=== PATIENT | male | born 1945 | race American Indian/Alaskan Native ===

== ENCOUNTER 2017-02-25 07:41 | Inpatient (IN) | payer MEDICARE ==
[2017-02-23 08:32] VITALS: BMI 21.2
[2017-02-25] MEDS ORDERED: Acetylcysteine 20% Inhal Soln (4ml) INH ONE (07:45)
[2017-02-25] MEDS ORDERED: HEPARIN-NS 5,000 UNITS/500 ML 10,000 UNIT/1,000 ML BAG IV ONE (08:15)
[2017-02-25] MEDS ORDERED: Iodixanol 320 MG/ML 200 ML BOTTLE IV ONE (08:15)
[2017-02-25] MEDS ORDERED: ceFAZolin IV 1 gm in Dextrose 0 GM/0 ML BAG IVPB ONE (08:15)
[2017-02-25] MEDS ORDERED: Sodium Chloride 0.9% 1,000 ML IV ONE (08:19)
[2017-02-25] MEDS ORDERED: Dexmedetomidine Hydrochloride 100 mcg/ml (2ML) ONE (08:38)
[2017-02-25] MEDS ORDERED: Propofol 10 mg/ml 1,000 MG/100 ML VIAL ONE (08:39)
[2017-02-25] MEDS ORDERED: ceFAZolin IV 2 gm in Dextrose 1 GM/50 ML BAG IVPB ONE (08:41)
[2017-02-25] MEDS ORDERED: Midazolam 2 MG/2 ML VIAL ONE (08:47)
[2017-02-25] MEDS ORDERED: Lactated Ringer's 1,000 ML IV ONE ×2 (08:50→10:30)
[2017-02-25] MEDS ORDERED: Sodium Chloride 0.9% 500 ML IV ONE (08:50)
[2017-02-25] MEDS ORDERED: Lidocaine 1% Inj (20ml) ONE (08:51)
[2017-02-25] MEDS ORDERED: HYDROmorphone 0.5 mg/0.5 ml ISec IVP PRN (10:57)
[2017-02-25] MEDS ORDERED: HEPARIN-NS 5,000 UNITS/500 ML 5,000 UNIT/500 ML BAG IV ONE (11:11)
--- NOTE | 2017-02-25 12:03 | PCM.SURG1 ---
Surgeon's Initial Post Op Note - Surgeon's Notes Surgeon: marla/ Barbie Hoffman Director Of Curriculum And Instruction: 0 Type of Anesthesia: IV Sedation Anesthesia Administered By: kerri Pre-Operative Diagnosis: AAA Operative Findings: successful deployment of stent graft. with no evidence of endo leak Post-Operative Diagnosis: same Operation Performed: Percutaneous endovascular repair of AAA. suprarenal 34- 100. main body 28-90. left iliac extension 20-13/80. balloon 9x40 left ext ilac distal to stent. perclose both groins Specimen/Specimens Removed: 0 Estimated Blood Loss: EBL {In ML}: 300 Blood Products Given: N/A Drains Used: No Drains Post-Op Condition: Good Date of Surgery/Procedure: 02/25/17 Time of Surgery/Procedure: 12:03
[2017-02-25] MEDS ORDERED: Acetylcysteine 20% Inhal Soln (4ml) PO SCH ×2 (12:15→14:00)
[2017-02-25 12:47] LABS: HEMATOCRIT 35.1 % (35.0-51.0); MEAN CELL VOLUME 87.8 fL (80.0-94.0); MEAN CORPUSCULAR HEMOGLOBIN 28.5 pg (27.0-31.0); MEAN CORPUSCULAR HGB CONC 32.5 g/dL (33.0-37.0); MEAN PLATELET VOLUME 8.2 fL (7.2-11.7); RED CELL DISTRIBUTION WIDTH 15.4 % (11.5-14.5); WHITE BLOOD COUNT 8.5 K/uL (4.8-10.8)
[2017-02-25 13:06] LABS: POTASSIUM 5.1 mmol/L (3.6-5.2)
[2017-02-25 13:08] LABS: BILIRUBIN,TOTAL 0.3 mg/dL (0.2-1.3)
[2017-02-25 13:09] LABS: ALB/GLOB RATIO 0.9 (1.0-2.1); CALCIUM 7.4 mg/dl (8.6-10.4); TOTAL PROTEIN 5.5 g/dL (6.3-8.3)
[2017-02-25] MEDS ORDERED: ceFAZolin 1 gm FROZEN Premix 1 GM/50 ML ML IVPB SCH (14:00)
--- NOTE | 2017-02-25 16:12 | OP ---
PROCEDURE DATE: 02/25/2017 PREOPERATIVE DIAGNOSIS: Abdominal aortic aneurysm. POSTOPERATIVE DIAGNOSIS: Abdominal aortic aneurysm. PROCEDURE CARRIED OUT: Percutaneous endovascular repair of abdominal aortic aneurysm using AFX2 Endo logix stent graft with 1 proximal extension, 1 left iliac extension and subsequently balloon angiopla sty outside the zone. DESCRIPTION OF PROCEDURE: Initially percutaneous access was obtained via the left groin and 2 Perclo se devices were deployed using micropuncture technique. On the right side, we deployed a 7-Serbian sh eath into the region of the iliac bifurcation. Subsequent to this, the wires were exchanged for a Siobhan nderquist wire into the thoracic aorta and then the main device was deployed over the wire. A snare was used to retract the feeder wire from the left side down into the right side and at this point, we had some technical problems ____ dissection after we had eventually ____ surmounted and the device w as snared, pulled out and the device was deployed onto the aortic bifurcation where both of these wer e released at the appropriate position. After this had all been held into proper position, we then p laced a pigtail catheter up to the region of the aortic bifurcation. I took a set of films to see wh ere the location of the renal arteries were with the proper orientation and then deployed the proxima l piece, which was 34 x 100 piece. The main body had been a 28 x 90 with the limbs of 20 x 30. Afte r they had been deployed appropriately, we then ____ there was a floating flap on the left side at th e region of the stent, so we deployed a longer stent here, an extension measuring 20 x 13 in outward diameters and 88 length. This was deployed appropriately with resolution of this problem ____. Dist al to this, there was a slight area of narrowing and we ballooned this with a 9 mm balloon. In addit ion, inside the stent, there was an area of 6 mm measured, we deployed this with a 9 mm balloon and d ilated it successfully. So at this point, we had deployed the main body, the proximal extension, the left iliac extension and then inside the stent there was some narrowing, we ballooned that with a 9 mm balloon and then just distal to this, we also deployed it. After this had been completed, we chec ked for endoleaks and had final films that were quite satisfactory, both above and below with seals. We then removed the device and deployed the Perclose devices on both sides and terminated the proced ure. Blood loss for the procedure was approximately 300 mL. SURGEON: Dr. Sami Hung. COSURGEON: Interventional radiologist, Dr. Nhan Hoffman. ANESTHESIA: Lydia Coleman CRNA. ESTIMATED BLOOD LOSS: 300 mL. OPERATION CARRIED OUT: Percutaneous endovascular repair of abdominal aortic aneurysm with deployment of an AFX2 endovascular stent graft with main body proximally and an open mesh extension and distall y one extension into the left iliac artery. Sami Hung Jr., MD cc: [id number] TT: 02/25/2017 13:56:51 pepito
[2017-02-25] MEDS: ceFAZolin 1 gm FROZEN Premix 1 GM/50 ML ML IVPB SCH (16:26)
[2017-02-25] MEDS: Dextrose 5%/0.45% NS 1,000 ML IV SCH ×3 (16:27→22:51)
--- NOTE | 2017-02-25 16:50 | RAD ---
PROCEDURE: Intraoperative fluoroscopy HISTORY: AAA COMPARISON: Not available TECHNIQUE: Intraoperative fluoroscopy was provided for aortic stent placement. Total time of fluoroscopy was 2263.4 seconds. FINDINGS: Multiple fluoroscopic spot films are submitted. Films are on file for review. IMPRESSION: Fluoroscopy provided.
[2017-02-25] MEDS: Sodium Chloride 0.9% 1,000 ML IV SCH ×2 (17:16→17:19)
[2017-02-25] MEDS: HYDROmorphone 1 mg/ml ISec IVP PRN (17:50)
[2017-02-26] MEDS: ceFAZolin 1 gm FROZEN Premix 1 GM/50 ML ML IVPB SCH ×2 (01:14→08:42)
[2017-02-26] MEDS: Dextrose 5%/0.45% NS 1,000 ML IV SCH ×2 (01:15→07:31)
[2017-02-26] MEDS: HYDROmorphone 1 mg/ml ISec IVP PRN (01:35)
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
[2017-02-26 06:38] LABS: HEMATOCRIT 33.8 % (35.0-51.0); MEAN CELL VOLUME 87.9 fL (80.0-94.0); MEAN CORPUSCULAR HEMOGLOBIN 28.3 pg (27.0-31.0); MEAN CORPUSCULAR HGB CONC 32.2 g/dL (33.0-37.0); MEAN PLATELET VOLUME 8.8 fL (7.2-11.7); WHITE BLOOD COUNT 13.7 K/uL (4.8-10.8)
[2017-02-26 07:02] LABS: CHLORIDE 109 mmol/L (98-107); POTASSIUM 4.5 mmol/L (3.6-5.2); SODIUM 132 mmol/L (132-148)
[2017-02-26 07:04] LABS: ALKALINE PHOSPHATASE 104 U/L (38-126); AST/SGOT 17 U/L (17-59); BILIRUBIN,TOTAL 0.5 mg/dL (0.2-1.3); BLOOD UREA NITROGEN 21 mg/dL (9-20); CARBON DIOXIDE 18 mmol/L (22-30); GFR AFRICAN-AMERICAN > 60; TOTAL PROTEIN 5.4 g/dL (6.3-8.3)
[2017-02-26 07:05] LABS: ALT/SGPT 17 U/L (21-72); CALCIUM 7.7 mg/dl (8.6-10.4); GLUCOSE,RANDOM 93 mg/dL (75-110); MAGNESIUM 1.8 mg/dL (1.6-2.3); PHOSPHOROUS 3.2 mg/dL (2.5-4.5)
[2017-02-26 07:11] LABS: ALB/GLOB RATIO 0.9 (1.0-2.1)
[2017-02-26] MEDS ORDERED: Magnesium Hydroxide Susp 30 ml UD PO ONE (08:01)
--- NOTE | 2017-02-26 10:42 | CP.PCM.PN ---
<Enoch Leggett - Last Filed: 02/26/17 10:42> Subjective - Date & Time of Evaluation Date of Evaluation: 02/26/17 Time of Evaluation: 10:40 - Subjective Subjective: SURGERY NOTE FOR DR. HUNG 71M seen and examined at bedside. Patient doing well, no complaints. Sitting up eating breakfast. Patient is tolerating diet. Denies pain, right groin site of operation is CDI. Objective - Vital Signs/Intake and Output Vital Signs (last 24 hours): Temp Pulse Resp BP Pulse Ox 97.4 F L 97 H 18 147/95 H 100 02/26/17 08:00 02/26/17 08:00 02/26/17 09:00 02/26/17 10:02 02/26/17 09:00 Intake and Output: 02/26/17 02/26/17 06:59 18:59 Intake Total 2135 600 Output Total 505 180 Balance 1630 420 - Medications Medications: Current Medications Acetylcysteine (Acetylcysteine 20%) 3 ml PO Q12H [facility] Aspirin (Ecotrin) 81 mg PO DAILY [facility] Last Admin: 02/26/17 09:01 Dose: 81 mg Clopidogrel Bisulfate (Plavix) 75 mg PO DAILY [facility] Last Admin: 02/26/17 09:01 Dose: 75 mg Enalapril Maleate (Vasotec) 10 mg PO DAILY [facility] Last Admin: 02/26/17 10:02 Dose: 10 mg Famotidine (Pepcid) 20 mg PO DAILY [facility] Last Admin: 02/26/17 09:01 Dose: 20 mg Finasteride (Proscar) 5 mg PO DAILY [facility] Last Admin: 02/26/17 09:02 Dose: 5 mg Hydromorphone HCl (Dilaudid) 1 mg IVP Q4H PRN PRN Reason: Pain, moderate (4-7) Last Admin: 02/26/17 01:35 Dose: 1 mg Cefazolin Sodium (Ancef) 1 gm in 50 mls @ 100 mls/hr IVPB Q8H [facility] Stop: 02/26/17 17:01 Last Admin: 02/26/17 08:42 Dose: 100 mls/hr Phenytoin Sodium (Dilantin) 100 mg PO TID [facility] Last Admin: 02/26/17 09:01 Dose: 100 mg Pneumococcal Polyvalent Vaccine (Pneumovax 23 Vaccine) 0.5 ml IM .ONCE ONE Stop: 02/28/17 15:58 Rosuvastatin Calcium (Crestor) 10 mg PO HS [facility] - Labs Labs: 02/26/17 06:27 02/26/17 06:27 - Constitutional Appears: Non-toxic, No Acute Distress - Respiratory Exam Respiratory Exam: Clear to Ausculation Bilateral, NORMAL BREATHING PATTERN - Cardiovascular Exam Cardiovascular Exam: REGULAR RHYTHM, +S1, +S2 - GI/Abdominal Exam GI & Abdominal Exam: Soft. absent: Distended, Firm, Guarding, Rigid, Tenderness , Rebound - Extremities Exam Additional comments: right groin CDI - Neurological Exam Neurological Exam: Alert, Awake - Skin Skin Exam: Dry, Intact, Normal Color, Warm Assessment and Plan - Assessment and Plan (Free Text) Assessment: 71m presents s/p EVAR POD1 - continue pain control - Out of bed/ DC vance - abdominal exams, right groin check - ADAT -Further recs discuss with Dr. Abhilash Leggett, PGY1 <Sami Hung Jr. - Last Filed: 02/26/17 14:28> Subjective - Subjective Subjective: dw hct stable bun cr lower legs well perfused dc home fu 1 week Objective - Vital Signs/Intake and Output Vital Signs (last 24 hours): Temp Pulse Resp BP Pulse Ox 98.1 F 118 H 19 139/84 100 02/26/17 12:00 02/26/17 12:30 02/26/17 12:30 02/26/17 12:00 02/26/17 12:30 Intake and Output: 02/26/17 02/26/17 06:59 18:59 Intake Total 2135 1150 Output Total 505 370 Balance 1630 780 - Medications Medications: Current Medications Acetylcysteine (Acetylcysteine 20%) 3 ml PO Q12H [facility] Aspirin (Ecotrin) 81 mg PO DAILY [facility] Last Admin: 02/26/17 09:01 Dose: 81 mg Clopidogrel Bisulfate (Plavix) 75 mg PO DAILY [facility] Last Admin: 02/26/17 09:01 Dose: 75 mg Enalapril Maleate (Vasotec) 10 mg PO DAILY [facility] Last Admin: 02/26/17 10:02 Dose: 10 mg Famotidine (Pepcid) 20 mg PO DAILY [facility] Last Admin: 02/26/17 09:01 Dose: 20 mg Finasteride (Proscar) 5 mg PO DAILY [facility] Last Admin: 02/26/17 09:02 Dose: 5 mg Hydromorphone HCl (Dilaudid) 1 mg IVP Q4H PRN PRN Reason: Pain, moderate (4-7) Last Admin: 02/26/17 01:35 Dose: 1 mg Cefazolin Sodium (Ancef) 1 gm in 50 mls @ 100 mls/hr IVPB Q8H [facility] Stop: 02/26/17 17:01 Last Admin: 02/26/17 08:42 Dose: 100 mls/hr Phenytoin Sodium (Dilantin) 100 mg PO TID [facility] Last Admin: 02/26/17 09:01 Dose: 100 mg Pneumococcal Polyvalent Vaccine (Pneumovax 23 Vaccine) 0.5 ml IM .ONCE ONE Stop: 02/28/17 15:58 Rosuvastatin Calcium (Crestor) 10 mg PO HS [facility] - Labs Labs: 02/26/17 06:27 02/26/17 06:27
[2017-02-26 13:00] VITALS: BP 139/84; PULSE 118; RESP 19
[2017-02-26] MEDS ORDERED: Pneumococcal 23-Valent Vaccine IM ONE (14:52)
[2017-02-26 16:12] VITALS: TEMP 98.4; O2SAT 99
--- NOTE | 2017-02-27 10:36 | CON ---
DATE: 02/26/2017 A 71-year-old male, history of hypertension, seizure, back pain, history of abdominal aneurysm, admit clarisa to the hospital with chief complaint of aneurysm and repair. The patient has a longstanding hist ory of hypertension with seizures ____. The patient is ex-smoker. PHYSICAL EXAMINATION: GENERAL: The patient is awake, alert, oriented. VITAL SIGNS: Temperature 98, pulse 90. HEENT: Within normal limits. NECK: Supple. CHEST: Symmetrical. HEART: Regular. ABDOMEN: Soft. EXTREMITIES: No edema. The patient suffers from abdominal aneurysm, hypertension, seizure, back pain. The patient sill get aneurysm repair, supportive care, ____ blood pressure medication. Arthur Gould MD cc: [id number] TT: 02/26/2017 11:20:11 Confirmation # [id number] Dictation # [id number] tn
[2017-02-28] MEDS ORDERED: Pneumococcal 23-Valent Vaccine IM ONE (15:57)
== END 2017-02-26 16:55 | disposition home or self-care (01) | DRG 269 ==
LOC: C.9S 07:41 → C.9I 12:35
PROVIDERS: ADMIT Surgery Vascular Surgery; ATTEND Surgery Vascular Surgery
PROC: 04V03D6 (ICD-10-PCS; principal; 2017-02-25 09:00)
DX: I71.4 Abdominal aortic aneurysm, without rupture (principal); I10 Essential (primary) hypertension; M54.9 Dorsalgia, unspecified; H53.8 Other visual disturbances; Z87.891 Personal history of nicotine dependence; Z23 Encounter for immunization; Z86.73 Personal history of transient ischemic attack (TIA), and cerebral infarction without residual deficits

== ENCOUNTER 2018-08-04 12:39 | Inpatient (IN) | payer MEDICARE ==
[2018-08-04 12:40] VITALS: BMI 21.2
[2018-08-04 14:01] LABS: BASO # 0.1 K/uL (0.0-0.2); BASO % 1.3 % (0.0-2.0); EOS # 0.2 K/uL (0.0-0.7); EOS % 2.9 % (0.0-4.0); HEMOGLOBIN 12.3 g/dL (12.0-18.0); LYMPH # 1.7 K/uL (1.0-4.3); LYMPH % 21.4 % (20.0-40.0); MEAN CELL VOLUME 85.6 fL (80.0-94.0); MEAN CORPUSCULAR HEMOGLOBIN 27.7 pg (27.0-31.0); MEAN CORPUSCULAR HGB CONC 32.4 g/dL (33.0-37.0); MEAN PLATELET VOLUME 9.1 fL (7.2-11.7); MONO # 0.7 K/uL (0.0-0.8); MONO % 8.3 % (0.0-10.0); NEUT # 5.3 K/uL (1.8-7.0); NEUT % 66.1 % (50.0-75.0); RBC 4.44 Mil/uL (4.40-5.90); RED CELL DISTRIBUTION WIDTH 15.6 % (11.5-14.5); WHITE BLOOD COUNT 8.1 K/uL (4.8-10.8)
--- NOTE | 2018-08-04 14:11 | C.PDOC ---
History Of Present Illness 73 year old male presents to the ED referred by Dr. Prince for renal insufficiency to be admitted under the service of Dr. Sin for dialysis. Reports his renal function has been deteriorating pver the past 2 months. He has mild intermittent pedal edema. Denies any bladder dysfunction, shortness of breath, chest pain, fever, chills, nausea, vomiting, or any other symptoms. Time Seen by Provider: 08/04/18 13:33 Chief Complaint (Nursing): Medical Clearance History Per: Patient History/Exam Limitations: no limitations Onset/Duration Of Symptoms: Days Current Symptoms Are (Timing): Still Present Reports Recently: Treated By A Physician Past Medical History Reviewed: Historical Data, Nursing Documentation, Vital Signs Vital Signs: Last Vital Signs Temp 97.5 F L 08/04/18 12:42 Pulse 90 08/04/18 12:42 Resp 18 08/04/18 12:42 BP 190/104 H 08/04/18 12:42 Pulse Ox 100 08/04/18 12:42 - Medical History PMH: Fractures (BACK RODS AND PINS OVER 30 YRS AGO), HTN, TIA (?? NO RESIDUAL) Surgical History: Endoscopy - [facility] Procedures RESTRICT ABD AORTA, BIFURC, W INTRALUM DEV, PERC (02/25/17) Family History: States: No Known Family Hx - Social History Hx Alcohol Use: Yes (Ex drinker) Hx Substance Use: No - Immunization History Hx Tetanus Toxoid Vaccination: No Hx Influenza Vaccination: Yes (08/02/2018) Hx Pneumococcal Vaccination: No Review Of Systems Except As Marked, All Systems Reviewed And Found Negative. Constitutional: Negative for: Fever, Chills Cardiovascular: Negative for: Chest Pain Respiratory: Negative for: Shortness of Breath Gastrointestinal: Negative for: Nausea, Vomiting Genitourinary: Positive for: Other (renal insufficiency). Negative for: Incontinence Physical Exam - Physical Exam Appears: Non-toxic, No Acute Distress Skin: Warm, Dry, No Rash Head: Normacephalic Eye(s): bilateral: Normal Inspection Nose: Normal Oral Mucosa: Moist Neck: Supple Chest: Symmetrical Respiratory: Rales (basilar), No Rhonchi, No Wheezing Gastrointestinal/Abdominal: Soft, No Tenderness Extremity: Normal ROM, Swelling (b/l feet ) Extremity: Bilateral: Atraumatic, Normal Color And Temperature, Normal ROM Neurological/Psych: Oriented x3, Normal Speech ED Course And Treatment - Laboratory Results Result Diagrams: 08/04/18 13:58 08/04/18 13:58 Lab Interpretation: Abnormal (K+ 5.8, HCO3 16, BUN 50, Cr 3.3) O2 Sat by Pulse Oximetry: 100 (RA) Pulse Ox Interpretation: Normal - Radiology CXR: Viewed By Me, Read By Radiologist CXR Interpretation: Yes: No Acute Disease - Physician Consult Information Time Consulting Physician Contacted: 14:52 Physician Contacted: Arthur Sin Outcome Of Conversation: Patient to be admitted to his service for initiation of remal dialysis. Medical Decision Making Medical Decision Making: Plan - EKG - Bloodwork - CXR - UA Disposition - Disposition Disposition: HOSPITALIZED Disposition Time: 14:53 Condition: STABLE - POA Present On Arrival: None - Clinical Impression Clinical Impression: End stage renal disease, Hyperkalemia - Scribe Statement The provider has reviewed the documentation as recorded by the Scribe Aissatou Lott All medical record entries made by the Scribe were at my direction and personally dictated by me. I have reviewed the chart and agree that the record accurately reflects my personal performance of the history, physical exam, medical decision making, and the department course for this patient. I have also personally directed, reviewed, and agree with the discharge instructions and dis position.
[2018-08-04 14:14] LABS: CALCIUM 8.5 mg/dl (8.6-10.4)
[2018-08-04 14:18] LABS: ALB/GLOB RATIO 1.3 (1.0-2.1); ALBUMIN 4.4 g/dL (3.5-5.0)
[2018-08-04 14:27] LABS: SQUAMOUS EPITHIAL 3 /hpf (0-5); URINE AMORPHOUS SEDIMENT RARE /ul (<OCC); URINE BACTERIA MANY (<OCC); URINE BILIRUBIN NEGATIVE (NEGATIVE); URINE BLOOD 2+ (NEGATIVE); URINE CLARITY Hazy (Clear); URINE COLOR Yellow (YELLOW); URINE GLUCOSE (UA) NORMAL (Normal); URINE LEUKOCYTE ESTERASE 3+ Leu/uL (Negative); URINE PROTEIN 2+ mg/dL (NEGATIVE); URINE UROBILINOGEN NORMAL mg/dL (0.2-1.0)
--- NOTE | 2018-08-04 14:36 | RAD ---
Date of service: 08/04/2018 HISTORY: SOB COMPARISON: No prior. TECHNIQUE: Chest PA and lateral FINDINGS: LUNGS: No active pulmonary disease. PLEURA: No significant pleural effusion identified. No pneumothorax apparent. CARDIOVASCULAR: No aortic atherosclerotic calcification present. Normal cardiac size. No pulmonary vascular congestion. OSSEOUS STRUCTURES: No significant abnormalities. Stable position of Guthrie rods. No evidence of hardware failure. Osseous pleural findings related to multiple old/healed lateral left rib fractures. VISUALIZED UPPER ABDOMEN: Normal. OTHER FINDINGS: None. IMPRESSION: No active disease. No significant interval change compared to the prior examination(s).
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
[2018-08-04 16:49] LABS: PROTHROMBIN TIME 10.7 SECONDS (9.7-12.2)
[2018-08-04 16:50] LABS: HEPATITIS B SURFACE AG Negative (NEGATIVE)
[2018-08-04 16:55] LABS: HEPATITIS B CORE AB NEGATIVE (NEGATIVE)
[2018-08-04 17:07] LABS: HEPATITIS C ANTIBODY NEGATIVE (NEGATIVE)
[2018-08-04] MEDS ORDERED: Sod Polystyrene Sulf 15 gm/60 ml Susp PO ONE (17:21)
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
[2018-08-04] MEDS ORDERED: Sod Polystyrene Sulf 15 gm/60 ml Susp ONE (17:56)
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
[2018-08-05 07:52] LABS: BASO # 0.1 K/uL (0.0-0.2); BASO % 1.3 % (0.0-2.0); EOS # 0.2 K/uL (0.0-0.7); EOS % 3.4 % (0.0-4.0); LYMPH # 1.3 K/uL (1.0-4.3); LYMPH % 20.2 % (20.0-40.0); MEAN CELL VOLUME 85.2 fL (80.0-94.0); MEAN CORPUSCULAR HEMOGLOBIN 27.7 pg (27.0-31.0); MEAN CORPUSCULAR HGB CONC 32.5 g/dL (33.0-37.0); MEAN PLATELET VOLUME 9.2 fL (7.2-11.7); MONO # 0.7 K/uL (0.0-0.8); MONO % 11.3 % (0.0-10.0); NEUT # 4.1 K/uL (1.8-7.0); NEUT % 63.8 % (50.0-75.0); RBC 3.96 Mil/uL (4.40-5.90); RED CELL DISTRIBUTION WIDTH 15.1 % (11.5-14.5); WHITE BLOOD COUNT 6.5 K/uL (4.8-10.8)
[2018-08-05 08:15] LABS: ALB/GLOB RATIO 1.2 (1.0-2.1); ALBUMIN 3.4 g/dL (3.5-5.0); CALCIUM 8.2 mg/dl (8.6-10.4)
[2018-08-05] MEDS ORDERED: Lidocaine Hydrochloride 10 ML INJ ONE (08:57)
[2018-08-05] MEDS ORDERED: HEPARIN-NS 5,000 UNITS/500 ML 5,000 UNIT/500 ML BAG IV ONE (08:57)
--- NOTE | 2018-08-05 09:13 | CP.PCM.PN ---
Subjective - Date & Time of Evaluation Date of Evaluation: 08/05/18 Time of Evaluation: 09:13 - Subjective Subjective: PGY3 Note for Dr. Sin Patient was seen and examined at bedside this AM; denies any acute complaints or overnight events; denies fevers/chills, SIDDIQI, CP, SOB, abdominal pain, n/v/d dysuria/freq/urg or lower extremity pain/swelling. Patient is anxious for his procedure today; explained in detail and answered all questions. Objective - Vital Signs/Intake and Output Vital Signs (last 24 hours): Temp Pulse Resp BP Pulse Ox 97.7 F 74 20 169/92 H 100 08/05/18 08:38 08/05/18 08:38 08/05/18 08:38 08/05/18 08:38 08/05/18 08:38 - Medications Medications: Current Medications Acetaminophen (Tylenol 325mg Tab) 650 mg PO Q6 PRN PRN Reason: Pain, severe (8-10) Last Admin: 08/04/18 17:16 Dose: 650 mg Amlodipine Besylate (Norvasc) 10 mg PO DAILY [facility] Last Admin: 08/05/18 08:25 Dose: 10 mg Calcitriol (Rocaltrol) 0.25 mcg PO DAILY [facility] Clonidine HCl (Catapres) 0.1 mg PO Q12H [facility] Last Admin: 08/05/18 05:28 Dose: 0.1 mg Docusate Sodium (Colace) 100 mg PO BID [facility] Ferrous Sulfate (Feosol) 325 mg PO DAILY [facility] Finasteride (Proscar) 1 mg PO DAILY [facility] Furosemide (Lasix) 80 mg PO DAILY [facility] Pantoprazole Sodium (Protonix Ec Tab) 20 mg PO DAILY [facility] Phenytoin Sodium (Dilantin) 100 mg PO TID [facility] Rosuvastatin Calcium (Crestor) 10 mg PO HS [facility] Last Admin: 08/04/18 21:17 Dose: 10 mg - Labs Labs: 08/05/18 07:42 08/05/18 07:42 PT 10.7 SECONDS (9.7-12.2) 08/04/18 16:34 INR 1.0 08/04/18 16:34 APTT 31 SECONDS (21-34) 08/04/18 16:34 - Constitutional Appears: Well, Non-toxic - Head Exam Head Exam: ATRAUMATIC, NORMAL INSPECTION - Eye Exam Eye Exam: EOMI, Normal appearance, PERRL - ENT Exam ENT Exam: Mucous Membranes Moist - Neck Exam Neck Exam: Full ROM. absent: Lymphadenopathy - Respiratory Exam Respiratory Exam: Clear to Ausculation Bilateral, NORMAL BREATHING PATTERN. absent: Rales, Rhonchi, Wheezes - Cardiovascular Exam Cardiovascular Exam: REGULAR RHYTHM, +S1, +S2 - GI/Abdominal Exam GI & Abdominal Exam: Soft, Normal Bowel Sounds. absent: Tenderness - Extremities Exam Extremities Exam: Full ROM. absent: Calf Tenderness - Back Exam Back Exam: NORMAL INSPECTION. absent: CVA tenderness (L), CVA tenderness (R) - Neurological Exam Neurological Exam: Alert, Awake, Oriented x3 - Skin Skin Exam: Cyanosis, Warm Assessment and Plan - Assessment and Plan (Free Text) Assessment: 73yo AA M admitted for ESRD and need for vascular access and HTN urgency Chronic Kidney Disease - stage 5 - Nephrology Consult: Dr. Prince --> help appreciated -vein mapping 08/05; f/u results - Vascular Surgery: Dr. Hung --> help appreciated -for permacath placement 08/05 - BUN/Cr: 50/3.3 - Chest Xray: No active disease. No significant interval change compared to the prior examination(s). HTN urgency/labile BP - Medications: * Furosemide 80mg daily * Clonidine 0.1mg q12h * amlodipine 10mg daily * losartan 25mg daily Hyperkalemia;resolved - secondary to ESRD - K 5.8 - EKG: NSR; old bundle branch block (per PMD Dr. Sin) - Kayexalte 30gm given once Metabolic Acidosis;resolved - secondary to ESRD - anion gap of 12 History of CAD - Patient had a AAA repair 02/2017 - Outside Sales Account Manager Dr. Walker --> help appreciated - Medications: * ASA 81mg po daily - held 08/04/18 for surgery * Plavix 75mg po daily - held 08/04/18 for surgery * Crestor 10mg po HS History of HLD - Crestor 10mg po HS History of Seizure Disorder - Continue home medication: Phenytoin 100mg po tid History of Chronic Anemia - Continue Ferrous Sulfate 325mg daily - Colace 100mg bid History of GERD - Protonix 20mg daily History of BPH - Continue Finasteride 5mg daily Prophylaxis - VTE prophylaxis - held for surgery - SCDs - Colace 100mg bid Case discussed with Dr. Sin
--- NOTE | 2018-08-05 09:58 | RAD ---
Chest x-ray single frontal view HISTORY: Preoperative evaluation. COMPARISON: X-ray dated 02/23/2017 FINDINGS: Again identified are multiple left-sided rib deformities. Mild venous congestion. Tortuous ectatic aorta. Right paratracheal prominence may represent prominent vasculature. Biapical pleural thickening with upper lobe granulomatous changes. Mild left basilar atelectatic changes. Spinal stabilization rods in place. Degenerative changes in the spine and shoulders. Impression: Again identified are multiple left-sided rib deformities. Mild venous congestion. Tortuous ectatic aorta. Right paratracheal prominence may represent prominent vasculature. Biapical pleural thickening with upper lobe granulomatous changes. Mild left basilar atelectatic changes. Spinal stabilization rods in place. Degenerative changes in the spine and shoulders.
[2018-08-05] MEDS ORDERED: ceFAZolin IV 1 gm in Dextrose 1 GM/50 ML BAG IVPB ONE (10:26)
[2018-08-05] MEDS: Pantoprazole 20 mg EC Tab PO SCH (10:30)
--- NOTE | 2018-08-05 10:56 | CP.PCM.PN ---
Subjective - Date & Time of Evaluation Date of Evaluation: 08/05/18 Time of Evaluation: 10:54 - Subjective Subjective: Feels better today Severe HTN controlled with meds Creat around 4 mg % in office Agreed for dilaysis today Await permcath Objective - Vital Signs/Intake and Output Vital Signs (last 24 hours): Temp Pulse Resp BP Pulse Ox 97.7 F 74 20 124/54 L 100 08/05/18 08:38 08/05/18 08:38 08/05/18 08:38 08/05/18 10:30 08/05/18 08:38 - Medications Medications: Current Medications Acetaminophen (Tylenol 325mg Tab) 650 mg PO Q6 PRN PRN Reason: Pain, severe (8-10) Last Admin: 08/04/18 17:16 Dose: 650 mg Amlodipine Besylate (Norvasc) 10 mg PO DAILY [facility] Last Admin: 08/05/18 10:34 Dose: Not Given Calcitriol (Rocaltrol) 0.25 mcg PO DAILY [facility] Last Admin: 08/05/18 10:30 Dose: 0.25 mcg Clonidine HCl (Catapres) 0.1 mg PO Q12H [facility] Last Admin: 08/05/18 05:28 Dose: 0.1 mg Docusate Sodium (Colace) 100 mg PO BID [facility] Last Admin: 08/05/18 10:30 Dose: 100 mg Ferrous Sulfate (Feosol) 325 mg PO DAILY [facility] Last Admin: 08/05/18 10:30 Dose: 325 mg Finasteride (Proscar) 1 mg PO DAILY [facility] Last Admin: 08/05/18 10:31 Dose: 1 mg Furosemide (Lasix) 80 mg PO DAILY [facility] Last Admin: 08/05/18 10:30 Dose: 80 mg Losartan Potassium (Cozaar) 25 mg PO DAILY [facility] Pantoprazole Sodium (Protonix Ec Tab) 20 mg PO DAILY [facility] Last Admin: 08/05/18 10:30 Dose: 20 mg Phenytoin Sodium (Dilantin) 100 mg PO TID [facility] Last Admin: 08/05/18 10:30 Dose: 100 mg Rosuvastatin Calcium (Crestor) 10 mg PO HS [facility] Last Admin: 08/04/18 21:17 Dose: 10 mg - Labs Labs: 08/05/18 07:42 08/05/18 07:42 PT 10.7 SECONDS (9.7-12.2) 08/04/18 16:34 INR 1.0 08/04/18 16:34 APTT 31 SECONDS (21-34) 08/04/18 16:34 - Constitutional Appears: No Acute Distress, Chronically Ill - Head Exam Head Exam: ATRAUMATIC, NORMAL INSPECTION - Eye Exam Eye Exam: EOMI, Normal appearance - Neck Exam Neck Exam: Normal Inspection. absent: Tenderness - Respiratory Exam Respiratory Exam: Clear to Ausculation Bilateral, NORMAL BREATHING PATTERN - Cardiovascular Exam Cardiovascular Exam: REGULAR RHYTHM, +S1 - GI/Abdominal Exam GI & Abdominal Exam: Soft. absent: Tenderness - Extremities Exam Extremities Exam: Normal Inspection. absent: Tenderness - Neurological Exam Neurological Exam: Awake, CN II-XII Intact - Skin Skin Exam: Dry, Warm Assessment and Plan (1) Hypertensive chronic kidney disease with stage 5 chronic kidney disease or end stage renal disease Status: Acute (2) Metabolic acidosis Status: Acute (3) Chronic anemia Status: Acute (4) End stage renal disease Status: Acute (5) Hyperkalemia Status: Acute - Assessment and Plan (Free Text) Plan: permcath Monitor BP Dialysis later today
[2018-08-05] MEDS ORDERED: Propofol 10 mg/ml Inj (20 ML) ONE (11:21)
[2018-08-05] MEDS ORDERED: Midazolam 2 MG/2 ML VIAL ONE (11:21)
[2018-08-05] MEDS ORDERED: HYDROmorphone 0.5 mg/0.5 ml ISec IVP PRN (12:26)
--- NOTE | 2018-08-05 12:29 | PCM.SURG1 ---
Surgeon's Initial Post Op Note - Surgeon's Notes Surgeon: Dr. Hung Pain Medicine Physician: Dr. Knight Type of Anesthesia: IV Sedation, Local Pre-Operative Diagnosis: Renal failure Operative Findings: Placement confirmed via fluoro Post-Operative Diagnosis: renal failure Operation Performed: Right IJ Permacath Specimen/Specimens Removed: none Estimated Blood Loss: EBL {In ML}: 10 Blood Products Given: N/A Drains Used: No Drains Post-Op Condition: Fair Date of Surgery/Procedure: 08/05/18 Time of Surgery/Procedure: 12:30
--- NOTE | 2018-08-05 12:49 | RAD ---
Date of service: 08/05/2018 PROCEDURE: Intraoperative Fluoroscopy. HISTORY: RENAL FAILURE FINDINGS: Fluoroscopic assistance was provided for right-sided PermCath placement. Please refer to the operative report from ALFREDO Garzon.
--- NOTE | 2018-08-05 13:07 | RAD ---
Chest x-ray single frontal view HISTORY: PermCath placement. Comparison: 08/04/2018 FINDINGS: Right PermCath with tip extending into the right SVC. No evidence of postprocedure pneumothorax. Biapical pleural thickening with upper lobe granulomatous changes. Mild venous congestion. Patchy increased markings in the left midlung zone. Tortuous ectatic aorta. Spinal stabilization rods in place. Mild left basilar atelectasis. Degenerative changes in the shoulders. Deformities of several left lateral ribs. Impression: Right PermCath with tip extending into the right SVC. No evidence of postprocedure pneumothorax.
--- NOTE | 2018-08-05 14:19 | PCM.RRT ---
<Kendall Hernandez - Last Filed: 08/05/18 14:11> [employer] Nurses Assessment - Situation Date: 08/05/18 Time PR[employer] R[employer]ST[employer] was called: 14:05 [employer] Responder Arrival Time:: 14:08 [employer] Location:: Med/Surg Room Number: 553B I.Reason for [employer] - A) Acute Change in Patient: (Select all that apply): Uncontrolled Bleeding, Hemoptysis, Hematemesis, Melena (bleeding from new permacath) - Constitutional Appears: Well, Non-toxic - Head Head Exam: ATRAUMATIC, NORMAL INSPECTION - Eyes Eye Exam: EOMI, Normal appearance. absent: Periorbital tenderness, Scleral icterus - Respiratory Exam Respiratory Exam: NORMAL BREATHING PATTERN - Cardiovascular Exam Cardiovascular Exam: Tachycardia, +S1, +S2 - GI/Abdominal Exam GI & Abdominal Exam: absent: Tenderness - Neurological Exam Neurological Exam: Alert, Awake, CN II-XII Intact, Oriented x3 - Extremities Exam Additional comments: 250cc of jai red blood from newly inserted permacath site. Plan - Assessment of Findings&Treatment Plan BP194/99, HR 92, T97.7, O2 99% Room air Pt is s/p permacath placement surgery this AM Pt is bleeding approx 250cc of jai red blood from permacath site, surgery team present applying direct pressure to site, monitoring for continuous bleeding Pt recieved a 9am heparin bolus Pt is possibly getting dialysis later today, will monitor bleeding. 10min of direct manual pressure appluied for 10min Repeat CBC COAGs ordered Hep C studies ordered Repeat vitals @ 1420 BP 172/91, HR 101, T 97.7 Dr Sin notifyed <Jennifer Ramirez V - Last Filed: 08/09/18 00:02> [employer] Nurses Assessment - Vital Signs Vital Signs: Rapid Response Vital Sign Blood Pressure 194/99 Pulse Rate 92 Respiratory Rate 22 Temperature 97.7 F Oxygen Saturation 99 - Vital Signs at end of [employer] Vital Signs at end of [employer]ST[employer]OUT: Rapid Response End Vital Sign Blood Pressure 172/91 Pulse Rate 101 Respiratory Rate 20 Temperature 97.7 F O2 Sat by Pulse Oximetry 99 Attending/Attestation - Attestation I have personally seen and examined this patient.: Yes I have fully participated in the care of the patient.: Yes I have reviewed all pertinent clinical information, including history, physical exam and plan: Yes Notes (Text): This is late
[2018-08-05 14:49] LABS: BASO # 0.1 K/uL (0.0-0.2); BASO % 1.1 % (0.0-2.0); EOS # 0.2 K/uL (0.0-0.7); EOS % 2.7 % (0.0-4.0); LYMPH # 1.3 K/uL (1.0-4.3); LYMPH % 19.4 % (20.0-40.0); MEAN CELL VOLUME 84.9 fL (80.0-94.0); MEAN CORPUSCULAR HEMOGLOBIN 27.8 pg (27.0-31.0); MEAN CORPUSCULAR HGB CONC 32.7 g/dL (33.0-37.0); MEAN PLATELET VOLUME 8.6 fL (7.2-11.7); MONO # 0.4 K/uL (0.0-0.8); MONO % 5.8 % (0.0-10.0); NEUT # 4.8 K/uL (1.8-7.0); RBC 4.31 Mil/uL (4.40-5.90); RED CELL DISTRIBUTION WIDTH 15.2 % (11.5-14.5); WHITE BLOOD COUNT 6.8 K/uL (4.8-10.8)
[2018-08-05 14:51] LABS: PROTHROMBIN TIME 10.8 SECONDS (9.7-12.2)
[2018-08-05 15:01] LABS: ALB/GLOB RATIO 1.2 (1.0-2.1); ALBUMIN 3.7 g/dL (3.5-5.0); CALCIUM 8.4 mg/dl (8.6-10.4)
[2018-08-05] MEDS: Oxycodone/Acetaminophen 5/325 mg Tab PO PRN ×2 (16:10→21:05)
--- NOTE | 2018-08-05 18:56 | OP ---
PROCEDURE DATE: 08/05/2018 PREOPERATIVE DIAGNOSIS: Renal failure. POSTOPERATIVE DIAGNOSIS: Renal failure. PROCEDURE: Placement of right jugular Perma-Cath with C-arm fluoroscopy, ultrasound guided puncture, and micropuncture technique. SURGEON: Sami Hung Jr., MD. DATA PROCESSING EQUIPMENT REPAIRER: Latisha Knight DO. ANESTHESIA ADMINISTERED BY: Mr. Valera. INDICATIONS: The patient is an elderly man with previous history of abdominal aortic aneurysm, presents with renal failure, requiring dialysis, elevated potassium. OPERATIVE FINDINGS: Catheter was inserted uneventfully via the jugular vein. DESCRIPTION OF PROCEDURE: The patient was given local anesthesia using ultrasound guidance and micropuncture technique. The right jugular vein was cannulated. Under fluoroscopic control, the catheter was positioned in appropriate location. It was flushed with heparinized saline with good return. The catheter was then secured to the skin with sutures. The Biopatch applied and a dressing applied. Blood loss during the procedure was 10 mL. Operation carried out was placement of Perma-Cath right jugular vein with C-arm fluoroscopy, ultrasound guided puncture and micropuncture technique. Ultrasound images of neck showed that the vein in its greatest diameter is approximately 14 mm in diameter with no intraluminal thrombosis. Sami Hung Jr., MD
[2018-08-06 06:37] LABS: BASO # 0.1 K/uL (0.0-0.2); BASO % 0.7 % (0.0-2.0); EOS # 0.4 K/uL (0.0-0.7); EOS % 4.5 % (0.0-4.0); HEMOGLOBIN 11.1 g/dL (12.0-18.0); LYMPH # 1.4 K/uL (1.0-4.3); LYMPH % 17.1 % (20.0-40.0); MEAN CELL VOLUME 83.7 fL (80.0-94.0); MEAN CORPUSCULAR HEMOGLOBIN 27.7 pg (27.0-31.0); MEAN CORPUSCULAR HGB CONC 33.1 g/dL (33.0-37.0); MEAN PLATELET VOLUME 9.3 fL (7.2-11.7); MONO # 0.8 K/uL (0.0-0.8); MONO % 9.7 % (0.0-10.0); NEUT # 5.7 K/uL (1.8-7.0); NRBC % 0.1 % (0.0-2.0); RBC 4.02 Mil/uL (4.40-5.90); RED CELL DISTRIBUTION WIDTH 15.1 % (11.5-14.5); WHITE BLOOD COUNT 8.4 K/uL (4.8-10.8)
[2018-08-06 07:48] LABS: ALB/GLOB RATIO 1.1 (1.0-2.1); ALBUMIN 3.3 g/dL (3.5-5.0); CALCIUM 8.1 mg/dl (8.6-10.4)
[2018-08-06] MEDS: Pantoprazole 20 mg EC Tab PO SCH (11:13)
--- NOTE | 2018-08-06 12:45 | VASCLAB ---
Date of service: 08/05/2018 PROCEDURE: Upper Extremity Venous Mapping HISTORY: ESRD, vein mapping, pre-op av fistula. PRIORS: None. TECHNIQUE: Bilateral upper extremity, internal jugular, subclavian, axillary, brachial, ulnar, radial, basilic and upper cephalic veins were evaluated. Flow was assessed with color Doppler, compressibility, assessment of phasic flow and augmentation response. Report prepared by DON Ceron FINDINGS: RIGHT: 1. Internal Jugular Vein: Compressibility - Fully compressible: Thrombus - None : Flow - Phasic 2. Subclavian Vein:Compressibility - Fully compressible: Thrombus - None : Flow - Phasic 3. Axillary Vein: Compressibility - Fully compressible: Thrombus - None 4. Brachial Vein: Compressibility - Fully compressible: Thrombus - None 5. Ulnar Vein:Compressibility - Fully compressible: Thrombus - None 6. Radial Vein:Compressibility - Fully compressible: Thrombus - None 7. Cephalic Vein: 8. Basilic Vein: LEFT: 1. Internal Jugular Vein: Compressibility - Fully compressible: Thrombus - None : Flow - Phasic 2. Subclavian Vein:Compressibility - Fully compressible: Thrombus - None : Flow - Phasic 3. Axillary Vein: Compressibility - Fully compressible: Thrombus - None 4. Brachial Vein: Compressibility - Fully compressible: Thrombus - None 5. Ulnar Vein:Compressibility - Fully compressible: Thrombus - None 6. Radial Vein:Compressibility - Fully compressible: Thrombus - None 7. Cephalic Vein: 8. Basilic Vein: OTHER FINDINGS: No evidence of venous thrombosis in bilateral upper extremities. IMPRESSION: Bilateral basilic and cephalic veins were not visualized.
--- NOTE | 2018-08-06 13:08 | CP.PCM.PN ---
Subjective - Date & Time of Evaluation Date of Evaluation: 08/06/18 Time of Evaluation: 13:07 - Subjective Subjective: PGY3 Note for Dr. Sin This patient was seen and examined at bedside this AM; he denies any complaints; denies pain at the site of permacath placement states it is just sore; denies foster, cp, sob, abdominal pain, n/v/d, dysuria/freq/urg or lower extremity pain/swelling. Objective - Vital Signs/Intake and Output Vital Signs (last 24 hours): Temp Pulse Resp BP Pulse Ox 97.3 F L 88 20 143/65 100 08/06/18 08:00 08/06/18 08:00 08/06/18 08:00 08/06/18 11:05 08/06/18 08:00 - Medications Medications: Current Medications Acetaminophen (Tylenol 325mg Tab) 650 mg PO Q6 PRN PRN Reason: Pain, severe (8-10) Last Admin: 08/04/18 17:16 Dose: 650 mg Amlodipine Besylate (Norvasc) 10 mg PO DAILY [facility] Last Admin: 08/06/18 11:06 Dose: 10 mg Calcitriol (Rocaltrol) 0.25 mcg PO DAILY [facility] Last Admin: 08/06/18 11:13 Dose: 0.25 mcg Clonidine HCl (Catapres) 0.1 mg PO Q12H [facility] Last Admin: 08/06/18 06:20 Dose: 0.1 mg Docusate Sodium (Colace) 100 mg PO BID [facility] Last Admin: 08/06/18 11:05 Dose: 100 mg Ferrous Sulfate (Feosol) 325 mg PO DAILY [facility] Last Admin: 08/06/18 11:05 Dose: 325 mg Finasteride (Proscar) 1 mg PO DAILY [facility] Last Admin: 08/06/18 11:04 Dose: 1 mg Furosemide (Lasix) 80 mg PO DAILY [facility] Last Admin: 08/06/18 11:05 Dose: 80 mg Losartan Potassium (Cozaar) 25 mg PO DAILY [facility] Last Admin: 08/06/18 11:12 Dose: 25 mg Oxycodone/Acetaminophen (Percocet 5/325 Mg Tab) 1 tab PO Q4H PRN PRN Reason: Pain, moderate (4-7) Stop: 08/08/18 12:26 Last Admin: 08/05/18 21:05 Dose: 1 tab Pantoprazole Sodium (Protonix Ec Tab) 20 mg PO DAILY [facility] Last Admin: 08/06/18 11:13 Dose: 20 mg Phenytoin Sodium (Dilantin) 100 mg PO TID [facility] Last Admin: 08/06/18 11:12 Dose: 100 mg Rosuvastatin Calcium (Crestor) 10 mg PO HS [facility] Last Admin: 08/05/18 21:04 Dose: 10 mg - Labs Labs: 08/06/18 06:30 08/06/18 06:30 PT 10.8 SECONDS (9.7-12.2) 08/05/18 14:36 INR 1.0 08/05/18 14:36 APTT 34 SECONDS (21-34) 08/05/18 14:36 - Constitutional Appears: Well, Non-toxic - Head Exam Head Exam: ATRAUMATIC, NORMAL INSPECTION - Eye Exam Eye Exam: EOMI, Normal appearance, PERRL Pupil Exam: PERRL - ENT Exam ENT Exam: Mucous Membranes Moist Additional comments: permacath clean dry and intact in plcae with no bleeding - Neck Exam Neck Exam: Full ROM - Respiratory Exam Respiratory Exam: Clear to Ausculation Bilateral, NORMAL BREATHING PATTERN. absent: Rales, Rhonchi, Wheezes - Cardiovascular Exam Cardiovascular Exam: REGULAR RHYTHM, +S1, +S2 - GI/Abdominal Exam GI & Abdominal Exam: Soft, Normal Bowel Sounds - Extremities Exam Extremities Exam: Full ROM. absent: Calf Tenderness - Back Exam Back Exam: NORMAL INSPECTION. absent: CVA tenderness (L), CVA tenderness (R), paraspinal tenderness - Neurological Exam Neurological Exam: Alert, Awake, Oriented x3 - Skin Skin Exam: Warm Assessment and Plan - Assessment and Plan (Free Text) Assessment: 73yo AA M admitted for ESRD and need for vascular access and HTN urgency Chronic Kidney Disease - stage 5 - Nephrology Consult: Dr. Prince --> help appreciated -vein mapping 08/05; f/u results -c/w dialysis as per nephrology - Vascular Surgery: Dr. Hung --> help appreciated -for permacath placement 08/05; placed successfully -plan for AVF creation as well on this admission - BUN/Cr: 50/3.3 - Chest Xray: No active disease. No significant interval change compared to the prior examination(s). HTN urgency/labile BP - Medications: * Furosemide 80mg daily * Clonidine 0.1mg q12h * amlodipine 10mg daily * losartan 25mg daily Hyperkalemia;resolved - secondary to ESRD - K 5.8 - EKG: NSR; old bundle branch block (per PMD Dr. Sin) - Kayexalte 30gm given once Metabolic Acidosis;resolved - secondary to ESRD - anion gap of 12 History of CAD - Patient had a AAA repair 02/2017 - Meal Cooker Dr. Walker --> help appreciated - Medications: * ASA 81mg po daily - held 08/04/18 for surgery * Plavix 75mg po daily - held 08/04/18 for surgery * Crestor 10mg po HS History of HLD - Crestor 10mg po HS History of Seizure Disorder - Continue home medication: Phenytoin 100mg po tid History of Chronic Anemia - Continue Ferrous Sulfate 325mg daily - Colace 100mg bid History of GERD - Protonix 20mg daily History of BPH - Continue Finasteride 5mg daily Prophylaxis - VTE prophylaxis - held for surgery - SCDs - Colace 100mg bid Case discussed with Dr. Sin
--- NOTE | 2018-08-06 14:46 | CP.PCM.PN ---
Subjective - Date & Time of Evaluation Date of Evaluation: 08/06/18 Time of Evaluation: 14:43 - Subjective Subjective: stable dialysis 08/05 BP better controlled Metabolic acidosis, hyperkalemia resolved Permcath worked well Feels better; not dyspneic, eating well Objective - Vital Signs/Intake and Output Vital Signs (last 24 hours): Temp Pulse Resp BP Pulse Ox 97.3 F L 110 H 20 143/65 100 08/06/18 08:00 08/06/18 08:30 08/06/18 08:00 08/06/18 11:05 08/06/18 08:00 - Medications Medications: Current Medications Acetaminophen (Tylenol 325mg Tab) 650 mg PO Q6 PRN PRN Reason: Pain, severe (8-10) Last Admin: 08/04/18 17:16 Dose: 650 mg Amlodipine Besylate (Norvasc) 10 mg PO DAILY [facility] Last Admin: 08/06/18 11:06 Dose: 10 mg Calcitriol (Rocaltrol) 0.25 mcg PO DAILY [facility] Last Admin: 08/06/18 11:13 Dose: 0.25 mcg Clonidine HCl (Catapres) 0.1 mg PO Q12H [facility] Last Admin: 08/06/18 06:20 Dose: 0.1 mg Docusate Sodium (Colace) 100 mg PO BID [facility] Last Admin: 08/06/18 11:05 Dose: 100 mg Ferrous Sulfate (Feosol) 325 mg PO DAILY [facility] Last Admin: 08/06/18 11:05 Dose: 325 mg Finasteride (Proscar) 1 mg PO DAILY [facility] Last Admin: 08/06/18 11:04 Dose: 1 mg Furosemide (Lasix) 80 mg PO DAILY [facility] Last Admin: 08/06/18 11:05 Dose: 80 mg Losartan Potassium (Cozaar) 25 mg PO DAILY [facility] Last Admin: 08/06/18 11:12 Dose: 25 mg Oxycodone/Acetaminophen (Percocet 5/325 Mg Tab) 1 tab PO Q4H PRN PRN Reason: Pain, moderate (4-7) Stop: 08/08/18 12:26 Last Admin: 08/05/18 21:05 Dose: 1 tab Pantoprazole Sodium (Protonix Ec Tab) 20 mg PO DAILY [facility] Last Admin: 08/06/18 11:13 Dose: 20 mg Phenytoin Sodium (Dilantin) 100 mg PO TID [facility] Last Admin: 08/06/18 11:12 Dose: 100 mg Rosuvastatin Calcium (Crestor) 10 mg PO HS [facility] Last Admin: 08/05/18 21:04 Dose: 10 mg - Labs Labs: 08/06/18 06:30 08/06/18 06:30 PT 10.8 SECONDS (9.7-12.2) 08/05/18 14:36 INR 1.0 08/05/18 14:36 APTT 34 SECONDS (21-34) 08/05/18 14:36 - Constitutional Appears: No Acute Distress, Chronically Ill - Head Exam Head Exam: ATRAUMATIC, NORMAL INSPECTION - Eye Exam Eye Exam: EOMI, Normal appearance - Neck Exam Neck Exam: Normal Inspection. absent: Tenderness - Respiratory Exam Respiratory Exam: Clear to Ausculation Bilateral, NORMAL BREATHING PATTERN - Cardiovascular Exam Cardiovascular Exam: REGULAR RHYTHM, +S1 - GI/Abdominal Exam GI & Abdominal Exam: Soft. absent: Tenderness - Extremities Exam Extremities Exam: Normal Inspection. absent: Tenderness - Neurological Exam Neurological Exam: Awake, CN II-XII Intact - Skin Skin Exam: Dry, Warm Assessment and Plan (1) Hypertensive chronic kidney disease with stage 5 chronic kidney disease or end stage renal disease Status: Acute (2) Metabolic acidosis Status: Acute (3) Chronic anemia Status: Acute (4) End stage renal disease Status: Acute (5) Hyperkalemia Status: Acute - Assessment and Plan (Free Text) Plan: Same meds Dialysis TTS Will need AV access Will need outpt HD placement
--- NOTE | 2018-08-06 17:12 | CP.PCM.PN ---
Subjective - Date & Time of Evaluation Date of Evaluation: 08/06/18 Time of Evaluation: 07:00 - Subjective Subjective: VASCULAR SURGERY PROGRESS NOTE FOR DR. MANZO Patient seen and examined at bedside. He had dialysis yesterday via the Permacath. Yesterday post op there was some bleeding from Permacath site. Pressure dressing was applied. There was no more bleeding after that. Objective - Vital Signs/Intake and Output Vital Signs (last 24 hours): Temp Pulse Resp BP Pulse Ox 98.0 F 110 H 20 143/90 99 08/06/18 15:25 08/06/18 16:00 08/06/18 15:25 08/06/18 15:25 08/06/18 15:25 - Medications Medications: Current Medications Acetaminophen (Tylenol 325mg Tab) 650 mg PO Q6 PRN PRN Reason: Pain, severe (8-10) Last Admin: 08/04/18 17:16 Dose: 650 mg Amlodipine Besylate (Norvasc) 10 mg PO DAILY [facility] Last Admin: 08/06/18 11:06 Dose: 10 mg Calcitriol (Rocaltrol) 0.25 mcg PO DAILY [facility] Last Admin: 08/06/18 11:13 Dose: 0.25 mcg Clonidine HCl (Catapres) 0.1 mg PO Q12H [facility] Last Admin: 08/06/18 06:20 Dose: 0.1 mg Docusate Sodium (Colace) 100 mg PO BID [facility] Last Admin: 08/06/18 11:05 Dose: 100 mg Ferrous Sulfate (Feosol) 325 mg PO DAILY [facility] Last Admin: 08/06/18 11:05 Dose: 325 mg Finasteride (Proscar) 1 mg PO DAILY [facility] Last Admin: 08/06/18 11:04 Dose: 1 mg Furosemide (Lasix) 80 mg PO DAILY [facility] Last Admin: 08/06/18 11:05 Dose: 80 mg Losartan Potassium (Cozaar) 25 mg PO DAILY [facility] Last Admin: 08/06/18 11:12 Dose: 25 mg Oxycodone/Acetaminophen (Percocet 5/325 Mg Tab) 1 tab PO Q4H PRN PRN Reason: Pain, moderate (4-7) Stop: 08/08/18 12:26 Last Admin: 08/05/18 21:05 Dose: 1 tab Pantoprazole Sodium (Protonix Ec Tab) 20 mg PO DAILY [facility] Last Admin: 08/06/18 11:13 Dose: 20 mg Phenytoin Sodium (Dilantin) 100 mg PO TID [facility] Last Admin: 08/06/18 16:12 Dose: Not Given Rosuvastatin Calcium (Crestor) 10 mg PO HS [facility] Last Admin: 08/05/18 21:04 Dose: 10 mg - Labs Labs: 08/06/18 06:30 08/06/18 06:30 PT 10.8 SECONDS (9.7-12.2) 08/05/18 14:36 INR 1.0 08/05/18 14:36 APTT 34 SECONDS (21-34) 08/05/18 14:36 - Constitutional Appears: Non-toxic, No Acute Distress - Neck Exam Additional comments: Neck pressure dressing removed Right IJ Permacath in place, dressing clean/dry/intact - Respiratory Exam Respiratory Exam: NORMAL BREATHING PATTERN. absent: Respiratory Distress - Cardiovascular Exam Cardiovascular Exam: +S1, +S2 Assessment and Plan - Assessment and Plan (Free Text) Assessment: 73yo M with ESRD s/p Right IJ Permacath POD#1 - FU vein mapping - Plan for OR Thursday for AV Fistula - Discussed plan with Dr. Abhilash Knight PGY-4
--- NOTE | 2018-08-06 17:58 | CARD ---
APPROVED REPORT Date of service: 08/04/2018 EKG Measurement Heart [id number] <Conclusion> Normal sinus rhythm Left axis deviation Right bundle branch block Abnormal ECG
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
--- NOTE | 2018-08-07 06:43 | CP.PCM.PN ---
Subjective - Date & Time of Evaluation Date of Evaluation: 08/07/18 Time of Evaluation: 06:40 - Subjective Subjective: Vascular Surgery: Dr. Hung Pt seen and examined. No acute overnight events. Pt states he feels better this AM and the pain over his permacath site is much improved. He denies other complaints at this time. Denies nausea/vomiting, fevers/chills. Objective - Vital Signs/Intake and Output Vital Signs (last 24 hours): Temp Pulse Resp BP Pulse Ox 98.3 F 97 H 20 139/79 100 08/06/18 23:41 08/06/18 23:41 08/06/18 23:41 08/06/18 23:41 08/06/18 23:41 Intake and Output: 08/06/18 08/07/18 18:59 06:59 Intake Total 500 Output Total 0 Balance 500 - Medications Medications: Current Medications Acetaminophen (Tylenol 325mg Tab) 650 mg PO Q6 PRN PRN Reason: Pain, severe (8-10) Last Admin: 08/06/18 20:05 Dose: 650 mg Amlodipine Besylate (Norvasc) 10 mg PO DAILY [facility] Last Admin: 08/06/18 11:06 Dose: 10 mg Calcitriol (Rocaltrol) 0.25 mcg PO DAILY [facility] Last Admin: 08/06/18 11:13 Dose: 0.25 mcg Clonidine HCl (Catapres) 0.1 mg PO Q12H [facility] Last Admin: 08/07/18 05:18 Dose: 0.1 mg Docusate Sodium (Colace) 100 mg PO BID [facility] Last Admin: 08/06/18 17:14 Dose: 100 mg Ferrous Sulfate (Feosol) 325 mg PO DAILY [facility] Last Admin: 08/06/18 11:05 Dose: 325 mg Finasteride (Proscar) 1 mg PO DAILY [facility] Last Admin: 08/06/18 11:04 Dose: 1 mg Furosemide (Lasix) 80 mg PO DAILY [facility] Last Admin: 08/06/18 11:05 Dose: 80 mg Losartan Potassium (Cozaar) 25 mg PO DAILY [facility] Last Admin: 08/06/18 11:12 Dose: 25 mg Oxycodone/Acetaminophen (Percocet 5/325 Mg Tab) 1 tab PO Q4H PRN PRN Reason: Pain, moderate (4-7) Stop: 08/08/18 12:26 Last Admin: 08/05/18 21:05 Dose: 1 tab Pantoprazole Sodium (Protonix Ec Tab) 20 mg PO DAILY [facility] Last Admin: 08/06/18 11:13 Dose: 20 mg Phenytoin Sodium (Dilantin) 100 mg PO TID [facility] Last Admin: 08/06/18 17:14 Dose: 100 mg Rosuvastatin Calcium (Crestor) 10 mg PO HS [facility] Last Admin: 08/06/18 21:30 Dose: 10 mg - Labs Labs: 08/06/18 06:30 08/06/18 06:30 PT 10.8 SECONDS (9.7-12.2) 08/05/18 14:36 INR 1.0 08/05/18 14:36 APTT 34 SECONDS (21-34) 08/05/18 14:36 - Constitutional Appears: Well, No Acute Distress - Head Exam Head Exam: ATRAUMATIC, NORMOCEPHALIC - Eye Exam Eye Exam: Normal appearance - ENT Exam ENT Exam: Mucous Membranes Moist - Respiratory Exam Respiratory Exam: NORMAL BREATHING PATTERN - Cardiovascular Exam Cardiovascular Exam: Tachycardia - GI/Abdominal Exam GI & Abdominal Exam: Soft - Extremities Exam Extremities Exam: absent: Tenderness - Neurological Exam Neurological Exam: Alert, Awake, Oriented x3 - Skin Skin Exam: Dry, Warm Assessment and Plan - Assessment and Plan (Free Text) Assessment: 73M with ESRD on HD Plan: - plan for AVF on Thursday - medically optimize for OR - keep NPO past midnight thursday - d/w Dr. Abhilash Yip
[2018-08-07 08:02] LABS: BASO # 0.1 K/uL (0.0-0.2); BASO % 0.8 % (0.0-2.0); EOS # 0.4 K/uL (0.0-0.7); EOS % 5.4 % (0.0-4.0); HEMOGLOBIN 10.7 g/dL (12.0-18.0); LYMPH # 1.8 K/uL (1.0-4.3); LYMPH % 23.1 % (20.0-40.0); MEAN CELL VOLUME 85.3 fL (80.0-94.0); MEAN CORPUSCULAR HGB CONC 32.8 g/dL (33.0-37.0); MEAN PLATELET VOLUME 9.6 fL (7.2-11.7); MONO # 0.9 K/uL (0.0-0.8); NEUT # 4.6 K/uL (1.8-7.0); NEUT % 58.7 % (50.0-75.0); RBC 3.84 Mil/uL (4.40-5.90); RED CELL DISTRIBUTION WIDTH 15.3 % (11.5-14.5); WHITE BLOOD COUNT 7.8 K/uL (4.8-10.8)
[2018-08-07 08:15] LABS: ALB/GLOB RATIO 1.1 (1.0-2.1); CALCIUM 7.9 mg/dl (8.6-10.4)
[2018-08-07] MEDS: Pantoprazole 20 mg EC Tab PO SCH (09:34)
--- NOTE | 2018-08-07 09:43 | CP.PCM.PN ---
Subjective - Date & Time of Evaluation Date of Evaluation: 08/07/18 Time of Evaluation: 09:40 - Subjective Subjective: comfortable in bed bp better afebrile comfortable in chair states ate breakfast pain over rt iliac crest intermittent over last several days.no leg radiation ROS no chills fever no sob no chest pain no abd pain n/v/d no dysuria see above Objective - Vital Signs/Intake and Output Vital Signs (last 24 hours): Temp Pulse Resp BP Pulse Ox 98.8 F 84 20 164/90 H 100 08/07/18 07:49 08/07/18 07:58 08/07/18 07:49 08/07/18 07:49 08/07/18 07:49 Intake and Output: 08/07/18 08/07/18 06:59 18:59 Intake Total 500 Output Total 0 Balance 500 - Medications Medications: Current Medications Acetaminophen (Tylenol 325mg Tab) 650 mg PO Q6 PRN PRN Reason: Pain, severe (8-10) Last Admin: 08/06/18 20:05 Dose: 650 mg Amlodipine Besylate (Norvasc) 10 mg PO DAILY [facility] Last Admin: 08/06/18 11:06 Dose: 10 mg Calcitriol (Rocaltrol) 0.25 mcg PO DAILY [facility] Last Admin: 08/06/18 11:13 Dose: 0.25 mcg Clonidine HCl (Catapres) 0.1 mg PO Q12H [facility] Last Admin: 08/07/18 05:18 Dose: 0.1 mg Docusate Sodium (Colace) 100 mg PO BID [facility] Last Admin: 08/07/18 09:34 Dose: 100 mg Ferrous Sulfate (Feosol) 325 mg PO DAILY [facility] Last Admin: 08/07/18 09:34 Dose: 325 mg Finasteride (Proscar) 1 mg PO DAILY [facility] Last Admin: 08/06/18 11:04 Dose: 1 mg Furosemide (Lasix) 80 mg PO DAILY [facility] Last Admin: 08/06/18 11:05 Dose: 80 mg Losartan Potassium (Cozaar) 25 mg PO DAILY [facility] Last Admin: 08/06/18 11:12 Dose: 25 mg Oxycodone/Acetaminophen (Percocet 5/325 Mg Tab) 1 tab PO Q4H PRN PRN Reason: Pain, moderate (4-7) Stop: 12/02/18 12:26 Last Admin: 08/05/18 21:05 Dose: 1 tab Pantoprazole Sodium (Protonix Ec Tab) 20 mg PO DAILY [facility] Last Admin: 08/07/18 09:34 Dose: 20 mg Phenytoin Sodium (Dilantin) 100 mg PO TID [facility] Last Admin: 08/07/18 09:34 Dose: 100 mg Rosuvastatin Calcium (Crestor) 10 mg PO HS [facility] Last Admin: 08/06/18 21:30 Dose: 10 mg - Labs Labs: 08/07/18 07:41 08/07/18 07:41 PT 10.8 SECONDS (9.7-12.2) 08/05/18 14:36 INR 1.0 08/05/18 14:36 APTT 34 SECONDS (21-34) 08/05/18 14:36 - Constitutional Appears: Well, No Acute Distress, Chronically Ill - Head Exam Head Exam: NORMOCEPHALIC - ENT Exam ENT Exam: Mucous Membranes Moist - Respiratory Exam Respiratory Exam: Clear to Ausculation Bilateral, NORMAL BREATHING PATTERN - Cardiovascular Exam Cardiovascular Exam: REGULAR RHYTHM. absent: JVD - GI/Abdominal Exam GI & Abdominal Exam: Soft. absent: Distended, Tenderness - Extremities Exam Extremities Exam: absent: Calf Tenderness - Back Exam Back Exam: absent: CVA tenderness (L), CVA tenderness (R) Additional comments: no ls spine tenderness tender over muscles rt iliac crest - Psychiatric Exam Psychiatric exam: Flat Affect - Skin Skin Exam: Dry Assessment and Plan (1) End stage renal disease Status: Acute (2) Hyperkalemia Status: Acute (3) Hypertensive chronic kidney disease with stage 5 chronic kidney disease or end stage renal disease Status: Acute (4) PAD (peripheral artery disease) Status: Acute - Assessment and Plan (Free Text) Plan: dialysis today obseve re back pain access surgery next week await outpatient dialysis placement
--- NOTE | 2018-08-08 08:39 | CP.PCM.PN ---
Subjective - Date & Time of Evaluation Date of Evaluation: 08/08/18 Time of Evaluation: 07:40 - Subjective Subjective: Vascular Surgery Pt seen and examined. No acute overnight events. Feels good today, ready for his surgery tomorrow. Answered his questions about surgery. Denies nausea/vomiting, fevers/chills. Objective - Vital Signs/Intake and Output Vital Signs (last 24 hours): Temp Pulse Resp BP Pulse Ox 98.1 F 18 L 20 131/77 100 08/08/18 07:19 08/08/18 07:19 08/08/18 07:19 08/08/18 07:19 08/08/18 07:19 Intake and Output: 08/08/18 08/08/18 06:59 18:59 Intake Total 490 Output Total 800 Balance -310 - Medications Medications: Current Medications Acetaminophen (Tylenol 325mg Tab) 650 mg PO Q6 PRN PRN Reason: Pain, severe (8-10) Last Admin: 08/08/18 05:34 Dose: 650 mg Amlodipine Besylate (Norvasc) 10 mg PO DAILY [facility] Last Admin: 08/07/18 13:48 Dose: 10 mg Calcitriol (Rocaltrol) 0.25 mcg PO DAILY [facility] Last Admin: 08/07/18 10:13 Dose: Not Given Clonidine HCl (Catapres) 0.1 mg PO Q12H [facility] Last Admin: 08/08/18 05:31 Dose: 0.1 mg Docusate Sodium (Colace) 100 mg PO BID [facility] Last Admin: 08/07/18 17:41 Dose: 100 mg Ferrous Sulfate (Feosol) 325 mg PO DAILY [facility] Last Admin: 08/07/18 09:34 Dose: 325 mg Finasteride (Proscar) 1 mg PO DAILY [facility] Last Admin: 08/07/18 10:13 Dose: Not Given Furosemide (Lasix) 80 mg PO DAILY [facility] Last Admin: 08/07/18 10:13 Dose: Not Given Cefepime HCl 0.5 gm/ Dextrose 50 mls @ 100 mls/hr IVPB Q24H [facility]; Protocol Last Admin: 08/07/18 17:41 Dose: 100 mls/hr Losartan Potassium (Cozaar) 25 mg PO DAILY [facility] Last Admin: 08/07/18 10:13 Dose: Not Given Oxycodone/Acetaminophen (Percocet 5/325 Mg Tab) 1 tab PO Q4H PRN PRN Reason: Pain, moderate (4-7) Stop: 08/08/18 12:26 Last Admin: 08/05/18 21:05 Dose: 1 tab Pantoprazole Sodium (Protonix Ec Tab) 20 mg PO DAILY [facility] Last Admin: 08/07/18 09:34 Dose: 20 mg Phenytoin Sodium (Dilantin) 100 mg PO TID [facility] Last Admin: 08/07/18 17:41 Dose: 100 mg Rosuvastatin Calcium (Crestor) 10 mg PO HS [facility] Last Admin: 08/07/18 21:13 Dose: 10 mg - Labs Labs: 08/07/18 07:41 08/07/18 07:41 PT 10.8 SECONDS (9.7-12.2) 08/05/18 14:36 INR 1.0 08/05/18 14:36 APTT 34 SECONDS (21-34) 08/05/18 14:36 - Constitutional Appears: Non-toxic, No Acute Distress - Head Exam Head Exam: ATRAUMATIC, NORMOCEPHALIC - Eye Exam Eye Exam: EOMI. absent: Scleral icterus - Respiratory Exam Respiratory Exam: NORMAL BREATHING PATTERN. absent: Respiratory Distress - Cardiovascular Exam Additional comments: permacath in place and functioning - GI/Abdominal Exam GI & Abdominal Exam: Soft. absent: Distended, Firm, Guarding, Rigid, Tenderness - Neurological Exam Neurological Exam: Alert, Awake, Oriented x3 - Skin Skin Exam: Dry, Warm Assessment and Plan - Assessment and Plan (Free Text) Assessment: 73M with ESRD on HD Plan: - plan for AVF on Thursday - medically optimize for OR - keep NPO past midnight thursday D/W Dr. Abhilash Renteria PGY4
[2018-08-08] MEDS: Pantoprazole 20 mg EC Tab PO SCH (09:51)
[2018-08-08 14:09] LABS: BASO # 0.1 K/uL (0.0-0.2); BASO % 1.2 % (0.0-2.0); EOS # 0.5 K/uL (0.0-0.7); EOS % 6.3 % (0.0-4.0); LYMPH # 1.7 K/uL (1.0-4.3); LYMPH % 20.6 % (20.0-40.0); MEAN CELL VOLUME 84.8 fL (80.0-94.0); MEAN CORPUSCULAR HEMOGLOBIN 27.8 pg (27.0-31.0); MEAN CORPUSCULAR HGB CONC 32.8 g/dL (33.0-37.0); MONO % 12.2 % (0.0-10.0); NEUT # 5.1 K/uL (1.8-7.0); NEUT % 59.7 % (50.0-75.0); RBC 3.96 Mil/uL (4.40-5.90); RED CELL DISTRIBUTION WIDTH 15.2 % (11.5-14.5); WHITE BLOOD COUNT 8.5 K/uL (4.8-10.8)
[2018-08-08 14:34] LABS: ALB/GLOB RATIO 1.2 (1.0-2.1); ALBUMIN 3.4 g/dL (3.5-5.0); CALCIUM 8.1 mg/dl (8.6-10.4)
[2018-08-09] MEDS ORDERED: HEPARIN-NS 5,000 UNITS/500 ML 5,000 UNIT/500 ML BAG IV ONE (09:04)
[2018-08-09] MEDS ORDERED: Propofol 10 mg/ml Inj (20 ML) ONE (10:13)
[2018-08-09] MEDS ORDERED: Esmolol 100 mg/10ml Inj IV ONE (12:20)
[2018-08-09] MEDS ORDERED: HYDROmorphone 0.5 mg/0.5 ml ISec IVP PRN (12:25)
--- NOTE | 2018-08-09 12:31 | PCM.SURG1 ---
Surgeon's Initial Post Op Note - Surgeon's Notes Surgeon: Dr. Hung Cashier Clerk: PGY2 Type of Anesthesia: General LMA Pre-Operative Diagnosis: End Stage Renal Disease Operative Findings: Small veins pre-op. Found basilic vein with US while pt under anesthesia with bifurcation. Used basilic vein and brachial artery for cimeno fistula. Dopplerable radial and ulnar arteries post anastamosis. for details see op note. Post-Operative Diagnosis: End stage renal disease Operation Performed: Left Upper extremity AV Fistula w/ [place] veins Specimen/Specimens Removed: none Estimated Blood Loss: EBL {In ML}: 20 Drains Used: No Drains Date of Surgery/Procedure: 08/09/18 Time of Surgery/Procedure: 12:32
[2018-08-09] MEDS ORDERED: HYDROmorphone 0.5 mg/0.5 ml ISec ONE (12:34)
--- NOTE | 2018-08-09 12:35 | CP.PCM.PN ---
Subjective - Date & Time of Evaluation Date of Evaluation: 08/09/18 Time of Evaluation: 12:33 - Subjective Subjective: stable dialysis 08/07- UF 1000ml HTN still elevated For AV access surgery now Feels better overall Objective - Vital Signs/Intake and Output Vital Signs (last 24 hours): Temp Pulse Resp BP Pulse Ox 98 F 73 20 169/80 H 99 08/09/18 08:00 08/09/18 08:15 08/09/18 08:00 08/09/18 08:00 08/09/18 08:00 Intake and Output: 08/09/18 08/09/18 06:59 18:59 Intake Total 150 Balance 150 - Medications Medications: Current Medications Acetaminophen (Tylenol 325mg Tab) 650 mg PO Q6 PRN PRN Reason: Pain, severe (8-10) Last Admin: 08/08/18 15:37 Dose: 650 mg Amlodipine Besylate (Norvasc) 10 mg PO DAILY [facility] Last Admin: 08/08/18 09:51 Dose: 10 mg Calcitriol (Rocaltrol) 0.25 mcg PO DAILY [facility] Last Admin: 08/08/18 09:51 Dose: 0.25 mcg Clonidine HCl (Catapres) 0.1 mg PO Q12H [facility] Last Admin: 08/09/18 07:33 Dose: 0.1 mg Docusate Sodium (Colace) 100 mg PO BID [facility] Last Admin: 08/09/18 09:47 Dose: Not Given Ferrous Sulfate (Feosol) 325 mg PO DAILY [facility] Last Admin: 08/08/18 09:51 Dose: 325 mg Finasteride (Proscar) 5 mg PO DAILY [facility] Last Admin: 08/08/18 11:34 Dose: 5 mg Furosemide (Lasix) 80 mg PO DAILY [facility] Last Admin: 08/08/18 09:51 Dose: 80 mg Hydromorphone HCl (Dilaudid) 0.5 mg IVP Q15M PRN PRN Reason: Pain, severe (8-10) Cefepime HCl 0.5 gm/ Dextrose 50 mls @ 100 mls/hr IVPB Q24H [facility]; Protocol Last Admin: 08/08/18 17:25 Dose: 100 mls/hr Losartan Potassium (Cozaar) 25 mg PO DAILY [facility] Last Admin: 08/08/18 09:51 Dose: 25 mg Ondansetron HCl (Zofran Inj) 4 mg IVP ONCE PRN PRN Reason: Nausea/Vomiting Stop: 08/09/18 14:26 Pantoprazole Sodium (Protonix Ec Tab) 20 mg PO DAILY [facility] Last Admin: 08/08/18 09:51 Dose: 20 mg Phenytoin Sodium (Dilantin) 100 mg PO TID [facility] Last Admin: 08/09/18 09:48 Dose: Not Given Rosuvastatin Calcium (Crestor) 10 mg PO HS [facility] Last Admin: 08/08/18 21:28 Dose: 10 mg - Labs Labs: 08/08/18 13:59 08/08/18 13:59 PT 10.8 SECONDS (9.7-12.2) 08/05/18 14:36 INR 1.0 08/05/18 14:36 APTT 34 SECONDS (21-34) 08/05/18 14:36 - Constitutional Appears: No Acute Distress, Chronically Ill - Head Exam Head Exam: ATRAUMATIC, NORMAL INSPECTION - Eye Exam Eye Exam: EOMI, Normal appearance - Neck Exam Neck Exam: Normal Inspection. absent: Tenderness - Respiratory Exam Respiratory Exam: Clear to Ausculation Bilateral, NORMAL BREATHING PATTERN - Cardiovascular Exam Cardiovascular Exam: REGULAR RHYTHM, +S1 - GI/Abdominal Exam GI & Abdominal Exam: Soft. absent: Tenderness - Extremities Exam Extremities Exam: Normal Inspection. absent: Tenderness - Neurological Exam Neurological Exam: Awake, CN II-XII Intact - Skin Skin Exam: Dry, Warm Assessment and Plan (1) Hypertensive chronic kidney disease with stage 5 chronic kidney disease or end stage renal disease Status: Acute (2) Metabolic acidosis Status: Acute (3) Chronic anemia Status: Acute (4) End stage renal disease Status: Acute (5) Hyperkalemia Status: Acute - Assessment and Plan (Free Text) Plan: Dialysis TTS Adjust BP meds AV F palcement Needs outpt HD placement
--- NOTE | 2018-08-09 13:22 | HP ---
HISTORY OF PRESENT ILLNESS: The patient is a 73-year-old man with weakness, tiredness, who complains of having hypertension, renal insufficiency, admitted to the hospital complaining of weakness, fatigue, tiredness. The patient has renal insufficiency. The patient has seen a signaling design engineer, who advised dialysis. PHYSICAL EXAMINATION: GENERAL: The patient is awake, alert, and oriented. VITAL SIGNS: Temperature 98, pulse 90. HEENT: Within normal limits. NECK: Supple. CHEST: Symmetrical. HEART: Regular. ABDOMEN: Soft. EXTREMITIES: No edema. ASSESSMENT AND PLAN: Renal failure, needs supportive care. Arthur Sin MD
--- NOTE | 2018-08-09 13:27 | CP.PCM.PN ---
Subjective - Date & Time of Evaluation Date of Evaluation: 08/09/18 Time of Evaluation: 07:35 - Subjective Subjective: Resident Progress Note for Dr. Sin Patient was seen and examined at bedside. No acute evernts reported overnight. He denies having any pain. Patient is aware of NPO status for AVF procedure later today. Patient denies fever, chills, chest pain, shortness of breath, nausea, vomiting, or diarrhea. Objective - Vital Signs/Intake and Output Vital Signs (last 24 hours): Temp Pulse Resp BP Pulse Ox 98 F 95 H 14 138/77 100 08/09/18 12:23 08/09/18 13:00 08/09/18 13:00 08/09/18 13:00 08/09/18 13:00 Intake and Output: 08/09/18 08/09/18 06:59 18:59 Intake Total 150 Balance 150 - Medications Medications: Current Medications Acetaminophen (Tylenol 325mg Tab) 650 mg PO Q6 PRN PRN Reason: Pain, severe (8-10) Last Admin: 08/08/18 15:37 Dose: 650 mg Amlodipine Besylate (Norvasc) 10 mg PO DAILY [facility] Last Admin: 08/08/18 09:51 Dose: 10 mg Calcitriol (Rocaltrol) 0.25 mcg PO DAILY [facility] Last Admin: 08/08/18 09:51 Dose: 0.25 mcg Clonidine HCl (Catapres) 0.1 mg PO Q12H [facility] Last Admin: 08/09/18 07:33 Dose: 0.1 mg Docusate Sodium (Colace) 100 mg PO BID [facility] Last Admin: 08/09/18 09:47 Dose: Not Given Ferrous Sulfate (Feosol) 325 mg PO DAILY [facility] Last Admin: 08/08/18 09:51 Dose: 325 mg Finasteride (Proscar) 5 mg PO DAILY [facility] Last Admin: 08/08/18 11:34 Dose: 5 mg Furosemide (Lasix) 80 mg PO DAILY [facility] Last Admin: 08/08/18 09:51 Dose: 80 mg Heparin Sodium (Porcine) (Heparin) 5,000 units SC Q8 [facility] Hydromorphone HCl (Dilaudid) 0.5 mg IVP Q15M PRN PRN Reason: Pain, severe (8-10) Last Admin: 12/03/18 12:34 Dose: 0.5 mg Cefepime HCl 0.5 gm/ Dextrose 50 mls @ 100 mls/hr IVPB Q24H [facility]; Protocol Last Admin: 08/08/18 17:25 Dose: 100 mls/hr Losartan Potassium (Cozaar) 100 mg PO DAILY [facility] Ondansetron HCl (Zofran Inj) 4 mg IVP ONCE PRN PRN Reason: Nausea/Vomiting Stop: 08/09/18 14:26 Pantoprazole Sodium (Protonix Ec Tab) 20 mg PO DAILY [facility] Last Admin: 08/08/18 09:51 Dose: 20 mg Phenytoin Sodium (Dilantin) 100 mg PO TID [facility] Last Admin: 08/09/18 09:48 Dose: Not Given Rosuvastatin Calcium (Crestor) 10 mg PO HS [facility] Last Admin: 08/08/18 21:28 Dose: 10 mg - Labs Labs: 08/08/18 13:59 08/08/18 13:59 PT 10.8 SECONDS (9.7-12.2) 08/05/18 14:36 INR 1.0 08/05/18 14:36 APTT 34 SECONDS (21-34) 08/05/18 14:36 - Additional Findings Additional findings: - Constitutional Appears: Well, Non-toxic - Head Exam Head Exam: ATRAUMATIC, NORMAL INSPECTION - Eye Exam Eye Exam: EOMI, Normal appearance, PERRL Pupil Exam: PERRL - ENT Exam ENT Exam: Mucous Membranes Moist Additional comments: permacath clean dry and intact in place with no bleeding - Neck Exam Neck Exam: Full ROM - Respiratory Exam Respiratory Exam: Clear to Ausculation Bilateral, NORMAL BREATHING PATTERN. absent: Rales, Rhonchi, Wheezes - Cardiovascular Exam Cardiovascular Exam: REGULAR RHYTHM, +S1, +S2 - GI/Abdominal Exam GI & Abdominal Exam: Soft, Normal Bowel Sounds - Extremities Exam Extremities Exam: Full ROM. absent: Calf Tenderness - Back Exam Back Exam: NORMAL INSPECTION. absent: CVA tenderness (L), CVA tenderness (R), paraspinal tenderness - Neurological Exam Neurological Exam: Alert, Awake, Oriented x3 - Skin Skin Exam: Warm Assessment and Plan - Assessment and Plan (Free Text) Assessment: Chronic Kidney Disease - stage 5 - Nephrology Consult: Dr. Prince -vein mapping 08/05; f/u results -c/w dialysis as per nephrology - Vascular Surgery: Dr. Hung -for permacath placement 08/05; placed successfully -AVF creation procedure today - BUN/Cr: 42/3.1 today - Chest Xray: No active disease. No significant interval change compared to the prior examination(s). UTI - Urine culture shows positive Klebsiella Pneumoniae - Cefepime 500mg Q24hr - Afebrile, no leukocytosis HTN urgency/labile BP - Medications: * Furosemide 80mg daily * Clonidine 0.1mg q12h * amlodipine 10mg daily * losartan 25mg daily Hyperkalemia;resolved - secondary to ESRD - K 4.7 today - EKG: NSR; old bundle branch block (per PMD Dr. 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 Walker --> help appreciated - Medications: * ASA 81mg po daily - held for surgery * Plavix 75mg po daily - held for surgery * Crestor 10mg po HS History of HLD - Crestor 10mg po HS History of Seizure Disorder - Continue home medication: Phenytoin 100mg po tid History of Chronic Anemia - Continue Ferrous Sulfate 325mg daily - Colace 100mg bid History of GERD - Protonix 20mg daily History of BPH - Continue Finasteride 5mg daily Prophylaxis - VTE prophylaxis - held for surgery - SCDs - Colace 100mg bid Case discussed with attending Dr. Sin
[2018-08-09] MEDS: Pantoprazole 20 mg EC Tab PO SCH (13:47)
[2018-08-09 14:22] LABS: BASO # 0.1 K/uL (0.0-0.2); BASO % 0.9 % (0.0-2.0); EOS # 0.4 K/uL (0.0-0.7); EOS % 5.2 % (0.0-4.0); HEMOGLOBIN 10.3 g/dL (12.0-18.0); LYMPH # 1.7 K/uL (1.0-4.3); LYMPH % 21.9 % (20.0-40.0); MEAN CELL VOLUME 85.3 fL (80.0-94.0); MEAN CORPUSCULAR HEMOGLOBIN 26.7 pg (27.0-31.0); MEAN CORPUSCULAR HGB CONC 31.4 g/dL (33.0-37.0); MEAN PLATELET VOLUME 9.1 fL (7.2-11.7); MONO # 0.9 K/uL (0.0-0.8); NEUT # 4.7 K/uL (1.8-7.0); RBC 3.84 Mil/uL (4.40-5.90); WHITE BLOOD COUNT 7.9 K/uL (4.8-10.8)
[2018-08-09 17:27] VITALS: RESP 20
--- NOTE | 2018-08-09 22:41 | OP ---
PROCEDURE DATE: 08/09/2018 PREOPERATIVE DIAGNOSIS: Renal failure. POSTOPERATIVE DIAGNOSIS: Renal failure. PROCEDURE CARRIED OUT: Brachiobasilic fistula, left elbow. SURGEON: Sami Hung Jr., MD [facility] ATTENDANT: Brenton Long DO ANESTHESIOLOGIST: Dr. Stack. INDICATIONS: The patient is an elderly man with renal insufficiency, presently dialyzed through a catheter placed last week. OPERATIVE FINDINGS: Preoperative vein mapping did not reveal any adequate veins in the arms to be used for dialysis. However, our immediate preoperative vein mapping, which was carried out in the operating room, showed that there was a fairly good basilic vein. After vasodilatation with general anesthesia, this became even more noticeable. A fistula was created using loupe magnification and heparin anticoagulation between the brachial artery and the basilic vein at the elbow. At the end of the procedure, there were good Doppler signals in the hand, but these were somewhat diminished to begin with, but they were still about the same. There was excellent flow through the fistula. DESCRIPTION OF PROCEDURE: The patient was given general anesthesia and intravenous antibiotics. Venodyne boots were applied. Ultrasound was used to localize the veins and arteries. An end-to-side fistula was then created using loupe magnification and heparin anticoagulation. After this had been carried out, we then checked again the flow of the hand, which was adequate. We closed the wound with Monocryl and nylon sutures on the skin. Blood loss for the procedure was less than 20 mL. Operation carried out was brachiobasilic fistula, left elbow. It is anticipated that this will require mobilization in the future. Sami Hung Jr., MD cc: Dr. Sin
--- NOTE | 2018-08-10 07:36 | CP.PCM.PN ---
Subjective - Date & Time of Evaluation Date of Evaluation: 08/10/18 Time of Evaluation: 08:00 - Subjective Subjective: Medicine Progress Note for Dr. Sin: Patient was seen and examined at bedside in the AM. Patient states he is feeling well. Patient denies chest pain, shortness of breath, headache, dizziness, lightheadedness, nausea, vomiting, diarrhea, constipation, dysuria, fever or chills. Objective - Vital Signs/Intake and Output Vital Signs (last 24 hours): Temp Pulse Resp BP Pulse Ox 97.6 F 74 20 127/71 100 08/09/18 23:15 08/10/18 00:42 08/09/18 23:15 08/09/18 23:15 08/09/18 23:15 Intake and Output: 08/10/18 08/10/18 06:59 18:59 Intake Total 550 Balance 550 - Medications Medications: Current Medications Acetaminophen (Tylenol 325mg Tab) 650 mg PO Q6 PRN PRN Reason: Pain, severe (8-10) Last Admin: 08/09/18 21:43 Dose: 650 mg Amlodipine Besylate (Norvasc) 10 mg PO DAILY [facility] Last Admin: 08/09/18 13:51 Dose: 10 mg Calcitriol (Rocaltrol) 0.25 mcg PO DAILY [facility] Last Admin: 08/09/18 13:50 Dose: 0.25 mcg Clonidine HCl (Catapres) 0.1 mg PO Q12H [facility] Last Admin: 08/10/18 07:30 Dose: 0.1 mg Docusate Sodium (Colace) 100 mg PO BID [facility] Last Admin: 08/09/18 17:49 Dose: 100 mg Ferrous Sulfate (Feosol) 325 mg PO DAILY [facility] Last Admin: 08/09/18 13:50 Dose: 325 mg Finasteride (Proscar) 5 mg PO DAILY [facility] Last Admin: 08/09/18 13:52 Dose: 5 mg Furosemide (Lasix) 80 mg PO DAILY [facility] Last Admin: 08/09/18 13:48 Dose: 80 mg Heparin Sodium (Porcine) (Heparin) 5,000 units SC Q8 [facility] Hydromorphone HCl (Dilaudid) 0.5 mg IVP Q15M PRN PRN Reason: Pain, severe (8-10) Last Admin: 08/09/18 12:34 Dose: 0.5 mg Cefepime HCl 0.5 gm/ Dextrose 50 mls @ 100 mls/hr IVPB Q24H [facility]; Protocol Last Admin: 08/09/18 17:49 Dose: 100 mls/hr Losartan Potassium (Cozaar) 100 mg PO DAILY [facility] Pantoprazole Sodium (Protonix Ec Tab) 20 mg PO DAILY [facility] Last Admin: 08/09/18 13:47 Dose: 20 mg Phenytoin Sodium (Dilantin) 100 mg PO TID [facility] Last Admin: 08/09/18 17:49 Dose: 100 mg Rosuvastatin Calcium (Crestor) 10 mg PO HS [facility] Last Admin: 08/09/18 21:43 Dose: 10 mg - Labs Labs: 08/09/18 14:12 08/09/18 14:12 PT 10.8 SECONDS (9.7-12.2) 08/05/18 14:36 INR 1.0 08/05/18 14:36 APTT 34 SECONDS (21-34) 08/05/18 14:36 - Constitutional Appears: No Acute Distress - Head Exam Head Exam: ATRAUMATIC, NORMAL INSPECTION - Eye Exam Eye Exam: EOMI, Normal appearance - ENT Exam ENT Exam: Mucous Membranes Moist - Respiratory Exam Respiratory Exam: Clear to Ausculation Bilateral, NORMAL BREATHING PATTERN - Cardiovascular Exam Cardiovascular Exam: REGULAR RHYTHM, +S1, +S2 Additional comments: permacath - GI/Abdominal Exam GI & Abdominal Exam: Soft, Normal Bowel Sounds. absent: Tenderness - Extremities Exam Extremities Exam: Normal Inspection Additional comments: AV fistula left arm - site clean dressing, dry and intact. Good palpable thrill - Neurological Exam Neurological Exam: Alert, Awake, Oriented x3 - Psychiatric Exam Psychiatric exam: Normal Affect - Skin Skin Exam: Normal Color Assessment and Plan - Assessment and Plan (Free Text) Assessment: Chronic Kidney Disease - stage 5 - Nephrology Consult: Dr. Prince -vein mapping 08/05; f/u results -c/w dialysis as per nephrology - Vascular Surgery: Dr. Hung - permacath placement 08/05; placed successfully - s/p AVF left arm 08/09/18 - BUN/Cr: 42/3.1 today - Chest Xray: No active disease. No significant interval change compared to the prior examination(s). UTI - Urine culture shows positive Klebsiella Pneumoniae - Cefepime 500mg Q24hr - completed course - Afebrile, no leukocytosis HTN urgency/labile BP - Medications: * Furosemide 80mg daily * Clonidine 0.1mg q12h * amlodipine 10mg daily * losartan 25mg daily Hyperkalemia;resolved - secondary to ESRD - K 4.7 today - EKG: NSR; old bundle branch block (per PMD Dr. Sin) - Kayexalte 30gm given once Metabolic Acidosis;resolved - secondary to ESRD - anion gap of 12 History of CAD - Patient had a AAA repair 02/2017 - [employer] Dr. Walker --> help appreciated - Medications: * ASA 81mg po daily - held for surgery * Plavix 75mg po daily - held for surgery * Crestor 10mg po HS History of HLD - Crestor 10mg po HS History of Seizure Disorder - Continue home medication: Phenytoin 100mg po tid History of Chronic Anemia - Continue Ferrous Sulfate 325mg daily - Colace 100mg bid History of GERD - Protonix 20mg daily History of BPH - Continue Finasteride 5mg daily Prophylaxis - VTE prophylaxis - held for surgery - SCDs - Colace 100mg bid Disposition: Patient discharged to dialysis center 08/10/18. Follow up with Dr. Hung in clinic in 1 week upon discharge. Continue to use permacath for HD until AVF matures. Case discussed with Dr. Merrick Robles PGY-2
--- NOTE | 2018-08-10 08:29 | CP.PCM.PN ---
Subjective - Date & Time of Evaluation Date of Evaluation: 08/10/18 Time of Evaluation: 06:25 - Subjective Subjective: Surgery Progress note. Dr. Hung Pt seen and examined at bedside. No acute events overnight. No fevers or chills. Pain well controlled. Good thrill palpable. Objective - Vital Signs/Intake and Output Vital Signs (last 24 hours): Temp Pulse Resp BP Pulse Ox 97.4 F L 87 20 152/89 H 100 08/10/18 07:10 08/10/18 07:53 08/10/18 07:10 08/10/18 07:10 08/10/18 07:10 Intake and Output: 08/10/18 08/10/18 06:59 18:59 Intake Total 550 200 Output Total 700 Balance 550 -500 - Medications Medications: Current Medications Acetaminophen (Tylenol 325mg Tab) 650 mg PO Q6 PRN PRN Reason: Pain, severe (8-10) Last Admin: 08/09/18 21:43 Dose: 650 mg Amlodipine Besylate (Norvasc) 10 mg PO DAILY [facility] Last Admin: 08/09/18 13:51 Dose: 10 mg Calcitriol (Rocaltrol) 0.25 mcg PO DAILY [facility] Last Admin: 08/09/18 13:50 Dose: 0.25 mcg Clonidine HCl (Catapres) 0.1 mg PO Q12H [facility] Last Admin: 08/10/18 07:30 Dose: 0.1 mg Docusate Sodium (Colace) 100 mg PO BID [facility] Last Admin: 08/09/18 17:49 Dose: 100 mg Ferrous Sulfate (Feosol) 325 mg PO DAILY [facility] Last Admin: 08/09/18 13:50 Dose: 325 mg Finasteride (Proscar) 5 mg PO DAILY [facility] Last Admin: 08/09/18 13:52 Dose: 5 mg Furosemide (Lasix) 80 mg PO DAILY [facility] Last Admin: 08/09/18 13:48 Dose: 80 mg Heparin Sodium (Porcine) (Heparin) 5,000 units SC Q8 [facility] Hydromorphone HCl (Dilaudid) 0.5 mg IVP Q15M PRN PRN Reason: Pain, severe (8-10) Last Admin: 08/09/18 12:34 Dose: 0.5 mg Cefepime HCl 0.5 gm/ Dextrose 50 mls @ 100 mls/hr IVPB Q24H [facility]; Protocol Last Admin: 08/09/18 17:49 Dose: 100 mls/hr Losartan Potassium (Cozaar) 100 mg PO DAILY [facility] Pantoprazole Sodium (Protonix Ec Tab) 20 mg PO DAILY [facility] Last Admin: 08/09/18 13:47 Dose: 20 mg Phenytoin Sodium (Dilantin) 100 mg PO TID [facility] Last Admin: 08/09/18 17:49 Dose: 100 mg Rosuvastatin Calcium (Crestor) 10 mg PO HS [facility] Last Admin: 08/09/18 21:43 Dose: 10 mg - Labs Labs: 08/09/18 14:12 08/09/18 14:12 PT 10.8 SECONDS (9.7-12.2) 08/05/18 14:36 INR 1.0 08/05/18 14:36 APTT 34 SECONDS (21-34) 08/05/18 14:36 - Constitutional Appears: Well, Non-toxic, No Acute Distress - Head Exam Head Exam: ATRAUMATIC, NORMAL INSPECTION, NORMOCEPHALIC - Eye Exam Eye Exam: EOMI, Normal appearance - ENT Exam ENT Exam: Mucous Membranes Moist - Respiratory Exam Respiratory Exam: NORMAL BREATHING PATTERN. absent: Accessory Muscle Use, Respiratory Distress - Cardiovascular Exam Cardiovascular Exam: absent: JVD - GI/Abdominal Exam GI & Abdominal Exam: Soft. absent: Distended, Firm, Guarding, Rigid, Tenderness, Rebound - Extremities Exam Extremities Exam: Normal Inspection Additional comments: Left AVF site clean dressing, dry and intact. Good palpable thrill - Neurological Exam Neurological Exam: Alert, Awake, Oriented x3 - Psychiatric Exam Psychiatric exam: Normal Affect, Normal Mood - Skin Skin Exam: Dry, Intact, Normal Color, Warm Assessment and Plan - Assessment and Plan (Free Text) Assessment: 73yo M with ESRD on HD. S/p Left brachiobasilic AVF POD 1 Plan: - Follow up with Dr. Hung in clinic in 1 week upon discharge - Use permacath for HD until AVF matures - No further surgical intervention warranted at this time Further Recs as per Dr. Abhilash Mckeon PGY2 Surgery
[2018-08-10] MEDS: Pantoprazole 20 mg EC Tab PO SCH (09:48)
--- NOTE | 2018-08-10 12:23 | CP.PCM.PN ---
Subjective - Date & Time of Evaluation Date of Evaluation: 08/10/18 Time of Evaluation: 12:22 - Subjective Subjective: s/p lt mitch seen in HD denies any pain n/v/d/sob/dizziness/cough/cp/rash/headache Objective - Vital Signs/Intake and Output Vital Signs (last 24 hours): Temp Pulse Resp BP Pulse Ox 97.4 F L 87 20 152/89 H 100 08/10/18 07:10 08/10/18 07:53 08/10/18 07:10 08/10/18 09:48 08/10/18 07:10 Intake and Output: 08/10/18 08/10/18 06:59 18:59 Intake Total 550 200 Output Total 700 Balance 550 -500 - Medications Medications: Current Medications Acetaminophen (Tylenol 325mg Tab) 650 mg PO Q6 PRN PRN Reason: Pain, severe (8-10) Last Admin: 08/09/18 21:43 Dose: 650 mg Amlodipine Besylate (Norvasc) 10 mg PO DAILY [facility] Last Admin: 08/10/18 10:49 Dose: Not Given Calcitriol (Rocaltrol) 0.25 mcg PO DAILY [facility] Last Admin: 08/10/18 09:48 Dose: 0.25 mcg Clonidine HCl (Catapres) 0.1 mg PO Q12H [facility] Last Admin: 08/10/18 07:30 Dose: 0.1 mg Docusate Sodium (Colace) 100 mg PO BID [facility] Last Admin: 08/10/18 09:48 Dose: 100 mg Ferrous Sulfate (Feosol) 325 mg PO DAILY [facility] Last Admin: 08/10/18 09:48 Dose: 325 mg Finasteride (Proscar) 5 mg PO DAILY [facility] Last Admin: 08/10/18 10:29 Dose: Not Given Furosemide (Lasix) 80 mg PO DAILY [facility] Last Admin: 08/10/18 09:48 Dose: 80 mg Heparin Sodium (Porcine) (Heparin) 5,000 units SC Q8 [facility] Last Admin: 08/10/18 09:49 Dose: 5,000 units Hydromorphone HCl (Dilaudid) 0.5 mg IVP Q15M PRN PRN Reason: Pain, severe (8-10) Last Admin: 08/09/18 12:34 Dose: 0.5 mg Cefepime HCl 0.5 gm/ Dextrose 50 mls @ 100 mls/hr IVPB Q24H [facility]; Protocol Last Admin: 08/09/18 17:49 Dose: 100 mls/hr Losartan Potassium (Cozaar) 100 mg PO DAILY [facility] Last Admin: 08/10/18 10:49 Dose: Not Given Pantoprazole Sodium (Protonix Ec Tab) 20 mg PO DAILY [facility] Last Admin: 08/10/18 09:48 Dose: 20 mg Phenytoin Sodium (Dilantin) 100 mg PO TID [facility] Last Admin: 08/10/18 09:48 Dose: 100 mg Rosuvastatin Calcium (Crestor) 10 mg PO HS [facility] Last Admin: 08/09/18 21:43 Dose: 10 mg - Labs Labs: 08/09/18 14:12 08/09/18 14:12 PT 10.8 SECONDS (9.7-12.2) 08/05/18 14:36 INR 1.0 08/05/18 14:36 APTT 34 SECONDS (21-34) 08/05/18 14:36 - Constitutional Appears: Non-toxic, No Acute Distress - Head Exam Head Exam: NORMAL INSPECTION, NORMOCEPHALIC - Eye Exam Eye Exam: Normal appearance, PERRL - ENT Exam ENT Exam: Mucous Membranes Moist, Normal Exam - Neck Exam Neck Exam: Full ROM, Normal Inspection - Respiratory Exam Respiratory Exam: Clear to Ausculation Bilateral, NORMAL BREATHING PATTERN - Cardiovascular Exam Cardiovascular Exam: REGULAR RHYTHM, RRR - GI/Abdominal Exam GI & Abdominal Exam: Distended, Soft - Extremities Exam Extremities Exam: Full ROM, Normal Inspection - Neurological Exam Neurological Exam: Alert, Awake, Oriented x3 - Psychiatric Exam Psychiatric exam: Normal Affect, Normal Mood - Skin Skin Exam: Intact, Warm Assessment and Plan (1) End stage renal disease Status: Acute (2) Hyperkalemia Status: Acute (3) PAD (peripheral artery disease) Status: Acute - Assessment and Plan (Free Text) Assessment: maintain hd outpt placement hgb stable
[2018-08-10 15:17] VITALS: TEMP 98.1
[2018-08-10 15:18] LABS: BASO # 0.1 K/uL (0.0-0.2); EOS # 0.3 K/uL (0.0-0.7); EOS % 4.7 % (0.0-4.0); HEMOGLOBIN 10.1 g/dL (12.0-18.0); LYMPH # 1.2 K/uL (1.0-4.3); LYMPH % 16.4 % (20.0-40.0); MEAN CELL VOLUME 84.6 fL (80.0-94.0); MEAN CORPUSCULAR HEMOGLOBIN 27.1 pg (27.0-31.0); MEAN CORPUSCULAR HGB CONC 32.1 g/dL (33.0-37.0); MEAN PLATELET VOLUME 9.2 fL (7.2-11.7); MONO # 0.8 K/uL (0.0-0.8); MONO % 11.6 % (0.0-10.0); NEUT # 4.8 K/uL (1.8-7.0); NEUT % 66.3 % (50.0-75.0); RBC 3.73 Mil/uL (4.40-5.90); RED CELL DISTRIBUTION WIDTH 14.7 % (11.5-14.5); WHITE BLOOD COUNT 7.2 K/uL (4.8-10.8)
[2018-08-10 15:54] LABS: ALB/GLOB RATIO 1.1 (1.0-2.1); ALBUMIN 3.1 g/dL (3.5-5.0); CALCIUM 7.9 mg/dl (8.6-10.4)
[2018-08-10 17:13] VITALS: O2SAT 97
[2018-08-10 17:39] VITALS: BP 154/83; PULSE 93
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
== END 2018-08-10 19:11 | disposition home or self-care (01) | DRG 628 ==
LOC: C.ER 12:39 → C.9E 14:48 → C.5S 23:08
PROVIDERS: ADMIT Internal Medicine Pulmonary Disease; ATTEND Internal Medicine Pulmonary Disease
PROC: 02HV33Z Insertion of Infusion Device into Superior Vena Cava, Percutaneous Approach (ICD-10-PCS; 2018-08-05)
PROC: 5A1D70Z Performance of Urinary Filtration, Intermittent, Less than 6 Hours Per Day (ICD-10-PCS; 2018-08-05)
PROC: 03180ZD Bypass Left Brachial Artery to Upper Arm Vein, Open Approach (ICD-10-PCS; principal; 2018-08-09 11:45)
DX: E87.5 Hyperkalemia (principal); N18.6 End stage renal disease; I12.0 Hypertensive chronic kidney disease with stage 5 chronic kidney disease or end stage renal disease; N39.0 Urinary tract infection, site not specified; E87.2 Acidosis; I16.0 Hypertensive urgency; I25.10 Atherosclerotic heart disease of native coronary artery without angina pectoris; D64.9 Anemia, unspecified; E78.5 Hyperlipidemia, unspecified; G40.909 Epilepsy, unspecified, not intractable, without status epilepticus; Z86.73 Personal history of transient ischemic attack (TIA), and cerebral infarction without residual deficits; N40.0 Benign prostatic hyperplasia without lower urinary tract symptoms; Z99.2 Dependence on renal dialysis; F17.210 Nicotine dependence, cigarettes, uncomplicated; K21.9 Gastro-esophageal reflux disease without esophagitis

== ENCOUNTER 2018-08-23 10:51 | Inpatient (IN) | payer MEDICARE ==
[2018-08-23 10:51] VITALS: BMI 21.2
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
--- NOTE | 2018-08-23 11:45 | RAD ---
Date of service: 08/23/2018 PROCEDURE: CHEST RADIOGRAPH, 1 VIEW HISTORY: SOB COMPARISON: 08/05/2018 FINDINGS: LUNGS: Clear. PLEURA: No pneumothorax or pleural fluid seen. CARDIOVASCULAR: Right tunneled central venous dialysis catheter. Normal. OSSEOUS STRUCTURES: No acute fracture. Spinal fixation rods are again evident. VISUALIZED UPPER ABDOMEN: Normal. OTHER FINDINGS: None. IMPRESSION: No active disease.
[2018-08-23 12:18] LABS: BASO # 0.1 K/uL (0.0-0.2); EOS # 0.4 K/uL (0.0-0.7); EOS % 5.2 % (0.0-4.0); HEMOGLOBIN 11.2 g/dL (12.0-18.0); LYMPH # 1.5 K/uL (1.0-4.3); MEAN CELL VOLUME 86.1 fL (80.0-94.0); MEAN CORPUSCULAR HEMOGLOBIN 28.1 pg (27.0-31.0); MEAN CORPUSCULAR HGB CONC 32.6 g/dL (33.0-37.0); MEAN PLATELET VOLUME 8.6 fL (7.2-11.7); MONO # 0.7 K/uL (0.0-0.8); MONO % 9.3 % (0.0-10.0); NEUT # 4.8 K/uL (1.8-7.0); NEUT % 64.5 % (50.0-75.0); RBC 3.98 Mil/uL (4.40-5.90); RED CELL DISTRIBUTION WIDTH 15.3 % (11.5-14.5); WHITE BLOOD COUNT 7.5 K/uL (4.8-10.8)
[2018-08-23 12:35] LABS: CALCIUM 8.6 mg/dl (8.6-10.4)
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
[2018-08-23] MEDS: Cefepime IV 1 gm in Dextrose 1 GM/50 ML BAG IVPB SCH (14:25)
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
[2018-08-24] MEDS: Cefepime IV 1 gm in Dextrose 1 GM/50 ML BAG IVPB SCH ×2 (01:15→14:15)
[2018-08-24 06:57] LABS: BASO # 0.1 K/uL (0.0-0.2); BASO % 0.8 % (0.0-2.0); EOS # 0.5 K/uL (0.0-0.7); EOS % 7.7 % (0.0-4.0); HEMOGLOBIN 10.8 g/dL (12.0-18.0); LYMPH % 15.4 % (20.0-40.0); MEAN CELL VOLUME 86.5 fL (80.0-94.0); MEAN CORPUSCULAR HEMOGLOBIN 27.7 pg (27.0-31.0); MEAN PLATELET VOLUME 8.7 fL (7.2-11.7); MONO # 0.7 K/uL (0.0-0.8); MONO % 10.3 % (0.0-10.0); NEUT # 4.3 K/uL (1.8-7.0); NEUT % 65.8 % (50.0-75.0); RBC 3.89 Mil/uL (4.40-5.90); RED CELL DISTRIBUTION WIDTH 15.5 % (11.5-14.5); WHITE BLOOD COUNT 6.6 K/uL (4.8-10.8)
[2018-08-24 07:05] LABS: PROTHROMBIN TIME 11.3 SECONDS (9.7-12.2)
[2018-08-24 07:27] LABS: ALBUMIN 3.5 g/dL (3.5-5.0); CALCIUM 8.3 mg/dl (8.6-10.4)
[2018-08-24] MEDS ORDERED: Home Med 1 UNIT (Simvastatin [Simvastatin] 1 TAB) PO SCH (10:00)
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
--- NOTE | 2018-08-24 10:44 | CP.PCM.PN ---
Subjective - Date & Time of Evaluation Date of Evaluation: 08/24/18 Time of Evaluation: 10:43 - Subjective Subjective: seen and examined no fevers wound cx neg athater site looks clean Objective - Vital Signs/Intake and Output Vital Signs (last 24 hours): Temp Pulse Resp BP Pulse Ox 97.5 F L 81 16 133/70 98 08/24/18 09:55 08/24/18 10:25 08/24/18 10:25 08/24/18 10:25 08/24/18 09:55 Intake and Output: 08/24/18 08/24/18 06:59 18:59 Intake Total 170 Balance 170 - Medications Medications: Current Medications Amlodipine Besylate (Norvasc) 10 mg PO DAILY [facility] Calcitriol (Rocaltrol) 0.25 mcg PO DAILY [facility] Clonidine HCl (Catapres) 0.1 mg PO Q12H [facility] Last Admin: 08/24/18 01:13 Dose: 0.1 mg Ferrous Sulfate (Feosol) 325 mg PO DAILY [facility] Finasteride (Proscar) 5 mg PO DAILY [facility] Furosemide (Lasix) 80 mg PO DAILY [facility] Cefepime HCl (Maxipime Iv 1 Gm Premix) 1 gm in 50 mls @ 100 mls/hr IVPB Q12H [facility]; Protocol Last Admin: 08/24/18 01:15 Dose: 100 mls/hr Vancomycin HCl 1 gm/ Sodium (Chloride) 250 mls @ 166.7 mls/hr IVPB Q24H [facility]; Protocol Last Admin: 08/23/18 14:53 Dose: 166.7 mls/hr Losartan Potassium (Cozaar) 25 mg PO DAILY [facility] Pantoprazole Sodium (Protonix Ec Tab) 40 mg PO DAILY [facility] Phenytoin Sodium (Dilantin) 100 mg PO TID [facility] Last Admin: 08/23/18 17:23 Dose: 100 mg Rosuvastatin Calcium (Crestor) 10 mg PO HS [facility] Last Admin: 08/23/18 21:28 Dose: 10 mg - Labs Labs: 08/24/18 06:43 08/24/18 06:43 PT 11.3 SECONDS (9.7-12.2) 08/24/18 06:43 INR 1.0 08/24/18 06:43 APTT 26 SECONDS (21-34) 08/24/18 06:43 - Constitutional Appears: Non-toxic, No Acute Distress - Head Exam Head Exam: NORMAL INSPECTION, NORMOCEPHALIC - Eye Exam Eye Exam: Normal appearance, PERRL - ENT Exam ENT Exam: Mucous Membranes Moist, Normal Exam - Neck Exam Neck Exam: Full ROM, Normal Inspection - Respiratory Exam Respiratory Exam: Clear to Ausculation Bilateral, NORMAL BREATHING PATTERN - Cardiovascular Exam Cardiovascular Exam: REGULAR RHYTHM, RRR (rt chest permcath, clean dressing) - GI/Abdominal Exam GI & Abdominal Exam: Distended, Soft, Normal Bowel Sounds - Extremities Exam Extremities Exam: Full ROM, Normal Inspection - Neurological Exam Neurological Exam: Alert, Awake, Oriented x3 - Psychiatric Exam Psychiatric exam: Normal Affect, Normal Mood - Skin Skin Exam: Dry, Intact Assessment and Plan (1) End stage renal disease Status: Acute (2) Local infection due to Port-A-Cath Status: Acute (3) Chronic anemia Status: Acute (4) Hypertensive chronic kidney disease with stage 5 chronic kidney disease or end stage renal disease Status: Acute - Assessment and Plan (Free Text) Assessment: maintain hd tts antibiotics ID eval. follow up blood cultures
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
[2018-08-24 14:12] VITALS: RESP 20
[2018-08-24] MEDS: Pantoprazole 40 mg EC Tab PO SCH (14:15)
--- NOTE | 2018-08-24 20:10 | CARD ---
APPROVED REPORT Date of service: 08/23/2018 EKG Measurement Heart [id number] <Conclusion> Normal sinus rhythm Right bundle branch block Abnormal ECG
[2018-08-25] MEDS: Cefepime IV 1 gm in Dextrose 1 GM/50 ML BAG IVPB SCH ×2 (01:39→13:44)
--- NOTE | 2018-08-25 07:10 | HP ---
HISTORY OF PRESENT ILLNESS: This is a 73-year-old male admitted to the hospital with chief complaint of weakness, fatigue, tiredness, and infected port. The patient is to start dialysis and has a port inserted. PHYSICAL EXAMINATION: GENERAL: The patient is awake, alert, oriented. VITAL SIGNS: Temperature 98, pulse 92. HEENT: Within normal limits. NECK: Supple. CHEST: Symmetrical. HEART: Regular. ABDOMEN: Soft. EXTREMITIES: No edema. IMPRESSION: Patient suffers from dialysis catheter. ____ antibiotics, surgical consult. Arthur Sin MD
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
[2018-08-25] MEDS: Pantoprazole 40 mg EC Tab PO SCH (09:53)
--- NOTE | 2018-08-25 13:49 | CP.PCM.PN ---
Subjective - Date & Time of Evaluation Date of Evaluation: 08/25/18 Time of Evaluation: 13:47 - Subjective Subjective: no distress cx negative still with some numbness over left forearm no chest pain no sob no palpitations no fever no chills no diarrhea no nausea decreased urine production no rash no arthralgias Objective - Vital Signs/Intake and Output Vital Signs (last 24 hours): Temp Pulse Resp BP Pulse Ox 97.8 F 74 20 113/62 99 08/25/18 08:17 08/25/18 08:17 08/25/18 08:17 08/25/18 09:52 08/25/18 08:17 Intake and Output: 08/25/18 08/25/18 06:59 18:59 Intake Total 170 Balance 170 - Medications Medications: Current Medications Amlodipine Besylate (Norvasc) 10 mg PO DAILY [facility] Last Admin: 08/25/18 09:53 Dose: 10 mg Calcitriol (Rocaltrol) 0.25 mcg PO DAILY [facility] Last Admin: 08/25/18 09:53 Dose: 0.25 mcg Clonidine HCl (Catapres) 0.1 mg PO Q12H [facility] Last Admin: 08/25/18 01:39 Dose: 0.1 mg Ferrous Sulfate (Feosol) 325 mg PO DAILY [facility] Last Admin: 08/25/18 09:53 Dose: 325 mg Finasteride (Proscar) 5 mg PO DAILY [facility] Last Admin: 08/25/18 09:54 Dose: 5 mg Furosemide (Lasix) 80 mg PO DAILY [facility] Last Admin: 08/25/18 09:52 Dose: 80 mg Cefepime HCl (Maxipime Iv 1 Gm Premix) 1 gm in 50 mls @ 100 mls/hr IVPB Q12H [facility]; Protocol Last Admin: 08/25/18 13:44 Dose: Not Given Vancomycin HCl 1 gm/ Sodium (Chloride) 250 mls @ 166.7 mls/hr IVPB Q24H [facility]; Protocol Last Admin: 08/24/18 15:06 Dose: 166.7 mls/hr Losartan Potassium (Cozaar) 25 mg PO DAILY [facility] Last Admin: 08/25/18 09:53 Dose: 25 mg Pantoprazole Sodium (Protonix Ec Tab) 40 mg PO DAILY [facility] Last Admin: 08/25/18 09:53 Dose: 40 mg Phenytoin Sodium (Dilantin) 100 mg PO TID [facility] Last Admin: 08/25/18 09:53 Dose: 100 mg Rosuvastatin Calcium (Crestor) 10 mg PO HS [facility] Last Admin: 08/24/18 22:21 Dose: 10 mg - Labs Labs: 08/24/18 06:43 08/24/18 06:43 PT 11.3 SECONDS (9.7-12.2) 08/24/18 06:43 INR 1.0 08/24/18 06:43 APTT 26 SECONDS (21-34) 08/24/18 06:43 - Constitutional Appears: Non-toxic, Chronically Ill - Head Exam Head Exam: ATRAUMATIC, NORMAL INSPECTION - Eye Exam Eye Exam: EOMI, Normal appearance - ENT Exam ENT Exam: Mucous Membranes Moist - Neck Exam Neck Exam: Full ROM. absent: Lymphadenopathy Additional comments: dialysis exit site c/d/i - Respiratory Exam Respiratory Exam: NORMAL BREATHING PATTERN - Cardiovascular Exam Cardiovascular Exam: REGULAR RHYTHM - GI/Abdominal Exam GI & Abdominal Exam: Soft. absent: Tenderness - Extremities Exam Extremities Exam: absent: Pedal Edema Assessment and Plan - Assessment and Plan (Free Text) Plan: maint HD stable from Renal for discharge
[2018-08-25 15:33] VITALS: BP 101/63; PULSE 85; TEMP 98; O2SAT 97
--- NOTE | 2018-08-25 18:27 | CP.PCM.PN ---
Subjective - Date & Time of Evaluation Date of Evaluation: 08/25/18 Time of Evaluation: 07:00 - Subjective Subjective: catheter site ok iv rx in progress cultures neg thus far cont rx as out pt Objective - Vital Signs/Intake and Output Vital Signs (last 24 hours): Temp Pulse Resp BP Pulse Ox 98.0 F 85 20 101/63 97 08/25/18 15:00 08/25/18 15:00 08/25/18 15:00 08/25/18 15:00 08/25/18 15:00 Intake and Output: 08/25/18 08/25/18 06:59 18:59 Intake Total 170 400 Balance 170 400 - Medications Medications: Current Medications Amlodipine Besylate (Norvasc) 10 mg PO DAILY [facility] Last Admin: 08/25/18 09:53 Dose: 10 mg Calcitriol (Rocaltrol) 0.25 mcg PO DAILY [facility] Last Admin: 08/25/18 09:53 Dose: 0.25 mcg Clonidine HCl (Catapres) 0.1 mg PO Q12H [facility] Last Admin: 08/25/18 14:14 Dose: 0.1 mg Ferrous Sulfate (Feosol) 325 mg PO DAILY [facility] Last Admin: 08/25/18 09:53 Dose: 325 mg Finasteride (Proscar) 5 mg PO DAILY [facility] Last Admin: 08/25/18 09:54 Dose: 5 mg Furosemide (Lasix) 80 mg PO DAILY [facility] Last Admin: 08/25/18 09:52 Dose: 80 mg Cefepime HCl (Maxipime Iv 1 Gm Premix) 1 gm in 50 mls @ 100 mls/hr IVPB Q12H [facility]; Protocol Last Admin: 08/25/18 13:44 Dose: Not Given Vancomycin HCl 1 gm/ Sodium (Chloride) 250 mls @ 166.7 mls/hr IVPB Q24H [facility]; Protocol Last Admin: 08/25/18 14:09 Dose: Not Given Losartan Potassium (Cozaar) 25 mg PO DAILY [facility] Last Admin: 08/25/18 09:53 Dose: 25 mg Pantoprazole Sodium (Protonix Ec Tab) 40 mg PO DAILY [facility] Last Admin: 08/25/18 09:53 Dose: 40 mg Phenytoin Sodium (Dilantin) 100 mg PO TID [facility] Last Admin: 08/25/18 18:23 Dose: 100 mg Rosuvastatin Calcium (Crestor) 10 mg PO HS [facility] Last Admin: 08/24/18 22:21 Dose: 10 mg - Labs Labs: 08/24/18 06:43 08/24/18 06:43 PT 11.3 SECONDS (9.7-12.2) 08/24/18 06:43 INR 1.0 08/24/18 06:43 APTT 26 SECONDS (21-34) 08/24/18 06:43 - Constitutional Appears: Non-toxic, Chronically Ill - Head Exam Head Exam: NORMOCEPHALIC - Eye Exam Eye Exam: absent: Scleral icterus - ENT Exam ENT Exam: Mucous Membranes Dry - Neck Exam Neck Exam: absent: Lymphadenopathy - Respiratory Exam Respiratory Exam: Decreased Breath Sounds - Cardiovascular Exam Cardiovascular Exam: REGULAR RHYTHM - GI/Abdominal Exam GI & Abdominal Exam: Distended, Soft - Rectal Exam Rectal Exam: Deferred - Exam Exam: NORMAL INSPECTION - Extremities Exam Extremities Exam: absent: Pedal Edema - Back Exam Back Exam: absent: CVA tenderness (L), CVA tenderness (R) - Neurological Exam Neurological Exam: Alert, Awake, CN II-XII Intact Assessment and Plan (1) End stage renal disease Status: Acute (2) Local infection due to Port-A-Cath Status: Acute - Assessment and Plan (Free Text) Assessment: cont rx as out pt cultures neg thus far
== END 2018-08-25 22:37 | disposition home or self-care (01) | DRG 314 ==
LOC: C.ER 10:51 → C.9E 11:25 → C.5S 11:50
PROVIDERS: ADMIT Internal Medicine Pulmonary Disease; ATTEND Internal Medicine Pulmonary Disease
PROC: 5A1D70Z Performance of Urinary Filtration, Intermittent, Less than 6 Hours Per Day (ICD-10-PCS; principal; 2018-08-24)
DX: T80.212A Local infection due to central venous catheter, initial encounter (principal); N18.6 End stage renal disease; I12.0 Hypertensive chronic kidney disease with stage 5 chronic kidney disease or end stage renal disease; I25.10 Atherosclerotic heart disease of native coronary artery without angina pectoris; K21.9 Gastro-esophageal reflux disease without esophagitis; D64.9 Anemia, unspecified; G40.909 Epilepsy, unspecified, not intractable, without status epilepticus; N40.0 Benign prostatic hyperplasia without lower urinary tract symptoms; E78.5 Hyperlipidemia, unspecified; H54.7 Unspecified visual loss; Y84.8 Other medical procedures as the cause of abnormal reaction of the patient, or of later complication, without mention of misadventure at the time of the procedure; Z86.73 Personal history of transient ischemic attack (TIA), and cerebral infarction without residual deficits; Z99.2 Dependence on renal dialysis; Z87.891 Personal history of nicotine dependence; Z79.899 Other long term (current) drug therapy; Z86.79 Personal history of other diseases of the circulatory system; Z80.42 Family history of malignant neoplasm of prostate; Z83.3 Family history of diabetes mellitus

== ENCOUNTER 2018-09-30 20:24 | Inpatient (IN) | payer MEDICARE, MEDICAID ==
--- NOTE | 2018-09-30 20:29 | C.PDOC ---
Time Seen by Provider: 09/30/18 20:29 Chief Complaint (Nursing): Weakness/Neurological Deficit Past Medical History - Medical History PMH: Anemia, Fractures (BACK RODS AND PINS OVER 30 YRS AGO), HTN, Seizures, TIA Surgical History: Endoscopy - [facility] Procedures (08/23/18) BYPASS LEFT BRACHIAL ARTERY TO UPPER ARM VEIN, OPEN APPROACH (08/04/18) INSERTION OF INFUSION DEV INTO SUP VENA CAVA, PERC APPROACH (08/04/18) RESTRICT ABD AORTA, BIFURC, W INTRALUM DEV, PERC (02/25/17) - Social History Hx Alcohol Use: Yes (BEFORE) Hx Substance Use: No - Immunization History Hx Tetanus Toxoid Vaccination: No Hx Influenza Vaccination: Yes (08/02/2018) Hx Pneumococcal Vaccination: No Disposition Counseled Patient/Family Regarding: Studies Performed, Diagnosis - Disposition Disposition Time: 20:29
[2018-09-30] MEDS: Sodium Chloride 0.9% 1,000 ML IV SCH (20:43)
--- NOTE | 2018-09-30 20:44 | C.PDOC ---
History Of Present Illness Patient goes to dialysis on Tuesdays, and Saturdays, and was brought in today after his dialysis appointment due to complaints of "not feeling well." Patient reports fever, elevated heart rate and diffuse bodyaches. He also reports diaphoresis. Otherwise, patient denies any chest pain, shortness of breath, vomiting, abdominal pain. No additional complaints. Time Seen by Provider: 09/30/18 20:29 Chief Complaint (Nursing): Weakness/Neurological Deficit History Per: Patient History/Exam Limitations: no limitations Current Symptoms Are (Timing): Still Present Severity: Severe Pain Scale Rating Of: 6 Reports Recently: Seen In ED, Treated By A Physician, Hospitalized Recent travel outside of the [place]: No Additional History Per: Patient, Family Past Medical History Reviewed: Historical Data, Nursing Documentation, Vital Signs Vital Signs: Last Vital Signs Temp 102.4 F H 09/30/18 20:27 Pulse 134 H 09/30/18 20:38 Resp 22 09/30/18 20:38 BP 84/51 L 09/30/18 20:40 Pulse Ox 96 09/30/18 20:38 - Medical History PMH: Anemia, Fractures (BACK RODS AND PINS OVER 30 YRS AGO), HTN, Seizures, TIA Surgical History: Endoscopy - [facility] Procedures (08/23/18) BYPASS LEFT BRACHIAL ARTERY TO UPPER ARM VEIN, OPEN APPROACH (08/04/18) INSERTION OF INFUSION DEV INTO SUP VENA CAVA, PERC APPROACH (08/04/18) RESTRICT ABD AORTA, BIFURC, W INTRALUM DEV, PERC (02/25/17) Family History: States: No Known Family Hx - Social History Hx Alcohol Use: Yes (BEFORE) Hx Substance Use: No - Immunization History Hx Tetanus Toxoid Vaccination: No Hx Influenza Vaccination: Yes (08/02/2018) Hx Pneumococcal Vaccination: No Review Of Systems Constitutional: Positive for: Fever, Other (diffuse bodyaches). Negative for: Chills Cardiovascular: Positive for: Other (elevated heart rate). Negative for: Chest Pain Respiratory: Negative for: Shortness of Breath Gastrointestinal: Negative for: Vomiting, Abdominal Pain Neurological: Negative for: Weakness, Numbness Physical Exam - Physical Exam Appears: Non-toxic Skin: Warm, Dry Head: Atraumatic Eye(s): bilateral: Normal Inspection, PERRL, EOMI Oral Mucosa: Moist Neck: Normal ROM, Supple Chest: Symmetrical, Other (right chest wall with dialysis port) Cardiovascular: Rhythm Regular, Other (tachycardic) Respiratory: No Rales, Rhonchi (scattered), No Wheezing Gastrointestinal/Abdominal: Bowel Sounds (good bowel sounds), Soft, No Tenderness Back: Paraspinal Tenderness (diffuse tenderness) Extremity: No Tenderness, No Pedal Edema, No Deformity, No Swelling, Other (left arm with dialysis graft; stitches in place; good thrill and bruit) Extremity: Bilateral: Atraumatic, Normal Color And Temperature, Normal ROM Pulses: Left Dorsalis Pedis: Normal, Right Dorsalis Pedis: Normal Neurological/Psych: Oriented x3 Gait: Unable To Assess ED Course And Treatment - Laboratory Results Result Diagrams: 09/30/18 20:51 09/30/18 20:51 ECG: Interpreted By Me, Viewed By Me ECG Rhythm: Sinus Tachycardia (135), R BBB O2 Sat by Pulse Oximetry: 96 Pulse Ox Interpretation: Normal - Radiology CXR: Interpreted by Me, Viewed By Me CXR Interpretation: Yes: Infiltrates (rll), Other (hd catheter r chest, not much changed from 08/23/18). No: Fracture, Cardiomegaly Progress Note: Labs, UA and CXR ordered. full 30cc/kg not given due to his renal status(esrd on hd). 9:[address] cornell,icu, will come and see the pt. 10:07 PM -as per dr cornell, pt can go to telemetry Critical Care Time - Critical Care Note Total Time (in mins): 30 Documented critical care: time excludes all time spent performing seperately billable procedures. Disposition Discussed With : Arthur Sin Comment: accepted the pt on his service and took over the care at 10:13 PM Doctor Will See Patient In The: Hospital Counseled Patient/Family Regarding: Studies Performed, Diagnosis - Disposition Disposition: HOSPITALIZED Disposition Time: 20:44 Condition: GUARDED Forms: [facility] (Maltese) - POA Present On Arrival: None - Clinical Impression Clinical Impression: Sepsis, ESRD (end stage renal disease) on dialysis - Scribe Statement The provider has reviewed the documentation as recorded by the Yoko Gutierrez Provider Attestation: All medical record entries made by the Yoko were at my direction and personally dictated by me. I have reviewed the chart and agree that the record accurately reflects my personal performance of the history, physical exam, me dical decision making, and the department course for this patient. I have also personally directed, reviewed, and agree with the discharge instructions and disposition. Decision To Admit - Pt Status Changed To: Hospital Disposition Of: Inpatient - Admit Certification Admit to Inpatient:: After my assessment, the patient will require hospitalization for at least two midnights. This is because of the severity of symptoms shown, intensity of services needed, and/or the medical risk in this patient being treated as an outpatient. - InPatient: Physician Admission Certification: I certify that this patient requires 2 or more midnights of care for the following reason:: After my assessment, the patient will require hospitalization for at least two midnights. This is because of the severity of symptoms shown, intensity of services needed, and/or the medical risk in this patient being treated as an outpatient. - . Bed Request Type: Telemetry Admitting Physician: Arthur Sin Patient Diagnosis: Sepsis, ESRD (end stage renal disease) on dialysis
[2018-09-30] MEDS ORDERED: Sodium Chloride 0.9% 1,000 ML IV ONE (20:46)
[2018-09-30 20:50] LABS: VENOUS BLOOD GAS BASE EXCESS 2.4 mmol/L (0.0-2.0); VENOUS BLOOD GAS PCO2 38 mmHg (40-60); VENOUS BLOOD GAS PO2 27 mm/Hg (30-55); VENOUS BLOOD PH 7.45 (7.32-7.43)
[2018-09-30 20:54] LABS: BASO # 0.1 K/uL (0.0-0.2); BASO % 0.3 % (0.0-2.0); HEMOGLOBIN 11.5 g/dL (12.0-18.0); LYMPH # 1.1 K/uL (1.0-4.3); LYMPH % 4.8 % (20.0-40.0); MEAN CORPUSCULAR HEMOGLOBIN 27.4 pg (27.0-31.0); MEAN CORPUSCULAR HGB CONC 32.5 g/dL (33.0-37.0); MEAN PLATELET VOLUME 8.7 fL (7.2-11.7); MONO # 1.3 K/uL (0.0-0.8); MONO % 5.5 % (0.0-10.0); NEUT # 20.4 K/uL (1.8-7.0); NEUT % 89.4 % (50.0-75.0); NRBC % 0.2 % (0.0-2.0); RBC 4.21 Mil/uL (4.40-5.90)
[2018-09-30] MEDS ORDERED: Vancomycin 1 GM 1 GM/250 ML BAG IVPB STA (20:54)
[2018-09-30] MEDS ORDERED: Piperacillin/Tazobact 3.375 gm 100 ML IVPB STA (20:54)
[2018-09-30 20:57] LABS: MEAN CELL VOLUME 84.2 fL (80.0-94.0); PLATELET COUNT 210 K/uL (130-400); WHITE BLOOD COUNT 22.8 K/uL (4.8-10.8)
[2018-09-30] MEDS ORDERED: Piperacillin/Tazobact 3.375 gm 100 ML IVPB ONE (21:02)
[2018-09-30] MEDS ORDERED: Vancomycin 1 GM 1 GM/250 ML BAG IVPB ONE (21:02)
[2018-09-30 21:08] LABS: INR 1.4; PROTHROMBIN TIME 15.2 SECONDS (9.7-12.2)
[2018-09-30 21:11] LABS: ALB/GLOB RATIO 1.1 (1.0-2.1); ALBUMIN 3.8 g/dL (3.5-5.0); ALT/SGPT < 6 U/L (21-72); AST/SGOT 31 U/L (17-59); BLOOD UREA NITROGEN 36 mg/dL (9-20); CALCIUM 8.1 mg/dl (8.6-10.4); GFR NON-AFRICAN AMERICAN 11
[2018-09-30 21:23] LABS: ANISOCYTOSIS SLIGHT; BANDS 5 % (0-2); HYPOCHROMIC SLIGHT; LYMPHOCYTE 2 % (20-40); MONOCYTE 3 % (0-10); NEUTROPHIL 90 % (50-75); PLATELET ESTIMATE NORMAL (NORMAL); TOTAL CELLS COUNTED 100
[2018-09-30 21:24] LABS: POLYCHROMIC SLIGHT
[2018-09-30 21:27] LABS: TARGET CELLS SLIGHT
[2018-09-30] MEDS ORDERED: AMIKACIN SULFATE IVPB ONE (21:42)
[2018-09-30] MEDS ORDERED: DEXTROSE 5% IVPB ONE (21:42)
[2018-09-30] MEDS ORDERED: WATER IVPB ONE (21:42)
[2018-09-30] MEDS: Piperacill/Tazo 2.25gm in Dex 2.25 GM/50 ML BAG IVPB SCH (21:46)
[2018-09-30] MEDS: Albumin Human 25% (12.5 gm/50 ml) IV SCH ×2 (22:00→22:44)
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
[2018-09-30] MEDS ORDERED: Albumin Human 25% (12.5 gm/50 ml) IV ONE (23:06)
[2018-10-01 00:45] LABS: VENOUS BLOOD GAS BASE EXCESS -4.6 mmol/L (0.0-2.0); VENOUS BLOOD GAS PCO2 46 mmHg (40-60); VENOUS BLOOD GAS PO2 22 mm/Hg (30-55); VENOUS BLOOD PH 7.29 (7.32-7.43)
--- NOTE | 2018-10-01 00:56 | PCM.SEPTIC ---
Sepsis Progress Note - Reassessment Type Date of Evaluation: 10/01/18 Time of Evaluation: 00:55 Reassessment Type: Non-invasive reassessment - Non Invasive Reassessment Were the most recent vital sign reviewed: Yes Vital Sign (Latest): Temp Pulse Resp BP Pulse Ox 98.2 F 112 H 20 137/79 97 10/01/18 00:38 10/01/18 00:38 10/01/18 00:38 10/01/18 00:38 10/01/18 00:38 Cardiovascular: Yes: Regular Rate, Rhythm, Tachycardia Respiratory: Yes: Normal Breath Sounds. No: Accessory Muscle Use, Crackles, Rales, Rhonchi, Respiratory Distress Capillary Refill: Normal (Less than 2 sec) Pulses: Normal Radial, Normal Dorsalis Pedis, Normal Posterior Tibialis Skin: Normal Color - Invasive Reassessment (complete 2 of 4) Was a Central Venous Pressure Measurement obtained within 6 Hours after the presentation of septic shock: No Was a central venous oxygen measurement obtained within 6 hours after the presentation of septic shock: No
[2018-10-01 02:23] LABS: URINE BACTERIA MOD (<OCC); URINE BILIRUBIN NEGATIVE (NEGATIVE); URINE BLOOD 2+ (NEGATIVE); URINE CLARITY Turbid (Clear); URINE COLOR Amber (YELLOW); URINE GLUCOSE (UA) NORMAL (Normal); URINE LEUKOCYTE ESTERASE 3+ Leu/uL (Negative); URINE PROTEIN 3+ mg/dL (NEGATIVE); URINE UROBILINOGEN NORMAL mg/dL (0.2-1.0); WBC CLUMPS MANY /hpf
[2018-10-01] MEDS: Piperacill/Tazo 2.25gm in Dex 2.25 GM/50 ML BAG IVPB SCH ×3 (05:05→21:01)
[2018-10-01] MEDS: Sodium Chloride 0.9% 1,000 ML IV SCH ×2 (07:06→13:23)
--- NOTE | 2018-10-01 09:05 | RAD ---
HISTORY: Sepsis Patient COMPARISON: Chest x-ray performed 08/23/18 TECHNIQUE: Chest, one view. FINDINGS: Examination limited by habitus, hypoinflation, and patient obliquity. External wires and leads obscure evaluation of the underlying parenchyma. Right IJ approach dialysis catheter with tips at the SVC/cavoatrial junction. LUNGS: Minimal bibasilar and lingular atelectasis. No focal consolidation. Please note that chest x-ray has limited sensitivity for the detection of pulmonary masses. PLEURA: No significant pleural effusion identified. No definite pneumothorax . CARDIOVASCULAR: Cardiomegaly. Ectatic aorta. Atherosclerotic calcifications. OSSEOUS STRUCTURES: Spinal fixation rods. VISUALIZED UPPER ABDOMEN: Unremarkable. OTHER FINDINGS: None. IMPRESSION: Limited study. Right IJ approach dialysis catheter with tips at the SVC/cavoatrial junction. Cardiomegaly. Ectatic aorta. Atherosclerotic calcifications. Minimal bibasilar and lingular atelectasis.
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
[2018-10-01] MEDS ORDERED: Atropine-Diphenoxylate 0.025-2.5 mg Tab PO PRN (09:26)
[2018-10-01 11:09] LABS: BASO # 0.1 K/uL (0.0-0.2); BASO % 0.3 % (0.0-2.0); EOS # 0.2 K/uL (0.0-0.7); EOS % 0.7 % (0.0-4.0); HEMOGLOBIN 10.7 g/dL (12.0-18.0); LYMPH # 1.5 K/uL (1.0-4.3); LYMPH % 6.3 % (20.0-40.0); MEAN CELL VOLUME 85.5 fL (80.0-94.0); MEAN CORPUSCULAR HEMOGLOBIN 27.6 pg (27.0-31.0); MEAN CORPUSCULAR HGB CONC 32.3 g/dL (33.0-37.0); MEAN PLATELET VOLUME 8.9 fL (7.2-11.7); MONO # 0.9 K/uL (0.0-0.8); MONO % 3.6 % (0.0-10.0); NEUT # 20.9 K/uL (1.8-7.0); NEUT % 89.1 % (50.0-75.0); PLATELET COUNT 162 K/uL (130-400); RBC 3.87 Mil/uL (4.40-5.90); RED CELL DISTRIBUTION WIDTH 16.2 % (11.5-14.5); WHITE BLOOD COUNT 23.4 K/uL (4.8-10.8)
[2018-10-01 11:35] LABS: ALB/GLOB RATIO 1.3 (1.0-2.1); ALBUMIN 3.9 g/dL (3.5-5.0); CALCIUM 7.6 mg/dl (8.6-10.4)
[2018-10-01 11:52] LABS: ANISOCYTOSIS SLIGHT; BANDS 3 % (0-2); LYMPHOCYTE 6 % (20-40); MONOCYTE 3 % (0-10); NEUTROPHIL 88 % (50-75); PLATELET ESTIMATE NORMAL (NORMAL); TOTAL CELLS COUNTED 100
[2018-10-01 11:53] LABS: HYPOCHROMIC SLIGHT; LARGE PLATELETS PRESENT; POIKILOCYTOSIS SLIGHT; TARGET CELLS SLIGHT
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
[2018-10-01] MEDS: Metoprolol 1 mg/ml Inj IVP ONE ×2 (15:55→15:56)
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
[2018-10-02] MEDS: Piperacill/Tazo 2.25gm in Dex 2.25 GM/50 ML BAG IVPB SCH ×3 (06:14→20:46)
[2018-10-02 08:37] LABS: BASO # 0.1 K/uL (0.0-0.2); BASO % 0.3 % (0.0-2.0); EOS % 0.3 % (0.0-4.0); HEMOGLOBIN 9.1 g/dL (12.0-18.0); LYMPH # 1.6 K/uL (1.0-4.3); LYMPH % 10.1 % (20.0-40.0); MEAN CELL VOLUME 83.8 fL (80.0-94.0); MEAN CORPUSCULAR HEMOGLOBIN 27.5 pg (27.0-31.0); MEAN CORPUSCULAR HGB CONC 32.8 g/dL (33.0-37.0); MEAN PLATELET VOLUME 9.5 fL (7.2-11.7); MONO # 1.2 K/uL (0.0-0.8); MONO % 7.6 % (0.0-10.0); NEUT # 13.3 K/uL (1.8-7.0); NEUT % 81.7 % (50.0-75.0); NRBC % 0.2 % (0.0-2.0); RBC 3.32 Mil/uL (4.40-5.90); WHITE BLOOD COUNT 16.3 K/uL (4.8-10.8)
[2018-10-02 09:10] LABS: ALB/GLOB RATIO 1.1 (1.0-2.1); ALBUMIN 3.1 g/dL (3.5-5.0); CALCIUM 7.6 mg/dl (8.6-10.4)
[2018-10-02] MEDS: Enoxaparin 30 mg Syringe SC SCH (09:27)
[2018-10-02] MEDS: Sodium Chloride 0.9% 1,000 ML IV SCH (09:29)
--- NOTE | 2018-10-02 09:31 | CP.PCM.PN ---
Subjective - Date & Time of Evaluation Date of Evaluation: 10/02/18 Time of Evaluation: 09:30 - Subjective Subjective: permcath removed on IV ABs for line sepsis appetite poor- maybe improving clonidine restarted- BP stable afebrile now for dialysis today Objective - Vital Signs/Intake and Output Vital Signs (last 24 hours): Temp Pulse Resp BP Pulse Ox 98.9 F 100 H 20 129/73 96 10/02/18 07:00 10/02/18 09:26 10/02/18 07:00 10/02/18 09:26 10/02/18 07:00 Intake and Output: 10/02/18 10/02/18 06:59 18:59 Intake Total 320 Output Total 0 Balance 320 - Medications Medications: Current Medications Acetaminophen (Tylenol 325mg Tab) 975 mg PO ONCE PRN PRN Reason: Fever >100.4 F Aspirin (Ecotrin) 81 mg PO DAILY [facility] Last Admin: 10/02/18 09:27 Dose: 81 mg Calcitriol (Rocaltrol) 0.25 mcg PO DAILY [facility] Last Admin: 10/02/18 09:27 Dose: 0.25 mcg Clonidine HCl (Catapres) 0.1 mg PO Q12H [facility] Last Admin: 10/02/18 09:27 Dose: 0.1 mg Clopidogrel Bisulfate (Plavix) 75 mg PO DAILY [facility] Last Admin: 10/02/18 09:27 Dose: 75 mg Diphenoxylate HCl/Atropine (Lomotil 0.025-2.5 Mg Tablet) 1 tab PO DAILY PRN PRN Reason: Diarrhea Enoxaparin Sodium (Lovenox) 30 mg SC DAILY [facility] Last Admin: 10/02/18 09:27 Dose: 30 mg Famotidine (Pepcid) 20 mg PO BID [facility] Last Admin: 10/02/18 09:27 Dose: 20 mg Ferrous Sulfate (Feosol) 325 mg PO DAILY [facility] Last Admin: 10/02/18 09:27 Dose: 325 mg Finasteride (Proscar) 5 mg PO DAILY [facility] Last Admin: 10/02/18 09:27 Dose: 5 mg Piperacillin Sod/Tazobactam Sod (Zosyn 2.25 Gm Iv Premix) 2.25 gm in 50 mls @ 100 mls/hr IVPB Q8H [facility]; Protocol Last Admin: 10/02/18 06:14 Dose: 100 mls/hr Sodium Chloride (Sodium Chloride 0.9%) 1,000 mls @ 50 mls/hr IV .Q20H [facility] Last Admin: 10/02/18 09:29 Dose: Not Given Phenytoin Sodium (Dilantin) 100 mg PO TID [facility] Last Admin: 10/02/18 09:27 Dose: 100 mg Rosuvastatin Calcium (Crestor) 10 mg PO HS [facility] Last Admin: 10/01/18 21:01 Dose: 10 mg - Labs Labs: 10/02/18 08:31 10/02/18 08:31 PT 15.2 SECONDS (9.7-12.2) H 09/30/18 20:51 INR 1.4 09/30/18 20:51 APTT 39 SECONDS (21-34) H 09/30/18 20:51 - Constitutional Appears: No Acute Distress, Cachectic, Chronically Ill - Head Exam Head Exam: ATRAUMATIC, NORMAL INSPECTION - Eye Exam Eye Exam: EOMI, Normal appearance - Neck Exam Neck Exam: Normal Inspection. absent: Tenderness - Respiratory Exam Respiratory Exam: Clear to Ausculation Bilateral, NORMAL BREATHING PATTERN - Cardiovascular Exam Cardiovascular Exam: REGULAR RHYTHM, +S1 - GI/Abdominal Exam GI & Abdominal Exam: Soft. absent: Tenderness - Extremities Exam Extremities Exam: Normal Inspection. absent: Tenderness - Neurological Exam Neurological Exam: Awake, CN II-XII Intact - Skin Skin Exam: Dry, Warm Assessment and Plan (1) Line sepsis Status: Acute (2) PAD (peripheral artery disease) Status: Acute (3) Bacteremia Status: Acute (4) Hypertensive chronic kidney disease with stage 5 chronic kidney disease or end stage renal disease Status: Acute (5) ESRD (end stage renal disease) on dialysis Status: Acute - Assessment and Plan (Free Text) Plan: IV ABs dialysis this AM attempt use AV fistula
--- NOTE | 2018-10-02 11:10 | CP.PCM.PCO ---
Assessment & Plan - Assessment and Plan (Free Text) Assessment: 73M with unmatured AVF and No permacath access for HD at this time due to removal for infection Plan: Plan to place temporary HD access tomorrow in groin. D/W Dr. Abhilash Perdomo PGY4
[2018-10-03] MEDS: Sodium Chloride 0.9% 1,000 ML IV SCH (04:56)
[2018-10-03] MEDS: Piperacill/Tazo 2.25gm in Dex 2.25 GM/50 ML BAG IVPB SCH (04:56)
[2018-10-03] MEDS: Enoxaparin 30 mg Syringe SC SCH (09:18)
[2018-10-03 12:29] LABS: CALCIUM 7.5 mg/dl (8.6-10.4)
[2018-10-03 12:39] LABS: HEMOGLOBIN 9.1 g/dL (12.0-18.0); MEAN CELL VOLUME 83.6 fL (80.0-94.0); MEAN CORPUSCULAR HEMOGLOBIN 27.1 pg (27.0-31.0); MEAN CORPUSCULAR HGB CONC 32.4 g/dL (33.0-37.0); MEAN PLATELET VOLUME 10.7 fL (7.2-11.7); RBC 3.37 Mil/uL (4.40-5.90); RED CELL DISTRIBUTION WIDTH 16.4 % (11.5-14.5); WHITE BLOOD COUNT 13.2 K/uL (4.8-10.8)
[2018-10-03] MEDS ORDERED: Meropenem 500 MG in Sodium Chloride 0.9% 100 ML IVPB SCH (13:00)
[2018-10-03 13:03] LABS: LYMPH # 1.7 K/uL (1.0-4.3); MONO # 0.5 K/uL (0.0-0.8)
[2018-10-03] MEDS: Meropenem 500 MG in Sodium Chloride 0.9% 100 ML IVPB SCH (13:40)
--- NOTE | 2018-10-03 16:12 | CP.PCM.PN ---
Subjective - Date & Time of Evaluation Date of Evaluation: 10/03/18 Time of Evaluation: 08:00 - Subjective Subjective: Surgery: Dr. Hung Pt seen and examined. No acute overnight events. States he feels ok and denies complaints at this time. Denies fevers/chills. Objective - Vital Signs/Intake and Output Vital Signs (last 24 hours): Temp Pulse Resp BP Pulse Ox 98.3 F 89 18 122/69 97 10/03/18 07:00 10/03/18 12:02 10/03/18 07:00 10/03/18 09:17 10/03/18 07:00 Intake and Output: 10/03/18 10/03/18 06:59 18:59 Intake Total 650 Output Total 3 Balance 647 - Medications Medications: Current Medications Acetaminophen (Tylenol 325mg Tab) 975 mg PO ONCE PRN PRN Reason: Fever >100.4 F Aspirin (Ecotrin) 81 mg PO DAILY [facility] Last Admin: 10/03/18 09:19 Dose: 81 mg Calcitriol (Rocaltrol) 0.25 mcg PO DAILY [facility] Last Admin: 10/03/18 09:19 Dose: 0.25 mcg Clonidine HCl (Catapres) 0.1 mg PO Q12H [facility] Last Admin: 10/03/18 09:18 Dose: 0.1 mg Clopidogrel Bisulfate (Plavix) 75 mg PO DAILY [facility] Last Admin: 10/03/18 09:18 Dose: 75 mg Diphenoxylate HCl/Atropine (Lomotil 0.025-2.5 Mg Tablet) 1 tab PO DAILY PRN PRN Reason: Diarrhea Enoxaparin Sodium (Lovenox) 30 mg SC DAILY [facility] Last Admin: 10/03/18 09:18 Dose: 30 mg Famotidine (Pepcid) 20 mg PO BID [facility] Last Admin: 10/03/18 09:18 Dose: 20 mg Ferrous Sulfate (Feosol) 325 mg PO DAILY [facility] Last Admin: 10/03/18 09:18 Dose: 325 mg Finasteride (Proscar) 5 mg PO DAILY [facility] Last Admin: 10/03/18 09:19 Dose: 5 mg Heparin Sodium (Porcine) (Heparin Lock Flush) 500 units IVF ONCE ONE Stop: 10/03/18 16:07 Heparin Sodium (Porcine) (Heparin Lock Flush) 500 units IVF ONCE ONE Stop: 10/03/18 16:09 Sodium Chloride (Sodium Chloride 0.9%) 1,000 mls @ 50 mls/hr IV .Q20H [facility] Last Admin: 10/03/18 04:56 Dose: 50 mls/hr Meropenem 500 mg/ Sodium (Chloride) 100 mls @ 100 mls/hr IVPB Q12H [facility]; Protocol Stop: 10/10/18 13:16 Last Admin: 10/03/18 13:40 Dose: 100 mls/hr Phenytoin Sodium (Dilantin) 100 mg PO TID [facility] Last Admin: 10/03/18 13:39 Dose: 100 mg Rosuvastatin Calcium (Crestor) 10 mg PO HS [facility] Last Admin: 10/02/18 21:00 Dose: 10 mg - Labs Labs: 10/03/18 11:52 10/03/18 11:52 PT 15.2 SECONDS (9.7-12.2) H 09/30/18 20:51 INR 1.4 09/30/18 20:51 APTT 39 SECONDS (21-34) H 09/30/18 20:51 - Constitutional Appears: Well, No Acute Distress - Head Exam Head Exam: ATRAUMATIC, NORMOCEPHALIC - Eye Exam Eye Exam: Normal appearance - ENT Exam ENT Exam: Mucous Membranes Moist - Respiratory Exam Respiratory Exam: NORMAL BREATHING PATTERN - Cardiovascular Exam Cardiovascular Exam: RRR - GI/Abdominal Exam GI & Abdominal Exam: Soft. absent: Tenderness - Neurological Exam Neurological Exam: Alert, Awake - Skin Skin Exam: Dry, Warm Assessment and Plan - Assessment and Plan (Free Text) Assessment: 73M with ESRD Plan: - bedside femoral shiley placed; ok to use for HD - will need superficialization of AVF once infection resolved - cont ABX per ID recs - d/w Dr. Abhilash Yip Procedures Attestation:: I certify that I have explained the specified Operation(s) or Procedure(s), risks, benefits and reasonable alternatives to the Patient and/or other person responsible. The opportunity was given to ask questions and all questions answered - Central Line Placement Right Femoral Hemodialysis Access Aseptic technique was employed throughout the procedure: Hand Hygiene done prior to procedure, Full sterile barriers (mask, hair cover, sterile gown, sterile gloves), Chloraprep Antiseptic: 2 minute prep for Femoral CVP Time Out Performed: Yes Pt. Placed on Pulse Ox Monitor: No Central Line Prep: Chlorhexidine-Alcohol Combination Local Anesthesia Used: Lidocaine 1% Amount of Anesthesia Used (mls): 3 Ultrasound Used for Placement: Yes Central Line Lumen Inserted: double Central Line Length: 16 cm Post Procedure: Sutured in Place, Good Blood Return, All Ports Aspirated, Flushed, Capped, Sterile Dressing Applied Secured by: Suture Post procedure dressing: Chlorhexidine disc (Biopatch) Post Procedure X-Ray: No Patient Tolerated Procedure: Well, No Complications
--- NOTE | 2018-10-03 17:06 | CP.PCM.PN ---
Subjective - Date & Time of Evaluation Date of Evaluation: 10/03/18 Time of Evaluation: 07:00 - Subjective Subjective: permcath removed on IV ABs for line sepsis Blood growing ESBL Klebs on Merrem Objective - Vital Signs/Intake and Output Vital Signs (last 24 hours): Temp Pulse Resp BP Pulse Ox 99.5 F 95 H 18 124/67 97 10/03/18 15:00 10/03/18 15:00 10/03/18 15:00 10/03/18 15:00 10/03/18 15:00 Intake and Output: 10/03/18 10/03/18 06:59 18:59 Intake Total 650 Output Total 3 Balance 647 - Medications Medications: Current Medications Acetaminophen (Tylenol 325mg Tab) 975 mg PO ONCE PRN PRN Reason: Fever >100.4 F Aspirin (Ecotrin) 81 mg PO DAILY [facility] Last Admin: 10/03/18 09:19 Dose: 81 mg Calcitriol (Rocaltrol) 0.25 mcg PO DAILY [facility] Last Admin: 10/03/18 09:19 Dose: 0.25 mcg Clonidine HCl (Catapres) 0.1 mg PO Q12H [facility] Last Admin: 10/03/18 09:18 Dose: 0.1 mg Clopidogrel Bisulfate (Plavix) 75 mg PO DAILY [facility] Last Admin: 10/03/18 09:18 Dose: 75 mg Diphenoxylate HCl/Atropine (Lomotil 0.025-2.5 Mg Tablet) 1 tab PO DAILY PRN PRN Reason: Diarrhea Enoxaparin Sodium (Lovenox) 30 mg SC DAILY [facility] Last Admin: 10/03/18 09:18 Dose: 30 mg Famotidine (Pepcid) 20 mg PO BID [facility] Last Admin: 10/03/18 09:18 Dose: 20 mg Ferrous Sulfate (Feosol) 325 mg PO DAILY [facility] Last Admin: 10/03/18 09:18 Dose: 325 mg Finasteride (Proscar) 5 mg PO DAILY [facility] Last Admin: 10/03/18 09:19 Dose: 5 mg Sodium Chloride (Sodium Chloride 0.9%) 1,000 mls @ 50 mls/hr IV .Q20H [facility] Last Admin: 10/03/18 04:56 Dose: 50 mls/hr Meropenem 500 mg/ Sodium (Chloride) 100 mls @ 100 mls/hr IVPB Q12H [facility]; Protocol Stop: 10/10/18 13:16 Last Admin: 10/03/18 13:40 Dose: 100 mls/hr Phenytoin Sodium (Dilantin) 100 mg PO TID [facility] Last Admin: 10/03/18 13:39 Dose: 100 mg Rosuvastatin Calcium (Crestor) 10 mg PO HS [facility] Last Admin: 10/02/18 21:00 Dose: 10 mg - Labs Labs: 10/03/18 11:52 10/03/18 11:52 PT 15.2 SECONDS (9.7-12.2) H 09/30/18 20:51 INR 1.4 09/30/18 20:51 APTT 39 SECONDS (21-34) H 09/30/18 20:51 - Constitutional Appears: Well - Head Exam Head Exam: ATRAUMATIC, NORMAL INSPECTION, NORMOCEPHALIC - Eye Exam Eye Exam: EOMI, Normal appearance, PERRL Pupil Exam: NORMAL ACCOMODATION, PERRL - ENT Exam ENT Exam: Mucous Membranes Moist, Normal Exam - Neck Exam Neck Exam: Full ROM, Normal Inspection. absent: Lymphadenopathy - Respiratory Exam Respiratory Exam: Clear to Ausculation Bilateral, NORMAL BREATHING PATTERN - Cardiovascular Exam Cardiovascular Exam: REGULAR RHYTHM, +S1, +S2. absent: Murmur - GI/Abdominal Exam GI & Abdominal Exam: Soft, Normal Bowel Sounds. absent: Tenderness - Rectal Exam Rectal Exam: NORMAL INSPECTION - Extremities Exam Extremities Exam: Full ROM, Normal Capillary Refill, Normal Inspection. absent: Joint Swelling, Pedal Edema - Back Exam Back Exam: NORMAL INSPECTION - Neurological Exam Neurological Exam: Alert, Awake, CN II-XII Intact, Normal Gait, Oriented x3 - Psychiatric Exam Psychiatric exam: Normal Affect, Normal Mood - Skin Skin Exam: Dry, Intact, Normal Color, Warm Assessment and Plan (1) Bacteremia Status: Acute (2) ESRD (end stage renal disease) on dialysis Status: Acute (3) Hypertensive chronic kidney disease with stage 5 chronic kidney disease or end stage renal disease Status: Acute (4) Line sepsis Status: Acute (5) PAD (peripheral artery disease) Status: Acute (6) Sepsis Status: Acute (7) Chronic anemia Status: Acute (8) End stage renal disease Status: Acute (9) Local infection due to Port-A-Cath Status: Acute (10) UTI (urinary tract infection) Status: Acute (11) Fever Status: Acute - Assessment and Plan (Free Text) Assessment: cont iv rc for min 14 days follow up cultures
[2018-10-04] MEDS: Meropenem 500 MG in Sodium Chloride 0.9% 100 ML IVPB SCH ×2 (01:02→14:41)
[2018-10-04] MEDS: Sodium Chloride 0.9% 1,000 ML IV SCH (04:03)
[2018-10-04 07:28] LABS: WHITE BLOOD COUNT 13.2 K/uL (4.8-10.8)
[2018-10-04 07:38] LABS: HEMOGLOBIN 9.5 g/dL (12.0-18.0); MEAN CELL VOLUME 83.5 fL (80.0-94.0); MEAN CORPUSCULAR HGB CONC 32.3 g/dL (33.0-37.0); MEAN PLATELET VOLUME 10.8 fL (7.2-11.7); RBC 3.52 Mil/uL (4.40-5.90); RED CELL DISTRIBUTION WIDTH 16.4 % (11.5-14.5)
[2018-10-04 08:07] LABS: ALB/GLOB RATIO 1.1 (1.0-2.1); CALCIUM 7.7 mg/dl (8.6-10.4)
[2018-10-04] MEDS: Enoxaparin 30 mg Syringe SC SCH (09:13)
[2018-10-04 09:40] LABS: EOS # 0.3 K/uL (0.0-0.7); LYMPH # 1.7 K/uL (1.0-4.3); MONO # 1.2 K/uL (0.0-0.8)
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
--- NOTE | 2018-10-04 11:45 | CP.PCM.PN ---
Subjective - Date & Time of Evaluation Date of Evaluation: 10/04/18 Time of Evaluation: 11:42 - Subjective Subjective: Seen at dialysis left AV F too deep - will need to be revised repeat cultures neg; on IV ABs for line sepsis Stable dialysis now- UF 1000ml; using fem cath Objective - Vital Signs/Intake and Output Vital Signs (last 24 hours): Temp Pulse Resp BP Pulse Ox 97.9 F 89 20 143/77 98 10/04/18 08:00 10/04/18 08:00 10/04/18 08:00 10/04/18 08:00 10/04/18 08:00 Intake and Output: 10/04/18 10/04/18 06:59 18:59 Intake Total 400 Balance 400 - Medications Medications: Current Medications Acetaminophen (Tylenol 325mg Tab) 975 mg PO ONCE PRN PRN Reason: Fever >100.4 F Last Admin: 10/03/18 17:17 Dose: 975 mg Aspirin (Ecotrin) 81 mg PO DAILY [facility] Last Admin: 10/04/18 10:13 Dose: 81 mg Calcitriol (Rocaltrol) 0.25 mcg PO DAILY [facility] Last Admin: 10/04/18 10:13 Dose: 0.25 mcg Clonidine HCl (Catapres) 0.1 mg PO Q12H [facility] Last Admin: 10/03/18 21:08 Dose: 0.1 mg Clopidogrel Bisulfate (Plavix) 75 mg PO DAILY [facility] Last Admin: 10/04/18 10:13 Dose: 75 mg Diphenoxylate HCl/Atropine (Lomotil 0.025-2.5 Mg Tablet) 1 tab PO DAILY PRN PRN Reason: Diarrhea Enoxaparin Sodium (Lovenox) 30 mg SC DAILY [facility] Last Admin: 10/03/18 09:18 Dose: 30 mg Famotidine (Pepcid) 20 mg PO BID [facility] Last Admin: 10/04/18 10:13 Dose: 20 mg Ferrous Sulfate (Feosol) 325 mg PO DAILY [facility] Last Admin: 10/04/18 10:13 Dose: 325 mg Finasteride (Proscar) 5 mg PO DAILY [facility] Last Admin: 10/04/18 10:13 Dose: 5 mg Sodium Chloride (Sodium Chloride 0.9%) 1,000 mls @ 50 mls/hr IV .Q20H [facility] Last Admin: 10/04/18 04:03 Dose: 50 mls/hr Meropenem 500 mg/ Sodium (Chloride) 100 mls @ 100 mls/hr IVPB Q12H [facility]; Protocol Stop: 10/10/18 13:16 Last Admin: 10/04/18 01:02 Dose: 100 mls/hr Phenytoin Sodium (Dilantin) 100 mg PO TID [facility] Last Admin: 10/04/18 10:13 Dose: 100 mg Rosuvastatin Calcium (Crestor) 10 mg PO HS [facility] Last Admin: 10/03/18 21:08 Dose: 10 mg - Labs Labs: 10/04/18 07:12 10/04/18 07:12 PT 15.2 SECONDS (9.7-12.2) H 09/30/18 20:51 INR 1.4 09/30/18 20:51 APTT 39 SECONDS (21-34) H 09/30/18 20:51 - Constitutional Appears: Cachectic, Chronically Ill - Head Exam Head Exam: ATRAUMATIC, NORMAL INSPECTION - Eye Exam Eye Exam: EOMI, Normal appearance - Neck Exam Neck Exam: Normal Inspection. absent: Tenderness - Respiratory Exam Respiratory Exam: Clear to Ausculation Bilateral, NORMAL BREATHING PATTERN - Cardiovascular Exam Cardiovascular Exam: REGULAR RHYTHM, +S1 - GI/Abdominal Exam GI & Abdominal Exam: Soft. absent: Tenderness - Extremities Exam Extremities Exam: Normal Inspection. absent: Tenderness - Neurological Exam Neurological Exam: Awake, CN II-XII Intact - Skin Skin Exam: Dry, Warm Assessment and Plan (1) Line sepsis Status: Acute (2) PAD (peripheral artery disease) Status: Acute (3) Bacteremia Status: Acute (4) Hypertensive chronic kidney disease with stage 5 chronic kidney disease or end stage renal disease Status: Acute (5) ESRD (end stage renal disease) on dialysis Status: Acute - Assessment and Plan (Free Text) Plan: Dialysis now IV ABs for line bacteremia Eventual revision AV fistula when bacteremia treated
[2018-10-05] MEDS: Meropenem 500 MG in Sodium Chloride 0.9% 100 ML IVPB SCH ×2 (00:48→17:27)
[2018-10-05 07:24] LABS: HEMOGLOBIN 9.2 g/dL (12.0-18.0)
[2018-10-05 07:36] LABS: MEAN CELL VOLUME 82.3 fL (80.0-94.0); MEAN CORPUSCULAR HEMOGLOBIN 27.3 pg (27.0-31.0); MEAN CORPUSCULAR HGB CONC 33.1 g/dL (33.0-37.0); MEAN PLATELET VOLUME 9.8 fL (7.2-11.7); RBC 3.38 Mil/uL (4.40-5.90); WHITE BLOOD COUNT 13.5 K/uL (4.8-10.8)
[2018-10-05 07:47] LABS: ALBUMIN 2.8 g/dL (3.5-5.0); CALCIUM 7.7 mg/dl (8.6-10.4)
--- NOTE | 2018-10-05 08:21 | CP.PCM.PN ---
Subjective - Date & Time of Evaluation Date of Evaluation: 10/05/18 Time of Evaluation: 08:20 - Subjective Subjective: urine and blood culture klebsiells will place /revise access when ok Objective - Vital Signs/Intake and Output Vital Signs (last 24 hours): Temp Pulse Resp BP Pulse Ox 98 F 97 H 20 147/71 95 10/04/18 23:10 10/04/18 23:10 10/04/18 23:10 10/04/18 23:10 10/04/18 23:10 Intake and Output: 10/05/18 10/05/18 06:59 18:59 Intake Total 200 Output Total 0 Balance 200 - Medications Medications: Current Medications Acetaminophen (Tylenol 325mg Tab) 975 mg PO ONCE PRN PRN Reason: Fever >100.4 F Last Admin: 10/03/18 17:17 Dose: 975 mg Aspirin (Ecotrin) 81 mg PO DAILY [facility] Last Admin: 10/04/18 10:13 Dose: 81 mg Calcitriol (Rocaltrol) 0.25 mcg PO DAILY [facility] Last Admin: 10/04/18 10:13 Dose: 0.25 mcg Clonidine HCl (Catapres) 0.1 mg PO Q12H [facility] Last Admin: 10/04/18 22:46 Dose: 0.1 mg Clopidogrel Bisulfate (Plavix) 75 mg PO DAILY [facility] Last Admin: 10/04/18 10:13 Dose: 75 mg Diphenoxylate HCl/Atropine (Lomotil 0.025-2.5 Mg Tablet) 1 tab PO DAILY PRN PRN Reason: Diarrhea Epoetin Kyler (Procrit) 10,000 unit IV TTS [facility] Famotidine (Pepcid) 20 mg PO DAILY [facility] Ferrous Sulfate (Feosol) 325 mg PO DAILY [facility] Last Admin: 10/04/18 10:13 Dose: 325 mg Finasteride (Proscar) 5 mg PO DAILY [facility] Last Admin: 10/04/18 10:13 Dose: 5 mg Heparin Sodium (Porcine) (Heparin) 5,000 units SC Q8 [facility] Last Admin: 10/05/18 05:39 Dose: 5,000 units Meropenem 500 mg/ Sodium (Chloride) 100 mls @ 100 mls/hr IVPB Q12H [facility]; Protocol Stop: 10/10/18 13:16 Last Admin: 10/05/18 00:48 Dose: 100 mls/hr Phenytoin Sodium (Dilantin) 100 mg PO TID [facility] Last Admin: 10/04/18 18:15 Dose: 100 mg Rosuvastatin Calcium (Crestor) 10 mg PO HS [facility] Last Admin: 10/04/18 22:46 Dose: 10 mg - Labs Labs: 10/05/18 07:14 10/05/18 07:14 PT 15.2 SECONDS (9.7-12.2) H 09/30/18 20:51 INR 1.4 09/30/18 20:51 APTT 39 SECONDS (21-34) H 09/30/18 20:51
[2018-10-05 09:19] LABS: EOS # 0.1 K/uL (0.0-0.7); LYMPH # 1.5 K/uL (1.0-4.3); MONO # 1.4 K/uL (0.0-0.8)
[2018-10-05] MEDS ORDERED: EPOETIN ALFA 10,000 UNIT/ML ML IV SCH (10:00)
--- NOTE | 2018-10-05 14:55 | CP.PCM.PN ---
Subjective - Date & Time of Evaluation Date of Evaluation: 10/05/18 Time of Evaluation: 08:30 - Subjective Subjective: Medicine progress note ( Dr. Sin's service) Patient was seen and examined at bedside while eating breakfast. Patient states that he is feeling well and has no complaints. Objective - Vital Signs/Intake and Output Vital Signs (last 24 hours): Temp Pulse Resp BP Pulse Ox 98 F 86 16 128/82 98 10/05/18 13:25 10/05/18 13:25 10/05/18 13:25 10/05/18 14:20 10/05/18 08:00 Intake and Output: 10/05/18 10/05/18 06:59 18:59 Intake Total 200 Output Total 0 Balance 200 - Medications Medications: Current Medications Acetaminophen (Tylenol 325mg Tab) 975 mg PO ONCE PRN PRN Reason: Fever >100.4 F Last Admin: 10/03/18 17:17 Dose: 975 mg Aspirin (Ecotrin) 81 mg PO DAILY [facility] Last Admin: 10/05/18 10:10 Dose: 81 mg Calcitriol (Rocaltrol) 0.25 mcg PO DAILY [facility] Last Admin: 10/05/18 10:11 Dose: 0.25 mcg Clonidine HCl (Catapres) 0.1 mg PO Q12H [facility] Last Admin: 10/05/18 10:10 Dose: 0.1 mg Clopidogrel Bisulfate (Plavix) 75 mg PO DAILY [facility] Last Admin: 10/05/18 10:10 Dose: 75 mg Diphenoxylate HCl/Atropine (Lomotil 0.025-2.5 Mg Tablet) 1 tab PO DAILY PRN PRN Reason: Diarrhea Epoetin Kyler (Procrit) 10,000 unit IV TTS [facility] Famotidine (Pepcid) 20 mg PO DAILY [facility] Last Admin: 10/05/18 10:10 Dose: 20 mg Ferrous Sulfate (Feosol) 325 mg PO DAILY [facility] Last Admin: 10/05/18 10:10 Dose: 325 mg Finasteride (Proscar) 5 mg PO DAILY [facility] Last Admin: 10/05/18 10:10 Dose: 5 mg Heparin Sodium (Porcine) (Heparin) 5,000 units SC Q8 [facility] Last Admin: 10/05/18 14:05 Dose: Not Given Meropenem 500 mg/ Sodium (Chloride) 100 mls @ 100 mls/hr IVPB Q12H [facility]; Protocol Stop: 10/10/18 13:16 Last Admin: 10/05/18 00:48 Dose: 100 mls/hr Phenytoin Sodium (Dilantin) 100 mg PO TID [facility] Last Admin: 10/05/18 14:05 Dose: Not Given Rosuvastatin Calcium (Crestor) 10 mg PO HS [facility] Last Admin: 10/04/18 22:46 Dose: 10 mg - Labs Labs: 10/05/18 07:14 10/05/18 07:14 PT 15.2 SECONDS (9.7-12.2) H 09/30/18 20:51 INR 1.4 09/30/18 20:51 APTT 39 SECONDS (21-34) H 09/30/18 20:51 - Constitutional Appears: No Acute Distress - Head Exam Head Exam: ATRAUMATIC - Eye Exam Eye Exam: EOMI - ENT Exam ENT Exam: Mucous Membranes Moist - Respiratory Exam Respiratory Exam: Clear to Ausculation Bilateral, NORMAL BREATHING PATTERN. absent: Prolonged Expiratory Phase, Rhonchi, Wheezes, Respiratory Distress - GI/Abdominal Exam GI & Abdominal Exam: Soft, Normal Bowel Sounds. absent: Guarding, Rigid, T enderness - Exam Additional comments: right femoral Shiley in place - Extremities Exam Extremities Exam: Normal Inspection. absent: Calf Tenderness, Pedal Edema Additional comments: Left arm AV fistula - Neurological Exam Neurological Exam: Alert, Awake, Oriented x3 - Psychiatric Exam Psychiatric exam: Normal Affect - Skin Skin Exam: Normal Color Assessment and Plan (1) Sepsis Assessment & Plan: - SIRS (fever, leukocytosis, tachypnea, tachyardia), likely secondary to infected permacath - ID consulted, Dr. Nieves * Patient needs to complete two weeks of IV antibiotics - Vascular Surgery consulted, Dr. Hung - permacath placed 08/05/18, AVF left arm 08/09/18 - Suspected fat necrosis in previous admission - will need superficialization of AVF once infection resolved - Blood culture (09/30/18) - ESLB + Klebsiella - repeat blood culture (10/03/18) - negative at 24 hours - - Urine culture (10/01/18) - ESLB + Klebsiella - CXR shows cardiomegaly, ectatic aorta, atherosclerotic calcifications - Negative flu a/b -Meropenem 500mg IVPB q12h (started on 10/03/18) Status: Acute (2) ESRD (end stage renal disease) on dialysis Assessment & Plan: Nephrology Consult: Dr. Prince - patient scheduled to receive dialysis today - Vascular Surgery: Dr. Hung - Shilely cath placed in right groin on 10/03/18 - will need superficialization of AVF once infection resolved Calcitrol 0.25mcg PO daily Status: Acute (3) Hypertension Assessment & Plan: - Furosemide 80mg daily (hold due to hypotension) - Clonidine 0.1mg q12h - Amlodipine 10mg daily (hold due to hypotension) - Losartan 100mg daily (hold due to hypotension) Status: Acute (4) History of coronary artery disease Assessment & Plan: - Patient had a AAA repair 02/2017 - ASA 81mg po daily - Plavix 75mg po daily - Crestor 10mg po HS Status: Acute (5) Hyperlipidemia Assessment & Plan: - Crestor 10mg po HS Status: Acute (6) History of seizure disorder Assessment & Plan: - Phenytoin 100mg po TID Status: Acute (7) History of anemia of chronic disease Assessment & Plan: - Ferrous Sulfate 325mg daily - EPO 10,000 IV TTS Status: Acute (8) History of gastroesophageal reflux (GERD) Assessment & Plan: - Pepcid 20mg BID Status: Acute (9) History of BPH Assessment & Plan: - Continue Finasteride 5mg daily Status: Acute (10) Prophylactic measure Assessment & Plan: DVT: Heparin 5,000u SC q8h and SCDs GI: Pepcid 20mg PO daily Disposition: As per ID, patient will need IV meropenem for 2 weeks in total, which can be done in a [facility]. Patient may not be able to receive a PICC line as per nephro. Will follow up with SW regarding [facility]A placement. All plans and management discussed with Dr. Sin Status: Acute
[2018-10-05] MEDS: Epoetin Alfa 10,000 unit/ml Dialysis IV SCH (15:42)
--- NOTE | 2018-10-05 16:44 | CP.PCM.PN ---
Subjective - Date & Time of Evaluation Date of Evaluation: 10/05/18 Time of Evaluation: 16:42 - Subjective Subjective: seen and examined denies any complaints. no n/v/d/f/c/sob/cp femoral hd cath Objective - Vital Signs/Intake and Output Vital Signs (last 24 hours): Temp Pulse Resp BP Pulse Ox 97.3 F L 94 H 16 158/78 H 98 10/05/18 16:05 10/05/18 16:05 10/05/18 16:05 10/05/18 16:05 10/05/18 16:05 Intake and Output: 10/05/18 10/05/18 06:59 18:59 Intake Total 200 Output Total 0 Balance 200 - Medications Medications: Current Medications Acetaminophen (Tylenol 325mg Tab) 975 mg PO ONCE PRN PRN Reason: Fever >100.4 F Last Admin: 10/03/18 17:17 Dose: 975 mg Aspirin (Ecotrin) 81 mg PO DAILY [facility] Last Admin: 10/05/18 10:10 Dose: 81 mg Calcitriol (Rocaltrol) 0.25 mcg PO DAILY [facility] Last Admin: 10/05/18 10:11 Dose: 0.25 mcg Clonidine HCl (Catapres) 0.1 mg PO Q12H [facility] Last Admin: 10/05/18 10:10 Dose: 0.1 mg Clopidogrel Bisulfate (Plavix) 75 mg PO DAILY [facility] Last Admin: 10/05/18 10:10 Dose: 75 mg Diphenoxylate HCl/Atropine (Lomotil 0.025-2.5 Mg Tablet) 1 tab PO DAILY PRN PRN Reason: Diarrhea Epoetin Kyler (Procrit) 10,000 unit IV TTS [facility] Last Admin: 10/05/18 15:42 Dose: 10,000 unit Famotidine (Pepcid) 20 mg PO DAILY [facility] Last Admin: 10/05/18 10:10 Dose: 20 mg Ferrous Sulfate (Feosol) 325 mg PO DAILY [facility] Last Admin: 10/05/18 10:10 Dose: 325 mg Finasteride (Proscar) 5 mg PO DAILY [facility] Last Admin: 10/05/18 10:10 Dose: 5 mg Heparin Sodium (Porcine) (Heparin) 5,000 units SC Q8 [facility] Last Admin: 10/05/18 14:05 Dose: Not Given Meropenem 500 mg/ Sodium (Chloride) 100 mls @ 100 mls/hr IVPB Q12H [facility]; Protocol Stop: 10/10/18 13:16 Last Admin: 10/05/18 00:48 Dose: 100 mls/hr Phenytoin Sodium (Dilantin) 100 mg PO TID [facility] Last Admin: 10/05/18 14:05 Dose: Not Given Rosuvastatin Calcium (Crestor) 10 mg PO HS [facility] Last Admin: 10/04/18 22:46 Dose: 10 mg - Labs Labs: 10/05/18 07:14 10/05/18 07:14 PT 15.2 SECONDS (9.7-12.2) H 09/30/18 20:51 INR 1.4 09/30/18 20:51 APTT 39 SECONDS (21-34) H 09/30/18 20:51 - Constitutional Appears: Non-toxic, No Acute Distress, Chronically Ill - Head Exam Head Exam: NORMAL INSPECTION, NORMOCEPHALIC - Eye Exam Eye Exam: Normal appearance Pupil Exam: PERRL - ENT Exam ENT Exam: Mucous Membranes Moist, Normal Exam - Neck Exam Neck Exam: Full ROM, Normal Inspection - Respiratory Exam Respiratory Exam: NORMAL BREATHING PATTERN - Cardiovascular Exam Cardiovascular Exam: RRR - GI/Abdominal Exam GI & Abdominal Exam: Distended, Soft, Normal Bowel Sounds - Extremities Exam Extremities Exam: Normal Inspection (lue avf thrill+) - Neurological Exam Neurological Exam: Alert, Awake, Oriented x3 Assessment and Plan (1) Bacteremia Status: Acute (2) ESRD (end stage renal disease) on dialysis Status: Acute (3) History of anemia of chronic disease Status: Acute - Assessment and Plan (Free Text) Assessment: hd today and tts blood cx negative, permcath placment when cleared by ID av access per vascular
[2018-10-06] MEDS: Meropenem 500 MG in Sodium Chloride 0.9% 100 ML IVPB SCH ×2 (02:10→14:12)
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
[2018-10-06] MEDS ORDERED: ceFAZolin 1 gm in NS 1 GM/100 ML BAG IVPB ONE (07:23)
[2018-10-06] MEDS ORDERED: HEPARIN-NS 5,000 UNITS/500 ML 5,000 UNIT/500 ML BAG IV ONE (07:24)
[2018-10-06 07:27] LABS: BASO # 0.1 K/uL (0.0-0.2); BASO % 0.7 % (0.0-2.0); EOS # 0.1 K/uL (0.0-0.7); EOS % 0.6 % (0.0-4.0); HEMOGLOBIN 9.7 g/dL (12.0-18.0); LYMPH # 1.5 K/uL (1.0-4.3); LYMPH % 11.4 % (20.0-40.0); MEAN CORPUSCULAR HEMOGLOBIN 26.6 pg (27.0-31.0); MEAN CORPUSCULAR HGB CONC 32.4 g/dL (33.0-37.0); MEAN PLATELET VOLUME 9.3 fL (7.2-11.7); MONO # 2.1 K/uL (0.0-0.8); NEUT # 9.3 K/uL (1.8-7.0); NEUT % 71.3 % (50.0-75.0); RBC 3.65 Mil/uL (4.40-5.90); WHITE BLOOD COUNT 13.1 K/uL (4.8-10.8)
[2018-10-06 07:38] LABS: INR 1.2; PROTHROMBIN TIME 13.3 SECONDS (9.7-12.2)
[2018-10-06 07:48] LABS: ALB/GLOB RATIO 0.9 (1.0-2.1); CALCIUM 7.9 mg/dl (8.6-10.4)
--- NOTE | 2018-10-06 08:52 | CP.PCM.PN ---
Subjective - Date & Time of Evaluation Date of Evaluation: 10/06/18 Time of Evaluation: 08:50 - Subjective Subjective: for OR today for change in catheter no distress no complaints poor historian cannot obtain ROS due to above Objective - Vital Signs/Intake and Output Vital Signs (last 24 hours): Temp Pulse Resp BP Pulse Ox 98.2 F 103 H 20 175/83 H 98 10/06/18 08:32 10/06/18 08:32 10/06/18 08:32 10/06/18 08:32 10/06/18 08:32 Intake and Output: 10/06/18 10/06/18 06:59 18:59 Intake Total 100 Balance 100 - Medications Medications: Current Medications Acetaminophen (Tylenol 325mg Tab) 975 mg PO ONCE PRN PRN Reason: Fever >100.4 F Last Admin: 10/03/18 17:17 Dose: 975 mg Amlodipine Besylate (Norvasc) 10 mg PO DAILY [facility] Aspirin (Ecotrin) 81 mg PO DAILY [facility] Last Admin: 10/05/18 10:10 Dose: 81 mg Calcitriol (Rocaltrol) 0.25 mcg PO DAILY [facility] Last Admin: 10/05/18 10:11 Dose: 0.25 mcg Clonidine HCl (Catapres) 0.1 mg PO Q12H [facility] Last Admin: 10/05/18 21:31 Dose: 0.1 mg Clopidogrel Bisulfate (Plavix) 75 mg PO DAILY [facility] Last Admin: 10/05/18 10:10 Dose: 75 mg Diphenoxylate HCl/Atropine (Lomotil 0.025-2.5 Mg Tablet) 1 tab PO DAILY PRN PRN Reason: Diarrhea Epoetin Kyler (Procrit) 10,000 unit IV TTS [facility] Last Admin: 10/05/18 15:42 Dose: 10,000 unit Famotidine (Pepcid) 20 mg PO DAILY [facility] Last Admin: 10/05/18 10:10 Dose: 20 mg Ferrous Sulfate (Feosol) 325 mg PO DAILY [facility] Last Admin: 10/05/18 10:10 Dose: 325 mg Finasteride (Proscar) 5 mg PO DAILY [facility] Last Admin: 10/05/18 10:10 Dose: 5 mg Heparin Sodium (Porcine) (Heparin) 5,000 units SC Q8 [facility] Last Admin: 10/06/18 06:00 Dose: Not Given Meropenem 500 mg/ Sodium (Chloride) 100 mls @ 100 mls/hr IVPB Q12H [facility]; Protocol Stop: 10/10/18 13:16 Last Admin: 10/06/18 02:10 Dose: 100 mls/hr Phenytoin Sodium (Dilantin) 100 mg PO TID [facility] Last Admin: 10/05/18 17:27 Dose: 100 mg Rosuvastatin Calcium (Crestor) 10 mg PO HS [facility] Last Admin: 10/05/18 21:30 Dose: 10 mg - Labs Labs: 10/06/18 07:13 10/06/18 07:13 PT 13.3 SECONDS (9.7-12.2) H 10/06/18 07:13 INR 1.2 10/06/18 07:13 APTT 30 SECONDS (21-34) 10/06/18 07:13 - Constitutional Appears: Non-toxic, Chronically Ill - Head Exam Head Exam: ATRAUMATIC, NORMAL INSPECTION - Eye Exam Eye Exam: EOMI - ENT Exam ENT Exam: Mucous Membranes Moist - Neck Exam Neck Exam: Full ROM. absent: Lymphadenopathy - Respiratory Exam Respiratory Exam: NORMAL BREATHING PATTERN. absent: Accessory Muscle Use - Cardiovascular Exam Cardiovascular Exam: REGULAR RHYTHM. absent: Rubs - GI/Abdominal Exam GI & Abdominal Exam: Soft. absent: Tenderness - Extremities Exam Extremities Exam: absent: Pedal Edema - Neurological Exam Neurological Exam: Alert. absent: Oriented x3 Assessment and Plan - Assessment and Plan (Free Text) Assessment: esrd bacteremia on AB HD in am for access surgery today
[2018-10-06] MEDS ORDERED: Propofol 10 mg/ml Inj (20 ML) ONE (09:49)
[2018-10-06] MEDS ORDERED: Lidocaine Hydrochloride 5 ML INJ ONE (09:50)
[2018-10-06] MEDS ORDERED: ePHEDrine 50 mg/ml Inj ONE (10:10)
[2018-10-06] MEDS ORDERED: Phenylephrine 10 mg/ml Inj ONE (10:13)
[2018-10-06] MEDS ORDERED: Etomidate 20 mg/10ml Inj IV ONE (10:15)
[2018-10-06] MEDS ORDERED: HYDROmorphone 0.5 mg/0.5 ml ISec IVP PRN (11:52)
--- NOTE | 2018-10-06 11:54 | PCM.SURG1 ---
Surgeon's Initial Post Op Note - Surgeon's Notes Surgeon: Dr. Hung Sealing And Canceling Machine Operator: Linda PGY2 Type of Anesthesia: General LMA Anesthesia Administered By: Dr. Knox Pre-Operative Diagnosis: End Stage Renal Disease Operative Findings: See operative report. Good arterialized Left Brachiobasilic fistula. Right Femoral Dialysis Catheter removed. Post-Operative Diagnosis: same Operation Performed: Right IJ Permacath placement. Left Brachiobasilic Fistula Revision/Superficializiation. Specimen/Specimens Removed: None Estimated Blood Loss: EBL {In ML}: 20 Blood Products Given: N/A Drains Used: No Drains Post-Op Condition: Good Date of Surgery/Procedure: 10/06/18 Time of Surgery/Procedure: 11:54
[2018-10-06] MEDS ORDERED: Oxycodone/Acetaminophen 5/325 mg Tab PO PRN (11:55)
--- NOTE | 2018-10-06 11:59 | RAD ---
Date of service: 10/06/2018 PROCEDURE: Intraoperative Fluoroscopy. HISTORY: RENAL FAILURE FINDINGS: Fluoroscopic assistance was provided for PermCath placement. Total fluoroscopic time (continuous mode) utilized during the procedure 62.9 seconds. Dose report: DLP [id number] (mGy/m2) . Please refer to the operative report from ALFREDO Garzon.
--- NOTE | 2018-10-06 13:46 | RAD ---
Date of service: 10/06/2018 HISTORY: Right IJ Permacath placement COMPARISON: 09/30/2018 FINDINGS: LUNGS: No active pulmonary disease. PLEURA: No significant pleural effusion identified, no pneumothorax apparent. CARDIOVASCULAR: No aortic atherosclerotic calcification present. Normal cardiac size. No congestive change. Right tunneled central venous dialysis catheter noted. OSSEOUS STRUCTURES: Guthrie rods noted in thoracic spine VISUALIZED UPPER ABDOMEN: Normal. OTHER FINDINGS: None. IMPRESSION: No active disease.
--- NOTE | 2018-10-06 15:39 | CP.PCM.PN ---
Subjective - Date & Time of Evaluation Date of Evaluation: 10/06/18 Time of Evaluation: 08:00 - Subjective Subjective: events noted IV rx renewed Objective - Vital Signs/Intake and Output Vital Signs (last 24 hours): Temp Pulse Resp BP Pulse Ox 98.4 F 106 H 18 149/80 100 10/06/18 13:45 10/06/18 13:45 10/06/18 13:45 10/06/18 13:45 10/06/18 13:45 Intake and Output: 10/06/18 10/06/18 06:59 18:59 Intake Total 100 950 Balance 100 950 - Medications Medications: Current Medications Acetaminophen (Tylenol 325mg Tab) 975 mg PO ONCE PRN PRN Reason: Fever >100.4 F Last Admin: 10/03/18 17:17 Dose: 975 mg Amlodipine Besylate (Norvasc) 10 mg PO DAILY [facility] Last Admin: 10/06/18 09:37 Dose: Not Given Aspirin (Ecotrin) 81 mg PO DAILY [facility] Last Admin: 10/06/18 09:37 Dose: Not Given Calcitriol (Rocaltrol) 0.25 mcg PO DAILY [facility] Last Admin: 10/06/18 09:38 Dose: Not Given Clonidine HCl (Catapres) 0.1 mg PO Q12H [facility] Last Admin: 10/06/18 09:37 Dose: Not Given Clopidogrel Bisulfate (Plavix) 75 mg PO DAILY [facility] Last Admin: 10/06/18 09:37 Dose: Not Given Diphenoxylate HCl/Atropine (Lomotil 0.025-2.5 Mg Tablet) 1 tab PO DAILY PRN PRN Reason: Diarrhea Epoetin Kyler (Procrit) 10,000 unit IV TTS [facility] Last Admin: 10/05/18 15:42 Dose: 10,000 unit Famotidine (Pepcid) 20 mg PO DAILY [facility] Last Admin: 10/06/18 09:37 Dose: Not Given Ferrous Sulfate (Feosol) 325 mg PO DAILY [facility] Last Admin: 10/06/18 09:37 Dose: Not Given Finasteride (Proscar) 5 mg PO DAILY [facility] Last Admin: 10/06/18 09:38 Dose: Not Given Heparin Sodium (Porcine) (Heparin) 5,000 units SC Q8 [facility] Last Admin: 10/06/18 14:13 Dose: 5,000 units Meropenem 500 mg/ Sodium (Chloride) 100 mls @ 100 mls/hr IVPB Q12H [facility]; Protocol Stop: 10/10/18 13:16 Last Admin: 10/06/18 14:12 Dose: 100 mls/hr Oxycodone/Acetaminophen (Percocet 5/325 Mg Tab) 1 tab PO Q6H PRN PRN Reason: Pain, moderate (4-7) Stop: 10/09/18 11:56 Phenytoin Sodium (Dilantin) 100 mg PO TID [facility] Last Admin: 10/06/18 14:13 Dose: 100 mg Rosuvastatin Calcium (Crestor) 10 mg PO HS [facility] Last Admin: 10/05/18 21:30 Dose: 10 mg - Labs Labs: 10/06/18 07:13 10/06/18 07:13 PT 13.3 SECONDS (9.7-12.2) H 10/06/18 07:13 INR 1.2 10/06/18 07:13 APTT 30 SECONDS (21-34) 10/06/18 07:13 - Constitutional Appears: Non-toxic, No Acute Distress, Chronically Ill - Head Exam Head Exam: NORMOCEPHALIC - Eye Exam Eye Exam: absent: Scleral icterus - ENT Exam ENT Exam: Mucous Membranes Dry - Neck Exam Neck Exam: absent: Lymphadenopathy - Respiratory Exam Respiratory Exam: Decreased Breath Sounds - Cardiovascular Exam Cardiovascular Exam: REGULAR RHYTHM - GI/Abdominal Exam GI & Abdominal Exam: Distended, Soft - Rectal Exam Rectal Exam: Deferred - Exam Exam: NORMAL INSPECTION - Extremities Exam Extremities Exam: Pedal Edema - Back Exam Back Exam: absent: CVA tenderness (L), CVA tenderness (R) - Neurological Exam Neurological Exam: Alert, Awake, CN II-XII Intact Assessment and Plan (1) Bacteremia Status: Acute (2) ESRD (end stage renal disease) on dialysis Status: Acute (3) Hypertensive chronic kidney disease with stage 5 chronic kidney disease or end stage renal disease Status: Acute (4) Line sepsis Status: Acute (5) PAD (peripheral artery disease) Status: Acute (6) Sepsis Status: Acute (7) Chronic anemia Status: Acute (8) End stage renal disease Status: Acute (9) Local infection due to Port-A-Cath Status: Acute (10) UTI (urinary tract infection) Status: Acute (11) Fever Status: Acute - Assessment and Plan (Free Text) Assessment: cont IV rx x 14 days from 1st neg blood c/s
[2018-10-07] MEDS: Meropenem 500 MG in Sodium Chloride 0.9% 100 ML IVPB SCH ×2 (01:00→13:57)
--- NOTE | 2018-10-07 06:35 | OP ---
PROCEDURE DATE: 10/06/2018 PREOPERATIVE DIAGNOSIS: Renal failure. POSTOPERATIVE DIAGNOSIS: Renal failure. PROCEDURES CARRIED OUT: 1. Placement of Perm-A-Cath in the right subclavian vein with C-arm fluoroscopy, ultrasound-guided puncture, and micropuncture technique. 2. Revision of arteriovenous fistula, left arm with creation of basilic vein transposition. SURGEON: Sami Hung Jr., MD DOUBLE REAMER OPERATOR: Ray Mckeon DO ANESTHESIOLOGIST: Dr. Knox. TYPE OF ANESTHESIA: LMA. INDICATIONS: A 73-year-old man with renal insufficiency, now requiring dialysis, had a catheter inserted previously, and this was removed. Because he had episode of positive blood culture and Klebsiella felt to be due to the urine as both the urine culture and blood culture matched up. The previous catheter had to be removed. Now, his blood culture is negative, and a new catheter is being inserted. DESCRIPTION OF PROCEDURE: Initially, we attempted to use a jugular vein, but we were not able to negotiate. The previous portion was occluded. We then went to the subclavian vein on the right side and inserted the catheter uneventfully. After this had been done, we then prepped and draped the patient again. Compared to the left arm, we had a previous non-transposed basilic vein. We dissected this out. We could only go about three quarters away up the arm because of large branches and because of the fact that the basilic vein actually at this point became atretic. So, we left the large branch going deep into the arm, opened and elevated it. After hemostasis obtained, the wound was closed with multiple layers and the skin was closed with skin clips. Blood loss for both procedures was less than 50 mL. OPERATION CARRIED OUT: 1. Perm-A-Cath, right subclavian vein with C-arm fluoroscopy and ultrasound-guided puncture. 2. Revision of arteriovenous fistula, left arm with creation of basilic vein fistula. Sami Hung Jr., MD cc: MD Arthur Mott MD
[2018-10-07 07:07] LABS: BASO # 0.1 K/uL (0.0-0.2); BASO % 0.4 % (0.0-2.0); EOS # 0.2 K/uL (0.0-0.7); EOS % 1.5 % (0.0-4.0); HEMOGLOBIN 9.1 g/dL (12.0-18.0); LYMPH # 1.3 K/uL (1.0-4.3); LYMPH % 9.9 % (20.0-40.0); MEAN CELL VOLUME 83.1 fL (80.0-94.0); MEAN CORPUSCULAR HEMOGLOBIN 26.8 pg (27.0-31.0); MEAN CORPUSCULAR HGB CONC 32.2 g/dL (33.0-37.0); MEAN PLATELET VOLUME 9.2 fL (7.2-11.7); MONO # 1.6 K/uL (0.0-0.8); MONO % 12.9 % (0.0-10.0); NEUT # 9.6 K/uL (1.8-7.0); NEUT % 75.3 % (50.0-75.0); PLATELET COUNT 402 K/uL (130-400); RED CELL DISTRIBUTION WIDTH 16.1 % (11.5-14.5); WHITE BLOOD COUNT 12.7 K/uL (4.8-10.8)
--- NOTE | 2018-10-07 07:57 | CP.PCM.PN ---
Subjective - Date & Time of Evaluation Date of Evaluation: 10/07/18 Time of Evaluation: 06:50 - Subjective Subjective: Vascular Surgery Progress note. Dr. Hung Pt seen and examined at bedside. No acute events overnight. No N/V/D. No F/C. No new complaints. Pain well tolerated. Objective - Vital Signs/Intake and Output Vital Signs (last 24 hours): Temp Pulse Resp BP Pulse Ox 97.9 F 107 H 20 143/74 97 10/07/18 00:00 10/07/18 00:00 10/07/18 00:00 10/07/18 00:00 10/07/18 00:00 Intake and Output: 10/07/18 10/07/18 06:59 18:59 Intake Total 300 Balance 300 - Medications Medications: Current Medications Acetaminophen (Tylenol 325mg Tab) 975 mg PO ONCE PRN PRN Reason: Fever >100.4 F Last Admin: 10/03/18 17:17 Dose: 975 mg Amlodipine Besylate (Norvasc) 10 mg PO DAILY [facility] Last Admin: 10/06/18 09:37 Dose: Not Given Aspirin (Ecotrin) 81 mg PO DAILY [facility] Last Admin: 10/06/18 09:37 Dose: Not Given Calcitriol (Rocaltrol) 0.25 mcg PO DAILY [facility] Last Admin: 10/06/18 09:38 Dose: Not Given Clonidine HCl (Catapres) 0.1 mg PO Q12H [facility] Last Admin: 10/06/18 22:12 Dose: 0.1 mg Clopidogrel Bisulfate (Plavix) 75 mg PO DAILY [facility] Last Admin: 10/06/18 09:37 Dose: Not Given Diphenoxylate HCl/Atropine (Lomotil 0.025-2.5 Mg Tablet) 1 tab PO DAILY PRN PRN Reason: Diarrhea Epoetin Kyler (Procrit) 10,000 unit IV TTS [facility] Last Admin: 10/05/18 15:42 Dose: 10,000 unit Famotidine (Pepcid) 20 mg PO DAILY [facility] Last Admin: 10/06/18 09:37 Dose: Not Given Ferrous Sulfate (Feosol) 325 mg PO DAILY [facility] Last Admin: 10/06/18 09:37 Dose: Not Given Finasteride (Proscar) 5 mg PO DAILY [facility] Last Admin: 10/06/18 09:38 Dose: Not Given Heparin Sodium (Porcine) (Heparin) 5,000 units SC Q8 [facility] Last Admin: 10/07/18 05:34 Dose: 5,000 units Meropenem 500 mg/ Sodium (Chloride) 100 mls @ 100 mls/hr IVPB Q12H [facility]; Protocol Stop: 10/10/18 13:16 Last Admin: 10/07/18 01:00 Dose: 100 mls/hr Oxycodone/Acetaminophen (Percocet 5/325 Mg Tab) 1 tab PO Q6H PRN PRN Reason: Pain, moderate (4-7) Stop: 10/09/18 11:56 Phenytoin Sodium (Dilantin) 100 mg PO TID [facility] Last Admin: 10/06/18 18:16 Dose: 100 mg Rosuvastatin Calcium (Crestor) 10 mg PO HS [facility] Last Admin: 10/06/18 22:12 Dose: 10 mg - Labs Labs: 10/07/18 06:53 10/06/18 07:13 PT 13.3 SECONDS (9.7-12.2) H 10/06/18 07:13 INR 1.2 10/06/18 07:13 APTT 30 SECONDS (21-34) 10/06/18 07:13 - Constitutional Appears: Well, Non-toxic, No Acute Distress - Head Exam Head Exam: ATRAUMATIC, NORMAL INSPECTION, NORMOCEPHALIC - Eye Exam Eye Exam: EOMI, Normal appearance. absent: Scleral icterus - ENT Exam ENT Exam: Mucous Membranes Moist - Respiratory Exam Respiratory Exam: Clear to Ausculation Bilateral, NORMAL BREATHING PATTERN. absent: Accessory Muscle Use, Respiratory Distress - Cardiovascular Exam Cardiovascular Exam: absent: JVD - Extremities Exam Additional comments: Left AVF with good thrill. Dressing clean, dry and intact - Neurological Exam Neurological Exam: Alert, Awake, Oriented x3 - Skin Skin Exam: Dry, Intact, Normal Color, Warm Assessment and Plan - Assessment and Plan (Free Text) Assessment: 73yo M ESRD s/p R IJ Permacath and L Brachiobasilic Fistula revision. POD1 Plan: - Patient may be discharge at the discretion of the primary team - Keep dressing clean and dry - Follow up with Dr. Hung in 7-10 days. Call for appointment - Pain management - Use R IJ Permacath for HD for now Further recs as per Dr. Abhilash Mckeon PGY2 surgery
[2018-10-07 08:25] LABS: LYMPHOCYTE 6 % (20-40); MONOCYTE 10 % (0-10); NEUTROPHIL 84 % (50-75); TOTAL CELLS COUNTED 100
[2018-10-07 08:26] LABS: ANISOCYTOSIS SLIGHT; HYPOCHROMIC SLIGHT; PLATELET ESTIMATE NORMAL (NORMAL); POLYCHROMIC SLIGHT; TARGET CELLS SLIGHT
--- NOTE | 2018-10-07 08:41 | CP.PCM.PN ---
Subjective - Date & Time of Evaluation Date of Evaluation: 10/07/18 Time of Evaluation: 08:25 - Subjective Subjective: Medicine progress note ( Dr. Sin's service) Patient was seen and examined at bedside while resting comfortably in bed with no acute stress. Patient states that he is feeling well and has no complaints. Objective - Vital Signs/Intake and Output Vital Signs (last 24 hours): Temp Pulse Resp BP Pulse Ox 97.9 F 107 H 20 143/74 97 10/07/18 00:00 10/07/18 00:00 10/07/18 00:00 10/07/18 00:00 10/07/18 00:00 Intake and Output: 10/07/18 10/07/18 06:59 18:59 Intake Total 300 Balance 300 - Medications Medications: Current Medications Acetaminophen (Tylenol 325mg Tab) 975 mg PO ONCE PRN PRN Reason: Fever >100.4 F Last Admin: 10/03/18 17:17 Dose: 975 mg Amlodipine Besylate (Norvasc) 10 mg PO DAILY [facility] Last Admin: 10/06/18 09:37 Dose: Not Given Aspirin (Ecotrin) 81 mg PO DAILY [facility] Last Admin: 10/06/18 09:37 Dose: Not Given Calcitriol (Rocaltrol) 0.25 mcg PO DAILY [facility] Last Admin: 10/06/18 09:38 Dose: Not Given Clonidine HCl (Catapres) 0.1 mg PO Q12H [facility] Last Admin: 10/06/18 22:12 Dose: 0.1 mg Clopidogrel Bisulfate (Plavix) 75 mg PO DAILY [facility] Last Admin: 10/06/18 09:37 Dose: Not Given Diphenoxylate HCl/Atropine (Lomotil 0.025-2.5 Mg Tablet) 1 tab PO DAILY PRN PRN Reason: Diarrhea Epoetin Kyler (Procrit) 10,000 unit IV TTS [facility] Last Admin: 10/05/18 15:42 Dose: 10,000 unit Famotidine (Pepcid) 20 mg PO DAILY [facility] Last Admin: 10/06/18 09:37 Dose: Not Given Ferrous Sulfate (Feosol) 325 mg PO DAILY [facility] Last Admin: 10/06/18 09:37 Dose: Not Given Finasteride (Proscar) 5 mg PO DAILY [facility] Last Admin: 10/06/18 09:38 Dose: Not Given Heparin Sodium (Porcine) (Heparin) 5,000 units SC Q8 [facility] Last Admin: 10/07/18 05:34 Dose: 5,000 units Meropenem 500 mg/ Sodium (Chloride) 100 mls @ 100 mls/hr IVPB Q12H [facility]; Protocol Stop: 10/10/18 13:16 Last Admin: 10/07/18 01:00 Dose: 100 mls/hr Oxycodone/Acetaminophen (Percocet 5/325 Mg Tab) 1 tab PO Q6H PRN PRN Reason: Pain, moderate (4-7) Stop: 10/09/18 11:56 Phenytoin Sodium (Dilantin) 100 mg PO TID [facility] Last Admin: 10/06/18 18:16 Dose: 100 mg Rosuvastatin Calcium (Crestor) 10 mg PO HS [facility] Last Admin: 10/06/18 22:12 Dose: 10 mg - Labs Labs: 10/07/18 06:53 10/06/18 07:13 PT 13.3 SECONDS (9.7-12.2) H 10/06/18 07:13 INR 1.2 10/06/18 07:13 APTT 30 SECONDS (21-34) 10/06/18 07:13 - Constitutional Appears: No Acute Distress - Head Exam Head Exam: ATRAUMATIC - Eye Exam Eye Exam: EOMI - ENT Exam ENT Exam: Mucous Membranes Moist - Neck Exam Additional comments: Right IJ permacath placed 10/06/17 - Respiratory Exam Respiratory Exam: Clear to Ausculation Bilateral, NORMAL BREATHING PATTERN. a bsent: Prolonged Expiratory Phase, Rhonchi, Wheezes, Respiratory Distress - Cardiovascular Exam Cardiovascular Exam: REGULAR RHYTHM, +S1, +S2 - GI/Abdominal Exam GI & Abdominal Exam: Soft, Normal Bowel Sounds. absent: Distended, Firm, Guarding, Rigid, Tenderness - Exam Additional comments: right femoral Shiley removed 10/06/17 - Extremities Exam Extremities Exam: absent: Pedal Edema Additional comments: Left forearm AVF Bruit is audible - Neurological Exam Neurological Exam: Alert, Awake, Oriented x3 - Psychiatric Exam Psychiatric exam: Normal Affect - Skin Skin Exam: Normal Color Assessment and Plan (1) Sepsis Assessment & Plan: SIRS (fever, leukocytosis, tachypnea, tachyardia), likely secondary to infected permacath - ID consulted, Dr. Nieves * Patient needs to complete two weeks of IV antibiotics - Vascular Surgery consulted, Dr. Hung - permacath placed 08/05/18 ( removed), AVF left arm 08/09/18 - Right IJ permacath placed 10/06/17 - Suspected fat necrosis in previous admission - will need superficialization of AVF once infection resolved - Blood culture (09/30/18) - ESLB + Klebsiella - repeat blood culture (10/03/18) - negative at 4 days - - Urine culture (10/01/18) - ESLB + Klebsiella - CXR shows cardiomegaly, ectatic aorta, atherosclerotic calcifications - Negative flu a/b -Meropenem 500mg IVPB q12h (started on 10/03/18) Status: Acute (2) ESRD (end stage renal disease) on dialysis Assessment & Plan: Nephrology Consult: Dr. Prince - patient scheduled to receive dialysis today -HD TTS - Vascular Surgery: Dr. Hung - Shilely cath placed in right groin on 10/03/18 , removed - Right IJ permacath placed 10/06/17 - will need superficialization of AVF once infection resolved Calcitrol 0.25mcg PO daily Status: Acute (3) Hypertension Assessment & Plan: - Furosemide 80mg daily (hold due to hypotension) - Clonidine 0.1mg q12h - Amlodipine 10mg daily - Losartan 100mg daily (hold due to hypotension) Status: Acute (4) History of coronary artery disease Assessment & Plan: - Patient had a AAA repair 02/2017 - ASA 81mg po daily - Plavix 75mg po daily - Crestor 10mg po HS Status: Acute (5) Hyperlipidemia Assessment & Plan: - Crestor 10mg po HS Status: Acute (6) History of seizure disorder Assessment & Plan: - Phenytoin 100mg po TID Status: Acute (7) History of anemia of chronic disease Assessment & Plan: - EPO 10,000 IV TTS Ferrlecit 125mg IV daily Status: Acute (8) History of gastroesophageal reflux (GERD) Assessment & Plan: - Pepcid 20mg BID Status: Acute (9) History of BPH Assessment & Plan: - Continue Finasteride 5mg daily Status: Acute (10) Prophylactic measure Assessment & Plan: DVT: Heparin 5,000u SC q8h and SCDs GI: Pepcid 20mg PO daily Disposition: As per ID, patient will need IV meropenem for 2 weeks in total, which can be done in a [facility]. Patient may not be able to receive a PICC line or midline as per nephro, therefore [facility] is not an option All plans and management discussed with Dr. Sin Status: Acute
--- NOTE | 2018-10-07 11:04 | CP.PCM.PN ---
Subjective - Date & Time of Evaluation Date of Evaluation: 10/07/18 Time of Evaluation: 11:02 - Subjective Subjective: Seen at dialysis + urine/ blood cultures noted- on IV ABs s/p AV fistula creation in left arm- has bruit to UF 2000ml with HD lethargic now- not conversing Objective - Vital Signs/Intake and Output Vital Signs (last 24 hours): Temp Pulse Resp BP Pulse Ox 98.1 F 98 H 16 181/88 H 100 10/07/18 09:10 10/07/18 09:10 10/07/18 09:10 10/07/18 09:55 10/07/18 07:00 Intake and Output: 10/07/18 10/07/18 06:59 18:59 Intake Total 300 Balance 300 - Medications Medications: Current Medications Acetaminophen (Tylenol 325mg Tab) 975 mg PO ONCE PRN PRN Reason: Fever >100.4 F Last Admin: 10/03/18 17:17 Dose: 975 mg Amlodipine Besylate (Norvasc) 10 mg PO DAILY [facility] Last Admin: 10/07/18 09:26 Dose: Not Given Aspirin (Ecotrin) 81 mg PO DAILY [facility] Last Admin: 10/07/18 09:25 Dose: Not Given Calcitriol (Rocaltrol) 0.25 mcg PO DAILY [facility] Last Admin: 10/07/18 09:26 Dose: Not Given Clonidine HCl (Catapres) 0.1 mg PO Q12H [facility] Last Admin: 10/07/18 09:25 Dose: Not Given Clopidogrel Bisulfate (Plavix) 75 mg PO DAILY [facility] Last Admin: 10/07/18 09:26 Dose: Not Given Diphenoxylate HCl/Atropine (Lomotil 0.025-2.5 Mg Tablet) 1 tab PO DAILY PRN PRN Reason: Diarrhea Epoetin Kyler (Procrit) 10,000 unit IV TTS [facility] Last Admin: 10/05/18 15:42 Dose: 10,000 unit Famotidine (Pepcid) 20 mg PO DAILY [facility] Last Admin: 10/07/18 09:26 Dose: Not Given Ferrous Sulfate (Feosol) 325 mg PO DAILY [facility] Last Admin: 10/07/18 09:26 Dose: Not Given Finasteride (Proscar) 5 mg PO DAILY [facility] Last Admin: 10/07/18 09:26 Dose: Not Given Heparin Sodium (Porcine) (Heparin) 5,000 units SC Q8 [facility] Last Admin: 10/07/18 05:34 Dose: 5,000 units Meropenem 500 mg/ Sodium (Chloride) 100 mls @ 100 mls/hr IVPB Q12H [facility]; Protocol Stop: 10/10/18 13:16 Last Admin: 10/07/18 01:00 Dose: 100 mls/hr Oxycodone/Acetaminophen (Percocet 5/325 Mg Tab) 1 tab PO Q6H PRN PRN Reason: Pain, moderate (4-7) Stop: 10/09/18 11:56 Phenytoin Sodium (Dilantin) 100 mg PO TID [facility] Last Admin: 10/07/18 09:25 Dose: Not Given Rosuvastatin Calcium (Crestor) 10 mg PO HS [facility] Last Admin: 10/06/18 22:12 Dose: 10 mg - Labs Labs: 10/07/18 06:53 10/06/18 07:13 PT 13.3 SECONDS (9.7-12.2) H 10/06/18 07:13 INR 1.2 10/06/18 07:13 APTT 30 SECONDS (21-34) 10/06/18 07:13 - Constitutional Appears: No Acute Distress, Confused, Chronically Ill - Head Exam Head Exam: ATRAUMATIC, NORMAL INSPECTION - Eye Exam Eye Exam: EOMI, Normal appearance - Neck Exam Neck Exam: Normal Inspection. absent: Tenderness - Respiratory Exam Respiratory Exam: Clear to Ausculation Bilateral, NORMAL BREATHING PATTERN - Cardiovascular Exam Cardiovascular Exam: REGULAR RHYTHM, +S1 - GI/Abdominal Exam GI & Abdominal Exam: Soft. absent: Tenderness - Extremities Exam Extremities Exam: Normal Inspection. absent: Tenderness - Neurological Exam Neurological Exam: Altered - Skin Skin Exam: Dry, Warm Assessment and Plan (1) Line sepsis Status: Acute (2) PAD (peripheral artery disease) Status: Acute (3) Bacteremia Status: Acute (4) Hypertensive chronic kidney disease with stage 5 chronic kidney disease or end stage renal disease Status: Acute (5) ESRD (end stage renal disease) on dialysis Status: Acute - Assessment and Plan (Free Text) Plan: IV ABs Add IV Fe increase clonidine dose dialysis TTS
[2018-10-07] MEDS: Ferric Sodium Gluconat Complex 62.5 mg/5 ml Vial IVPB SCH (11:46)
[2018-10-07] MEDS: Epoetin Alfa 10,000 unit/ml Dialysis IV SCH (12:33)
[2018-10-08] MEDS: Meropenem 500 MG in Sodium Chloride 0.9% 100 ML IVPB SCH ×2 (00:34→13:00)
--- NOTE | 2018-10-08 10:19 | CP.PCM.PN ---
Subjective - Date & Time of Evaluation Date of Evaluation: 10/08/18 Time of Evaluation: 10:16 - Subjective Subjective: PGY2 Medicine Note for Dr. Sin Patient seen and examined this morning at bedside. No acute events overnight. Patient is resting comfortably in bed without any complaints. He is eating breakfast stating he is feeling well. Objective - Vital Signs/Intake and Output Vital Signs (last 24 hours): Temp Pulse Resp BP Pulse Ox 97.4 F L 100 H 20 143/74 100 10/08/18 08:54 10/08/18 08:54 10/08/18 08:54 10/08/18 08:54 10/08/18 08:54 Intake and Output: 10/08/18 10/08/18 06:59 18:59 Intake Total 400 Balance 400 - Medications Medications: Current Medications Acetaminophen (Tylenol 325mg Tab) 975 mg PO ONCE PRN PRN Reason: Fever >100.4 F Last Admin: 10/03/18 17:17 Dose: 975 mg Amlodipine Besylate (Norvasc) 10 mg PO DAILY [facility] Last Admin: 10/08/18 09:46 Dose: 10 mg Aspirin (Ecotrin) 81 mg PO DAILY [facility] Last Admin: 10/08/18 09:46 Dose: 81 mg Calcitriol (Rocaltrol) 0.25 mcg PO DAILY [facility] Last Admin: 10/08/18 09:46 Dose: 0.25 mcg Clonidine HCl (Catapres) 0.2 mg PO Q12H [facility] Last Admin: 10/07/18 12:45 Dose: 0.2 mg Clopidogrel Bisulfate (Plavix) 75 mg PO DAILY [facility] Last Admin: 10/08/18 09:46 Dose: 75 mg Diphenoxylate HCl/Atropine (Lomotil 0.025-2.5 Mg Tablet) 1 tab PO DAILY PRN PRN Reason: Diarrhea Epoetin Kyler (Procrit) 10,000 unit IV TTS [facility] Last Admin: 10/07/18 12:33 Dose: 10,000 unit Famotidine (Pepcid) 20 mg PO DAILY [facility] Last Admin: 10/08/18 09:46 Dose: 20 mg Ferric Sodium Gluconate Complex (Ferrlecit) 125 mg IVPB DAILY [facility] Stop: 10/13/18 11:46 Last Admin: 10/07/18 11:46 Dose: 125 mg Finasteride (Proscar) 5 mg PO DAILY [facility] Last Admin: 10/08/18 09:47 Dose: 5 mg Heparin Sodium (Porcine) (Heparin) 5,000 units SC Q8 [facility] Last Admin: 10/08/18 05:27 Dose: 5,000 units Heparin Sodium (Porcine) (Heparin) 3,700 units IVP TTS [facility] Last Admin: 10/07/18 12:33 Dose: 3,700 units Meropenem 500 mg/ Sodium (Chloride) 100 mls @ 100 mls/hr IVPB Q12H [facility]; Protocol Stop: 10/10/18 13:16 Last Admin: 10/08/18 00:34 Dose: 100 mls/hr Oxycodone/Acetaminophen (Percocet 5/325 Mg Tab) 1 tab PO Q6H PRN PRN Reason: Pain, moderate (4-7) Stop: 10/09/18 11:56 Phenytoin Sodium (Dilantin) 100 mg PO TID [facility] Last Admin: 10/08/18 09:46 Dose: 100 mg Rosuvastatin Calcium (Crestor) 10 mg PO HS [facility] Last Admin: 10/07/18 21:45 Dose: 10 mg - Labs Labs: 10/07/18 06:53 10/06/18 07:13 PT 13.3 SECONDS (9.7-12.2) H 10/06/18 07:13 INR 1.2 10/06/18 07:13 APTT 30 SECONDS (21-34) 10/06/18 07:13 - Constitutional Appears: Non-toxic, No Acute Distress - Head Exam Head Exam: NORMOCEPHALIC - Eye Exam Eye Exam: Normal appearance - ENT Exam ENT Exam: Mucous Membranes Moist - Neck Exam Additional comments: Right IJ Permacath - Respiratory Exam Respiratory Exam: Clear to Ausculation Bilateral, NORMAL BREATHING PATTERN. absent: Accessory Muscle Use, Rales, Rhonchi, Wheezes, Respiratory Distress - Cardiovascular Exam Cardiovascular Exam: REGULAR RHYTHM, +S1, +S2 - GI/Abdominal Exam GI & Abdominal Exam: Soft. absent: Distended, Firm, Guarding, Rigid, Tenderness - Extremities Exam Extremities Exam: absent: Calf Tenderness, Pedal Edema Additional comments: palpable thrill over left AVF - Neurological Exam Neurological Exam: Alert, Awake, Oriented x3 - Psychiatric Exam Psychiatric exam: Normal Affect, Normal Mood - Skin Skin Exam: Dry, Warm Assessment and Plan - Assessment and Plan (Free Text) Plan: (1) Sepsis Assessment & Plan: SIRS (fever, leukocytosis, tachypnea, tachyardia), likely secondary to infected permacath - ID consulted, Dr. Nieves * Patient needs to complete two weeks of IV antibiotics - Vascular Surgery consulted, Dr. Hung - permacath placed 08/05/18 ( removed), AVF left arm 08/09/18 - Right IJ permacath placed 10/06/17 - Suspected fat necrosis in previous admission - will need superficialization of AVF once infection resolved - Blood culture (09/30/18) - ESLB + Klebsiella - repeat blood culture (10/03/18) - negative at 4 days - - Urine culture (10/01/18) - ESLB + Klebsiella - CXR shows cardiomegaly, ectatic aorta, atherosclerotic calcifications - Negative flu a/b -Meropenem 500mg IVPB q12h (started on 10/03/18) Status: Acute (2) ESRD (end stage renal disease) on dialysis Assessment & Plan: Nephrology Consult: Dr. Prince - patient scheduled to receive dialysis today -HD TTS - Vascular Surgery: Dr. Hung - Shilely cath placed in right groin on 10/03/18 , removed - Right IJ permacath placed 10/06/17 - will need superficialization of AVF once infection resolved Calcitrol 0.25mcg PO daily Status: Acute (3) Hypertension Assessment & Plan: - Furosemide 80mg daily (hold due to hypotension) - Clonidine 0.1mg q12h - Amlodipine 10mg daily - Losartan 100mg daily (hold due to hypotension) Status: Acute (4) History of coronary artery disease Assessment & Plan: - Patient had a AAA repair 02/2017 - ASA 81mg po daily - Plavix 75mg po daily - Crestor 10mg po HS Status: Acute (5) Hyperlipidemia Assessment & Plan: - Crestor 10mg po HS Status: Acute (6) History of seizure disorder Assessment & Plan: - Phenytoin 100mg po TID Status: Acute (7) History of anemia of chronic disease Assessment & Plan: - EPO 10,000 IV TTS Ferrlecit 125mg IV daily Status: Acute (8) History of gastroesophageal reflux (GERD) Assessment & Plan: - Pepcid 20mg BID Status: Acute (9) History of BPH Assessment & Plan: - Continue Finasteride 5mg daily Status: Acute (10) Prophylactic measure Assessment & Plan: DVT: Heparin 5,000u SC q8h and SCDs GI: Pepcid 20mg PO daily Disposition: As per ID, patient will need IV meropenem for 2 weeks in total, which can be done in a [facility]. Patient may not be able to receive a PICC line or midline as per nephro, therefore [facility] is not an option. Patient will have to be treated in the hospital for the duration of his antibiotic course (will complete on Thursday). All plans and management discussed with Dr. Sin
[2018-10-08] MEDS: Ferric Sodium Gluconat Complex 62.5 mg/5 ml Vial IVPB SCH (10:27)
--- NOTE | 2018-10-08 13:07 | CP.PCM.PN ---
Subjective - Date & Time of Evaluation Date of Evaluation: 10/08/18 Time of Evaluation: 13:05 - Subjective Subjective: More alert now; better appetite BP now better controlled on treatment for urosepsis Objective - Vital Signs/Intake and Output Vital Signs (last 24 hours): Temp Pulse Resp BP Pulse Ox 97.4 F L 100 H 20 143/74 100 10/08/18 08:54 10/08/18 08:54 10/08/18 08:54 10/08/18 08:54 10/08/18 08:54 Intake and Output: 10/08/18 10/08/18 06:59 18:59 Intake Total 400 Balance 400 - Medications Medications: Current Medications Acetaminophen (Tylenol 325mg Tab) 975 mg PO ONCE PRN PRN Reason: Fever >100.4 F Last Admin: 10/03/18 17:17 Dose: 975 mg Amlodipine Besylate (Norvasc) 10 mg PO DAILY [facility] Last Admin: 10/08/18 09:46 Dose: 10 mg Aspirin (Ecotrin) 81 mg PO DAILY [facility] Last Admin: 10/08/18 09:46 Dose: 81 mg Calcitriol (Rocaltrol) 0.25 mcg PO DAILY [facility] Last Admin: 10/08/18 09:46 Dose: 0.25 mcg Clonidine HCl (Catapres) 0.2 mg PO Q12H [facility] Last Admin: 10/07/18 12:45 Dose: 0.2 mg Clopidogrel Bisulfate (Plavix) 75 mg PO DAILY [facility] Last Admin: 10/08/18 09:46 Dose: 75 mg Diphenoxylate HCl/Atropine (Lomotil 0.025-2.5 Mg Tablet) 1 tab PO DAILY PRN PRN Reason: Diarrhea Epoetin Kyler (Procrit) 10,000 unit IV TTS [facility] Last Admin: 10/07/18 12:33 Dose: 10,000 unit Famotidine (Pepcid) 20 mg PO DAILY [facility] Last Admin: 10/08/18 09:46 Dose: 20 mg Ferric Sodium Gluconate Complex (Ferrlecit) 125 mg IVPB DAILY [facility] Stop: 10/13/18 11:46 Last Admin: 10/08/18 10:27 Dose: 125 mg Finasteride (Proscar) 5 mg PO DAILY [facility] Last Admin: 10/08/18 09:47 Dose: 5 mg Heparin Sodium (Porcine) (Heparin) 5,000 units SC Q8 [facility] Last Admin: 10/08/18 05:27 Dose: 5,000 units Heparin Sodium (Porcine) (Heparin) 3,700 units IVP TTS [facility] Last Admin: 10/07/18 12:33 Dose: 3,700 units Meropenem 500 mg/ Sodium (Chloride) 100 mls @ 100 mls/hr IVPB Q12H [facility]; Protocol Stop: 10/10/18 13:16 Last Admin: 10/08/18 13:00 Dose: 100 mls/hr Oxycodone/Acetaminophen (Percocet 5/325 Mg Tab) 1 tab PO Q6H PRN PRN Reason: Pain, moderate (4-7) Stop: 10/09/18 11:56 Phenytoin Sodium (Dilantin) 100 mg PO TID [facility] Last Admin: 10/08/18 09:46 Dose: 100 mg Rosuvastatin Calcium (Crestor) 10 mg PO HS [facility] Last Admin: 10/07/18 21:45 Dose: 10 mg - Labs Labs: 10/07/18 06:53 10/06/18 07:13 PT 13.3 SECONDS (9.7-12.2) H 10/06/18 07:13 INR 1.2 10/06/18 07:13 APTT 30 SECONDS (21-34) 10/06/18 07:13 - Constitutional Appears: No Acute Distress, Confused, Chronically Ill - Head Exam Head Exam: ATRAUMATIC, NORMAL INSPECTION - Eye Exam Eye Exam: EOMI, Normal appearance - Neck Exam Neck Exam: Normal Inspection. absent: Tenderness - Respiratory Exam Respiratory Exam: Clear to Ausculation Bilateral, NORMAL BREATHING PATTERN - Cardiovascular Exam Cardiovascular Exam: REGULAR RHYTHM, +S1 - GI/Abdominal Exam GI & Abdominal Exam: Soft. absent: Tenderness - Extremities Exam Extremities Exam: Normal Inspection. absent: Tenderness - Neurological Exam Neurological Exam: Awake, CN II-XII Intact - Skin Skin Exam: Dry, Warm Assessment and Plan (1) Line sepsis Status: Acute (2) PAD (peripheral artery disease) Status: Acute (3) Bacteremia Status: Acute (4) Hypertensive chronic kidney disease with stage 5 chronic kidney disease or end stage renal disease Status: Acute (5) ESRD (end stage renal disease) on dialysis Status: Acute - Assessment and Plan (Free Text) Plan: IV ABs monitor BP dialysis TTS
[2018-10-08 17:11] LABS: BASO # 0.1 K/uL (0.0-0.2); BASO % 0.7 % (0.0-2.0); EOS # 0.3 K/uL (0.0-0.7); HEMOGLOBIN 9.2 g/dL (12.0-18.0); LYMPH # 1.7 K/uL (1.0-4.3); LYMPH % 12.9 % (20.0-40.0); MEAN CELL VOLUME 82.4 fL (80.0-94.0); MEAN CORPUSCULAR HEMOGLOBIN 26.5 pg (27.0-31.0); MEAN CORPUSCULAR HGB CONC 32.2 g/dL (33.0-37.0); MEAN PLATELET VOLUME 8.5 fL (7.2-11.7); MONO # 1.5 K/uL (0.0-0.8); MONO % 11.5 % (0.0-10.0); NEUT # 9.4 K/uL (1.8-7.0); NEUT % 72.9 % (50.0-75.0); RBC 3.46 Mil/uL (4.40-5.90); RED CELL DISTRIBUTION WIDTH 16.1 % (11.5-14.5); WHITE BLOOD COUNT 12.8 K/uL (4.8-10.8)
[2018-10-08 17:28] LABS: ALB/GLOB RATIO 0.9 (1.0-2.1); ALBUMIN 2.9 g/dL (3.5-5.0); CALCIUM 7.6 mg/dl (8.6-10.4)
--- NOTE | 2018-10-08 19:06 | CP.PCM.PN ---
Subjective - Date & Time of Evaluation Date of Evaluation: 10/08/18 Time of Evaluation: 08:00 - Subjective Subjective: seen on rounds afebrile nad Objective - Vital Signs/Intake and Output Vital Signs (last 24 hours): Temp Pulse Resp BP Pulse Ox 97.7 F 101 H 20 151/74 H 98 10/08/18 16:00 10/08/18 16:00 10/08/18 16:00 10/08/18 16:00 10/08/18 16:00 Intake and Output: 10/08/18 10/09/18 18:59 06:59 Intake Total 400 Balance 400 - Medications Medications: Current Medications Acetaminophen (Tylenol 325mg Tab) 975 mg PO ONCE PRN PRN Reason: Fever >100.4 F Last Admin: 10/03/18 17:17 Dose: 975 mg Amlodipine Besylate (Norvasc) 10 mg PO DAILY [facility] Last Admin: 10/08/18 09:46 Dose: 10 mg Aspirin (Ecotrin) 81 mg PO DAILY [facility] Last Admin: 10/08/18 09:46 Dose: 81 mg Calcitriol (Rocaltrol) 0.25 mcg PO DAILY [facility] Last Admin: 10/08/18 09:46 Dose: 0.25 mcg Clonidine HCl (Catapres) 0.2 mg PO Q12H [facility] Last Admin: 10/07/18 12:45 Dose: 0.2 mg Clopidogrel Bisulfate (Plavix) 75 mg PO DAILY [facility] Last Admin: 10/08/18 09:46 Dose: 75 mg Diphenoxylate HCl/Atropine (Lomotil 0.025-2.5 Mg Tablet) 1 tab PO DAILY PRN PRN Reason: Diarrhea Epoetin Kyler (Procrit) 10,000 unit IV TTS [facility] Last Admin: 10/07/18 12:33 Dose: 10,000 unit Famotidine (Pepcid) 20 mg PO DAILY [facility] Last Admin: 10/08/18 09:46 Dose: 20 mg Ferric Sodium Gluconate Complex (Ferrlecit) 125 mg IVPB DAILY [facility] Stop: 10/13/18 11:46 Last Admin: 10/08/18 10:27 Dose: 125 mg Finasteride (Proscar) 5 mg PO DAILY [facility] Last Admin: 10/08/18 09:47 Dose: 5 mg Heparin Sodium (Porcine) (Heparin) 5,000 units SC Q8 [facility] Last Admin: 10/08/18 05:27 Dose: 5,000 units Heparin Sodium (Porcine) (Heparin) 3,700 units IVP TTS [facility] Last Admin: 10/07/18 12:33 Dose: 3,700 units Meropenem 500 mg/ Sodium (Chloride) 100 mls @ 100 mls/hr IVPB Q12H [facility]; Protocol Stop: 10/10/18 13:16 Last Admin: 10/08/18 13:00 Dose: 100 mls/hr Oxycodone/Acetaminophen (Percocet 5/325 Mg Tab) 1 tab PO Q6H PRN PRN Reason: Pain, moderate (4-7) Stop: 10/09/18 11:56 Phenytoin Sodium (Dilantin) 100 mg PO TID [facility] Last Admin: 10/08/18 18:23 Dose: 100 mg Rosuvastatin Calcium (Crestor) 10 mg PO HS [facility] Last Admin: 10/07/18 21:45 Dose: 10 mg - Labs Labs: 10/08/18 17:05 10/08/18 17:05 PT 13.3 SECONDS (9.7-12.2) H 10/06/18 07:13 INR 1.2 10/06/18 07:13 APTT 30 SECONDS (21-34) 10/06/18 07:13 - Constitutional Appears: Well - Head Exam Head Exam: ATRAUMATIC, NORMAL INSPECTION, NORMOCEPHALIC - Eye Exam Eye Exam: EOMI, Normal appearance, PERRL Pupil Exam: NORMAL ACCOMODATION, PERRL - ENT Exam ENT Exam: Mucous Membranes Moist, Normal Exam - Neck Exam Neck Exam: Full ROM, Normal Inspection. absent: Lymphadenopathy - Respiratory Exam Respiratory Exam: Clear to Ausculation Bilateral, NORMAL BREATHING PATTERN - Cardiovascular Exam Cardiovascular Exam: REGULAR RHYTHM, +S1, +S2. absent: Murmur - GI/Abdominal Exam GI & Abdominal Exam: Soft, Normal Bowel Sounds. absent: Tenderness - Rectal Exam Rectal Exam: NORMAL INSPECTION - Extremities Exam Extremities Exam: Full ROM, Normal Capillary Refill, Normal Inspection. absent: Joint Swelling, Pedal Edema - Back Exam Back Exam: NORMAL INSPECTION - Neurological Exam Neurological Exam: Alert, Awake, CN II-XII Intact, Normal Gait, Oriented x3 - Psychiatric Exam Psychiatric exam: Normal Affect, Normal Mood - Skin Skin Exam: Dry, Intact, Normal Color, Warm Assessment and Plan (1) Bacteremia Status: Acute (2) ESRD (end stage renal disease) on dialysis Status: Acute (3) Hypertensive chronic kidney disease with stage 5 chronic kidney disease or end stage renal disease Status: Acute (4) Line sepsis Status: Acute (5) PAD (peripheral artery disease) Status: Acute (6) Sepsis Status: Acute (7) Chronic anemia Status: Acute (8) End stage renal disease Status: Acute (9) Local infection due to Port-A-Cath Status: Acute (10) UTI (urinary tract infection) Status: Acute (11) Fever Status: Acute - Assessment and Plan (Free Text) Assessment: cont iv antibiotics for 14 days
[2018-10-09] MEDS: Meropenem 500 MG in Sodium Chloride 0.9% 100 ML IVPB SCH ×2 (01:29→12:30)
[2018-10-09] MEDS: Ferric Sodium Gluconat Complex 62.5 mg/5 ml Vial IVPB SCH ×2 (09:47→10:43)
[2018-10-09] MEDS: Epoetin Alfa 10,000 unit/ml Dialysis IV SCH ×2 (09:48→10:02)
--- NOTE | 2018-10-09 11:47 | CP.PCM.PN ---
Subjective - Date & Time of Evaluation Date of Evaluation: 10/09/18 Time of Evaluation: 11:45 - Subjective Subjective: seen on HD tolerating UF using rij permcath no pain appetite fair decreased urine no rash no abdominal pain no palpitations no fever no headache +cough Objective - Vital Signs/Intake and Output Vital Signs (last 24 hours): Temp Pulse Resp BP Pulse Ox 97.9 F 90 18 157/77 H 96 10/09/18 08:45 10/09/18 08:45 10/09/18 08:45 10/09/18 11:15 10/09/18 08:45 Intake and Output: 10/09/18 10/09/18 06:59 18:59 Intake Total 550 Balance 550 - Medications Medications: Current Medications Acetaminophen (Tylenol 325mg Tab) 975 mg PO ONCE PRN PRN Reason: Fever >100.4 F Last Admin: 10/03/18 17:17 Dose: 975 mg Amlodipine Besylate (Norvasc) 10 mg PO DAILY [facility] Last Admin: 10/09/18 09:48 Dose: Not Given Aspirin (Ecotrin) 81 mg PO DAILY [facility] Last Admin: 10/09/18 09:47 Dose: Not Given Calcitriol (Rocaltrol) 0.25 mcg PO DAILY [facility] Last Admin: 10/09/18 09:48 Dose: Not Given Clonidine HCl (Catapres) 0.2 mg PO Q12H [facility] Last Admin: 10/08/18 23:53 Dose: 0.2 mg Clopidogrel Bisulfate (Plavix) 75 mg PO DAILY [facility] Last Admin: 10/09/18 09:49 Dose: Not Given Diphenoxylate HCl/Atropine (Lomotil 0.025-2.5 Mg Tablet) 1 tab PO DAILY PRN PRN Reason: Diarrhea Epoetin Kyler (Procrit) 10,000 unit IV TTS [facility] Last Admin: 10/09/18 10:02 Dose: 10,000 unit Famotidine (Pepcid) 20 mg PO DAILY [facility] Last Admin: 10/09/18 09:48 Dose: Not Given Ferric Sodium Gluconate Complex (Ferrlecit) 125 mg IVPB DAILY [facility] Stop: 10/13/18 11:46 Last Admin: 10/09/18 10:43 Dose: 125 mg Finasteride (Proscar) 5 mg PO DAILY [facility] Last Admin: 10/09/18 09:48 Dose: Not Given Heparin Sodium (Porcine) (Heparin) 5,000 units SC Q8 [facility] Last Admin: 10/09/18 06:41 Dose: 5,000 units Heparin Sodium (Porcine) (Heparin) 3,700 units IVP TTS [facility] Last Admin: 10/09/18 09:47 Dose: Not Given Meropenem 500 mg/ Sodium (Chloride) 100 mls @ 100 mls/hr IVPB Q12H [facility]; Protocol Stop: 10/10/18 13:16 Last Admin: 10/09/18 01:29 Dose: 100 mls/hr Oxycodone/Acetaminophen (Percocet 5/325 Mg Tab) 1 tab PO Q6H PRN PRN Reason: Pain, moderate (4-7) Stop: 10/09/18 11:56 Phenytoin Sodium (Dilantin) 100 mg PO TID [facility] Last Admin: 10/09/18 09:47 Dose: Not Given Rosuvastatin Calcium (Crestor) 10 mg PO HS [facility] Last Admin: 10/08/18 21:24 Dose: 10 mg - Labs Labs: 10/08/18 17:05 10/08/18 17:05 PT 13.3 SECONDS (9.7-12.2) H 10/06/18 07:13 INR 1.2 10/06/18 07:13 APTT 30 SECONDS (21-34) 10/06/18 07:13 - Constitutional Appears: Non-toxic, Chronically Ill - Head Exam Head Exam: ATRAUMATIC, NORMAL INSPECTION - Eye Exam Eye Exam: EOMI, Normal appearance - ENT Exam ENT Exam: Mucous Membranes Moist - Neck Exam Neck Exam: Full ROM - Respiratory Exam Respiratory Exam: Decreased Breath Sounds. absent: Accessory Muscle Use - Cardiovascular Exam Cardiovascular Exam: REGULAR RHYTHM. absent: Rubs - GI/Abdominal Exam GI & Abdominal Exam: Soft. absent: Tenderness - Extremities Exam Extremities Exam: absent: Pedal Edema Assessment and Plan - Assessment and Plan (Free Text) Assessment: bacteremia HD chronic dementia maint HD complete AB and w/u for source of infection
--- NOTE | 2018-10-09 16:36 | CARD ---
APPROVED REPORT Date of service: 09/30/2018 EKG Measurement Heart [id number] <Conclusion> Sinus tachycardia Right bundle branch block Abnormal ECG
[2018-10-10] MEDS: Meropenem 500 MG in Sodium Chloride 0.9% 100 ML IVPB SCH ×2 (00:15→13:57)
[2018-10-10] MEDS: Ferric Sodium Gluconat Complex 62.5 mg/5 ml Vial IVPB SCH (09:02)
[2018-10-11] MEDS: Ferric Sodium Gluconat Complex 62.5 mg/5 ml Vial IVPB SCH (09:40)
[2018-10-11] MEDS: Meropenem 500 MG in Sodium Chloride 0.9% 100 ML IVPB SCH ×2 (10:58→21:31)
--- NOTE | 2018-10-11 11:08 | CP.PCM.PN ---
Subjective - Date & Time of Evaluation Date of Evaluation: 10/11/18 Time of Evaluation: 11:06 - Subjective Subjective: more alert; has been afebrile now stable dialysis 2/2 Hg slowly better with EPO, IV Fe on rx for UTI, line infection new AV fistula with bruit Objective - Vital Signs/Intake and Output Vital Signs (last 24 hours): Temp Pulse Resp BP Pulse Ox 98.0 F 95 H 20 163/82 H 96 10/11/18 08:00 10/11/18 08:00 10/11/18 08:00 10/11/18 08:00 10/11/18 08:00 Intake and Output: 10/11/18 10/11/18 06:59 18:59 Intake Total 400 Output Total 300 Balance 100 - Medications Medications: Current Medications Acetaminophen (Tylenol 325mg Tab) 975 mg PO ONCE PRN PRN Reason: Fever >100.4 F Last Admin: 10/03/18 17:17 Dose: 975 mg Amlodipine Besylate (Norvasc) 10 mg PO DAILY [facility] Last Admin: 10/11/18 09:40 Dose: 10 mg Aspirin (Ecotrin) 81 mg PO DAILY [facility] Last Admin: 10/11/18 09:40 Dose: 81 mg Calcitriol (Rocaltrol) 0.25 mcg PO DAILY [facility] Last Admin: 10/11/18 09:42 Dose: 0.25 mcg Clonidine HCl (Catapres) 0.2 mg PO Q12H [facility] Last Admin: 10/10/18 11:16 Dose: 0.2 mg Clopidogrel Bisulfate (Plavix) 75 mg PO DAILY [facility] Last Admin: 10/11/18 09:40 Dose: 75 mg Diphenoxylate HCl/Atropine (Lomotil 0.025-2.5 Mg Tablet) 1 tab PO DAILY PRN PRN Reason: Diarrhea Epoetin Kyler (Procrit) 10,000 unit IV TTS [facility] Last Admin: 10/09/18 10:02 Dose: 10,000 unit Famotidine (Pepcid) 20 mg PO DAILY [facility] Last Admin: 10/11/18 09:40 Dose: 20 mg Ferric Sodium Gluconate Complex (Ferrlecit) 125 mg IVPB DAILY [facility] Stop: 10/13/18 11:46 Last Admin: 10/11/18 09:40 Dose: 125 mg Finasteride (Proscar) 5 mg PO DAILY [facility] Last Admin: 10/11/18 09:40 Dose: 5 mg Heparin Sodium (Porcine) (Heparin) 5,000 units SC Q8 [facility] Last Admin: 10/11/18 05:30 Dose: 5,000 units Meropenem 500 mg/ Sodium (Chloride) 100 mls @ 100 mls/hr IVPB Q12 [facility]; Protocol Stop: 10/16/18 22:00 Last Admin: 10/11/18 10:58 Dose: 100 mls/hr Phenytoin Sodium (Dilantin) 100 mg PO TID [facility] Last Admin: 10/11/18 09:40 Dose: 100 mg Rosuvastatin Calcium (Crestor) 10 mg PO HS [facility] Last Admin: 10/10/18 21:04 Dose: 10 mg - Labs Labs: 10/08/18 17:05 10/08/18 17:05 PT 13.3 SECONDS (9.7-12.2) H 10/06/18 07:13 INR 1.2 10/06/18 07:13 APTT 30 SECONDS (21-34) 10/06/18 07:13 - Constitutional Appears: No Acute Distress, Chronically Ill - Head Exam Head Exam: ATRAUMATIC, NORMAL INSPECTION - Eye Exam Eye Exam: EOMI, Normal appearance - Neck Exam Neck Exam: Normal Inspection. absent: Tenderness - Respiratory Exam Respiratory Exam: Clear to Ausculation Bilateral, NORMAL BREATHING PATTERN - Cardiovascular Exam Cardiovascular Exam: REGULAR RHYTHM, +S1 - GI/Abdominal Exam GI & Abdominal Exam: Soft. absent: Tenderness - Extremities Exam Extremities Exam: Normal Inspection. absent: Tenderness - Neurological Exam Neurological Exam: Awake, CN II-XII Intact - Skin Skin Exam: Dry, Warm Assessment and Plan (1) Line sepsis Status: Acute (2) PAD (peripheral artery disease) Status: Acute (3) Bacteremia Status: Acute (4) Hypertensive chronic kidney disease with stage 5 chronic kidney disease or end stage renal disease Status: Acute (5) ESRD (end stage renal disease) on dialysis Status: Acute - Assessment and Plan (Free Text) Plan: IV ABs Dialysis TTS Await maturation AV fistula- use permcath for now
--- NOTE | 2018-10-11 11:40 | CP.PCM.PN ---
Subjective - Date & Time of Evaluation Date of Evaluation: 10/11/18 Time of Evaluation: 11:40 - Subjective Subjective: PGY2 Medicine Note for Dr. Sin Patient seen and examined this morning at bedside. No acute events overnight. Patient is still in the hospital receiving IV antibiotics for the duration of his treatment course. No complaints at this time. Objective - Vital Signs/Intake and Output Vital Signs (last 24 hours): Temp Pulse Resp BP Pulse Ox 98.0 F 95 H 20 163/82 H 96 10/11/18 08:00 10/11/18 08:00 10/11/18 08:00 10/11/18 08:00 10/11/18 08:00 Intake and Output: 10/11/18 10/11/18 06:59 18:59 Intake Total 400 Output Total 300 Balance 100 - Medications Medications: Current Medications Acetaminophen (Tylenol 325mg Tab) 975 mg PO ONCE PRN PRN Reason: Fever >100.4 F Last Admin: 10/03/18 17:17 Dose: 975 mg Amlodipine Besylate (Norvasc) 10 mg PO DAILY [facility] Last Admin: 10/11/18 09:40 Dose: 10 mg Aspirin (Ecotrin) 81 mg PO DAILY [facility] Last Admin: 10/11/18 09:40 Dose: 81 mg Calcitriol (Rocaltrol) 0.25 mcg PO DAILY [facility] Last Admin: 10/11/18 09:42 Dose: 0.25 mcg Clonidine HCl (Catapres) 0.2 mg PO Q12H [facility] Last Admin: 10/10/18 11:16 Dose: 0.2 mg Clopidogrel Bisulfate (Plavix) 75 mg PO DAILY [facility] Last Admin: 10/11/18 09:40 Dose: 75 mg Diphenoxylate HCl/Atropine (Lomotil 0.025-2.5 Mg Tablet) 1 tab PO DAILY PRN PRN Reason: Diarrhea Epoetin Kyler (Procrit) 10,000 unit IV TTS [facility] Last Admin: 10/09/18 10:02 Dose: 10,000 unit Famotidine (Pepcid) 20 mg PO DAILY [facility] Last Admin: 10/11/18 09:40 Dose: 20 mg Ferric Sodium Gluconate Complex (Ferrlecit) 125 mg IVPB DAILY [facility] Stop: 10/13/18 11:46 Last Admin: 10/11/18 09:40 Dose: 125 mg Finasteride (Proscar) 5 mg PO DAILY [facility] Last Admin: 10/11/18 09:40 Dose: 5 mg Heparin Sodium (Porcine) (Heparin) 5,000 units SC Q8 [facility] Last Admin: 10/11/18 05:30 Dose: 5,000 units Meropenem 500 mg/ Sodium (Chloride) 100 mls @ 100 mls/hr IVPB Q12 [facility]; Protocol Stop: 10/16/18 22:00 Last Admin: 10/11/18 10:58 Dose: 100 mls/hr Phenytoin Sodium (Dilantin) 100 mg PO TID [facility] Last Admin: 10/11/18 09:40 Dose: 100 mg Rosuvastatin Calcium (Crestor) 10 mg PO HS [facility] Last Admin: 10/10/18 21:04 Dose: 10 mg - Labs Labs: 10/08/18 17:05 10/08/18 17:05 PT 13.3 SECONDS (9.7-12.2) H 10/06/18 07:13 INR 1.2 10/06/18 07:13 APTT 30 SECONDS (21-34) 10/06/18 07:13 - Additional Findings Additional findings: - Constitutional Appears: Non-toxic, No Acute Distress - Head Exam Head Exam: NORMOCEPHALIC - Eye Exam Eye Exam: Normal appearance - ENT Exam ENT Exam: Mucous Membranes Moist - Neck Exam Additional comments: Right IJ Permacath - Respiratory Exam Respiratory Exam: Clear to Ausculation Bilateral, NORMAL BREATHING PATTERN. absent: Accessory Muscle Use, Rales, Rhonchi, Wheezes, Respiratory Distress - Cardiovascular Exam Cardiovascular Exam: REGULAR RHYTHM, +S1, +S2 - GI/Abdominal Exam GI & Abdominal Exam: Soft. absent: Distended, Firm, Guarding, Rigid, Tenderness - Extremities Exam Extremities Exam: absent: Calf Tenderness, Pedal Edema Additional comments: palpable thrill over left AVF - Neurological Exam Neurological Exam: Alert, Awake, Oriented x3 - Psychiatric Exam Psychiatric exam: Normal Affect, Normal Mood - Skin Skin Exam: Dry, Warm Assessment and Plan - Assessment and Plan (Free Text) Plan: (1) Sepsis Assessment & Plan: SIRS (fever, leukocytosis, tachypnea, tachyardia), likely secondary to infected permacath - ID consulted, Dr. Nieves * Patient needs to complete two weeks of IV antibiotics - Vascular Surgery consulted, Dr. Hung - permacath placed 08/05/18 ( removed), AVF left arm 08/09/18 - Right IJ permacath placed 10/06/17 - Suspected fat necrosis in previous admission - will need superficialization of AVF once infection resolved - Blood culture (09/30/18) - ESLB + Klebsiella - repeat blood culture (10/03/18) - negative at 5 days - Urine culture (10/01/18) - ESLB + Klebsiella - repeat urine culture (10/11/18) - CXR shows cardiomegaly, ectatic aorta, atherosclerotic calcifications - Negative flu a/b -Meropenem 500mg IVPB q12h (started on 10/03/18, end date 10/16/18) Status: Acute (2) ESRD (end stage renal disease) on dialysis Assessment & Plan: Nephrology Consult: Dr. Prince - HD TTS - Use permacath until AVF is mature - Vascular Surgery: Dr. Hung - Shilely cath placed in right groin on 10/03/18 , removed - Right IJ permacath placed 10/06/17 Calcitrol 0.25mcg PO daily Status: Acute (3) Hypertension Assessment & Plan: - Furosemide 80mg daily (hold due to hypotension) - Clonidine 0.1mg q12h - Amlodipine 10mg daily - Losartan 100mg daily (hold due to hypotension) Status: Acute (4) History of coronary artery disease Assessment & Plan: - Patient had a AAA repair 02/2017 - ASA 81mg po daily - Plavix 75mg po daily - Crestor 10mg po HS Status: Acute (5) Hyperlipidemia Assessment & Plan: - Crestor 10mg po HS Status: Acute (6) History of seizure disorder Assessment & Plan: - Phenytoin 100mg po TID Status: Acute (7) History of anemia of chronic disease Assessment & Plan: - EPO 10,000 IV TTS Ferrlecit 125mg IV daily Status: Acute (8) History of gastroesophageal reflux (GERD) Assessment & Plan: - Pepcid 20mg BID Status: Acute (9) History of BPH Assessment & Plan: - Continue Finasteride 5mg daily Status: Acute (10) Prophylactic measure Assessment & Plan: DVT: Heparin 5,000u SC q8h and SCDs GI: Pepcid 20mg PO daily Disposition: As per ID, patient will need IV meropenem for 2 weeks in total, which can be done in a [facility]. Patient may not be able to receive a PICC line or midline as per nephro, therefore [facility] is not an option. Patient will have to be treated in the hospital for the duration of his antibiotic course (will complete on Thursday). No changes at this time All plans and management discussed with Dr. Merrick Javed Maggi PGY2
[2018-10-12 09:16] LABS: BASO # 0.1 K/uL (0.0-0.2); BASO % 0.8 % (0.0-2.0); EOS # 0.1 K/uL (0.0-0.7); EOS % 1.3 % (0.0-4.0); HEMOGLOBIN 9.5 g/dL (12.0-18.0); LYMPH # 1.6 K/uL (1.0-4.3); LYMPH % 16.3 % (20.0-40.0); MEAN CORPUSCULAR HEMOGLOBIN 26.8 pg (27.0-31.0); MEAN CORPUSCULAR HGB CONC 32.2 g/dL (33.0-37.0); MEAN PLATELET VOLUME 8.5 fL (7.2-11.7); MONO # 1.1 K/uL (0.0-0.8); MONO % 11.6 % (0.0-10.0); NEUT # 6.7 K/uL (1.8-7.0); RBC 3.54 Mil/uL (4.40-5.90); WHITE BLOOD COUNT 9.6 K/uL (4.8-10.8)
[2018-10-12 09:35] LABS: ALB/GLOB RATIO 0.9 (1.0-2.1)
--- NOTE | 2018-10-12 09:42 | CP.PCM.PN ---
Subjective - Date & Time of Evaluation Date of Evaluation: 10/12/18 Time of Evaluation: 09:41 - Subjective Subjective: seen and examined in hd afebrile last blood cx negative using permcath for hd avf Objective - Vital Signs/Intake and Output Vital Signs (last 24 hours): Temp Pulse Resp BP Pulse Ox 97.9 F 62 20 178/81 H 100 10/12/18 08:37 10/12/18 08:37 10/12/18 08:37 10/12/18 08:37 10/12/18 08:37 Intake and Output: 10/12/18 10/12/18 06:59 18:59 Intake Total 600 Balance 600 - Medications Medications: Current Medications Acetaminophen (Tylenol 325mg Tab) 975 mg PO ONCE PRN PRN Reason: Fever >100.4 F Last Admin: 10/03/18 17:17 Dose: 975 mg Amlodipine Besylate (Norvasc) 10 mg PO DAILY [facility] Last Admin: 10/11/18 09:40 Dose: 10 mg Aspirin (Ecotrin) 81 mg PO DAILY [facility] Last Admin: 10/11/18 09:40 Dose: 81 mg Calcitriol (Rocaltrol) 0.25 mcg PO DAILY [facility] Last Admin: 10/11/18 09:42 Dose: 0.25 mcg Clonidine HCl (Catapres) 0.2 mg PO Q12H [facility] Last Admin: 10/10/18 11:16 Dose: 0.2 mg Clopidogrel Bisulfate (Plavix) 75 mg PO DAILY [facility] Last Admin: 10/11/18 09:40 Dose: 75 mg Diphenoxylate HCl/Atropine (Lomotil 0.025-2.5 Mg Tablet) 1 tab PO DAILY PRN PRN Reason: Diarrhea Epoetin Kyler (Procrit) 10,000 unit IV TTS [facility] Last Admin: 10/09/18 10:02 Dose: 10,000 unit Famotidine (Pepcid) 20 mg PO DAILY [facility] Last Admin: 10/11/18 09:40 Dose: 20 mg Ferric Sodium Gluconate Complex (Ferrlecit) 125 mg IVPB DAILY [facility] Stop: 10/13/18 11:46 Last Admin: 10/11/18 09:40 Dose: 125 mg Finasteride (Proscar) 5 mg PO DAILY [facility] Last Admin: 10/11/18 09:40 Dose: 5 mg Heparin Sodium (Porcine) (Heparin) 5,000 units SC Q8 [facility] Last Admin: 10/12/18 05:48 Dose: 5,000 units Meropenem 500 mg/ Sodium (Chloride) 100 mls @ 100 mls/hr IVPB Q12 [facility]; Protocol Stop: 10/16/18 22:00 Last Admin: 10/11/18 21:31 Dose: 100 mls/hr Phenytoin Sodium (Dilantin) 100 mg PO TID [facility] Last Admin: 10/11/18 18:03 Dose: 100 mg Rosuvastatin Calcium (Crestor) 10 mg PO HS [facility] Last Admin: 10/11/18 21:30 Dose: 10 mg - Labs Labs: 10/12/18 09:03 10/12/18 09:03 PT 13.3 SECONDS (9.7-12.2) H 10/06/18 07:13 INR 1.2 10/06/18 07:13 APTT 30 SECONDS (21-34) 10/06/18 07:13 - Constitutional Appears: Non-toxic, No Acute Distress, Chronically Ill - Head Exam Head Exam: NORMAL INSPECTION, NORMOCEPHALIC - Eye Exam Eye Exam: Normal appearance, PERRL - ENT Exam ENT Exam: Mucous Membranes Moist, Normal Exam - Neck Exam Neck Exam: Full ROM - Respiratory Exam Respiratory Exam: Clear to Ausculation Bilateral, NORMAL BREATHING PATTERN - Cardiovascular Exam Cardiovascular Exam: REGULAR RHYTHM, RRR - GI/Abdominal Exam GI & Abdominal Exam: Distended, Soft - Extremities Exam Extremities Exam: Full ROM, Normal Inspection - Neurological Exam Neurological Exam: Alert, Awake, Oriented x3 Assessment and Plan (1) Bacteremia Status: Acute (2) ESRD (end stage renal disease) on dialysis Status: Acute (3) History of anemia of chronic disease Status: Acute - Assessment and Plan (Free Text) Assessment: antibiotics per id hd tts
[2018-10-12] MEDS: Ferric Sodium Gluconat Complex 62.5 mg/5 ml Vial IVPB SCH ×2 (10:28→10:57)
[2018-10-12] MEDS: Meropenem 500 MG in Sodium Chloride 0.9% 100 ML IVPB SCH ×2 (10:28→21:43)
[2018-10-12] MEDS: Epoetin Alfa 10,000 unit/ml Dialysis IV SCH (10:57)
--- NOTE | 2018-10-12 11:51 | CP.PCM.PN ---
Subjective - Date & Time of Evaluation Date of Evaluation: 10/12/18 Time of Evaluation: 10:30 - Subjective Subjective: Medicine progress note ( Dr. Sin's service) Patient was seen and examined at bedside as he was receiving his dialysis treatment in no acute distress. Patient states that he is feeling well and denies any complaints or discomfort. Objective - Vital Signs/Intake and Output Vital Signs (last 24 hours): Temp Pulse Resp BP Pulse Ox 97.6 F 89 16 146/84 98 10/12/18 08:50 10/12/18 08:50 10/12/18 08:50 10/12/18 11:20 10/12/18 08:50 Intake and Output: 10/12/18 10/12/18 06:59 18:59 Intake Total 600 Balance 600 - Medications Medications: Current Medications Acetaminophen (Tylenol 325mg Tab) 975 mg PO ONCE PRN PRN Reason: Fever >100.4 F Last Admin: 10/03/18 17:17 Dose: 975 mg Amlodipine Besylate (Norvasc) 10 mg PO DAILY [facility] Last Admin: 10/12/18 10:28 Dose: Not Given Aspirin (Ecotrin) 81 mg PO DAILY [facility] Last Admin: 10/12/18 10:28 Dose: Not Given Calcitriol (Rocaltrol) 0.25 mcg PO DAILY [facility] Last Admin: 10/12/18 10:29 Dose: Not Given Clonidine HCl (Catapres) 0.2 mg PO Q12H [facility] Last Admin: 10/10/18 11:16 Dose: 0.2 mg Clopidogrel Bisulfate (Plavix) 75 mg PO DAILY [facility] Last Admin: 10/12/18 10:29 Dose: Not Given Diphenoxylate HCl/Atropine (Lomotil 0.025-2.5 Mg Tablet) 1 tab PO DAILY PRN PRN Reason: Diarrhea Epoetin Kyler (Procrit) 10,000 unit IV TTS [facility] Last Admin: 10/12/18 10:57 Dose: 10,000 unit Famotidine (Pepcid) 20 mg PO DAILY [facility] Last Admin: 10/12/18 10:29 Dose: Not Given Ferric Sodium Gluconate Complex (Ferrlecit) 125 mg IVPB DAILY [facility] Stop: 10/13/18 11:46 Last Admin: 10/12/18 10:57 Dose: 125 mg Finasteride (Proscar) 5 mg PO DAILY [facility] Last Admin: 10/12/18 10:29 Dose: Not Given Heparin Sodium (Porcine) (Heparin) 5,000 units SC Q8 [facility] Last Admin: 10/12/18 05:48 Dose: 5,000 units Heparin Sodium (Porcine) (Heparin) 3,700 units IVP TTS [facility] Meropenem 500 mg/ Sodium (Chloride) 100 mls @ 100 mls/hr IVPB Q12 [facility]; Protocol Stop: 10/16/18 22:00 Last Admin: 10/12/18 10:28 Dose: Not Given Phenytoin Sodium (Dilantin) 100 mg PO TID [facility] Last Admin: 10/12/18 10:27 Dose: Not Given Rosuvastatin Calcium (Crestor) 10 mg PO HS [facility] Last Admin: 10/11/18 21:30 Dose: 10 mg - Labs Labs: 10/12/18 09:03 10/12/18 09:03 PT 13.3 SECONDS (9.7-12.2) H 10/06/18 07:13 INR 1.2 10/06/18 07:13 APTT 30 SECONDS (21-34) 10/06/18 07:13 - Constitutional Appears: No Acute Distress - Head Exam Head Exam: ATRAUMATIC, NORMAL INSPECTION - Eye Exam Eye Exam: EOMI - ENT Exam ENT Exam: Mucous Membranes Moist - Neck Exam Additional comments: Right IJ permacath placed 10/06/17 - Respiratory Exam Respiratory Exam: Clear to Ausculation Bilateral, NORMAL BREATHING PATTERN. absent: Rhonchi, Wheezes, Respiratory Distress - Cardiovascular Exam Cardiovascular Exam: REGULAR RHYTHM, +S1, +S2 - GI/Abdominal Exam GI & Abdominal Exam: Soft, Normal Bowel Sounds. absent: Distended, Firm, Guarding, Rigid, Tenderness - Extremities Exam Extremities Exam: absent: Calf Tenderness, Pedal Edema Additional comments: Left forearm AVF Bruit is audible - Neurological Exam Neurological Exam: Alert, Awake, Oriented x3 - Psychiatric Exam Psychiatric exam: Normal Affect - Skin Skin Exam: Normal Color Assessment and Plan (1) Sepsis Assessment & Plan: SIRS (fever, leukocytosis, tachypnea, tachyardia), likely secondary to infected permacath - ID consulted, Dr. Nieves * Patient needs to complete two weeks of IV antibiotics - Vascular Surgery consulted, Dr. Hung - permacath placed 08/05/18 ( removed), AVF left arm 08/09/18 - Right IJ permacath placed 10/06/17 - Suspected fat necrosis in previous admission - will need superficialization of AVF once infection resolved - Blood culture (09/30/18) - ESLB + Klebsiella - repeat blood culture (10/03/18) - negative at 5 days - Urine culture (10/01/18) - ESLB + Klebsiella - repeat urine culture (10/11/18) - CXR shows cardiomegaly, ectatic aorta, atherosclerotic calcifications - Negative flu a/b -Meropenem 500mg IVPB q12h (started on 10/03/18, end date 10/16/18) Status: Acute (2) ESRD (end stage renal disease) on dialysis Assessment & Plan: Nephrology Consult: Dr. Prince - HD TTS - Use permacath until AVF is mature - Vascular Surgery: Dr. Hung - Shilely cath placed in right groin on 10/03/18 , removed - Right IJ permacath placed 10/06/17 Calcitrol 0.25mcg PO daily Status: Acute (3) Hypertension Assessment & Plan: - Furosemide 80mg daily (held due to hypotension) - Clonidine 0.1mg q12h - Amlodipine 10mg daily - Losartan 100mg daily (held due to hypotension) Status: Acute (4) History of coronary artery disease Assessment & Plan: - Patient had a AAA repair 02/2017 - ASA 81mg po daily - Plavix 75mg po daily - Crestor 10mg po HS Status: Acute (5) Hyperlipidemia Assessment & Plan: - Crestor 10mg po HS Status: Acute (6) History of seizure disorder Assessment & Plan: - Phenytoin 100mg po TID Status: Acute (7) History of anemia of chronic disease Assessment & Plan: - EPO 10,000 IV TTS Ferrlecit 125mg IV daily Status: Acute (8) History of gastroesophageal reflux (GERD) Assessment & Plan: - Pepcid 20mg BID Status: Acute (9) History of BPH Assessment & Plan: - Continue Finasteride 5mg daily Status: Acute (10) Prophylactic measure Assessment & Plan: DVT: Heparin 5,000u SC q8h and SCDs GI: Pepcid 20mg PO daily Disposition: As per ID, patient will need IV meropenem for 2 weeks in total, which can be done in a [facility]. Patient may not be able to receive a PICC line or midline as per nephro, therefore [facility] is not an option. Patient will have to be treated in the hospital for the duration of his antibiotic course (will complete on Thursday). No changes at this time All plans and management discussed with Dr. Sin Status: Acute
[2018-10-12 16:09] VITALS: RESP 20
[2018-10-13 07:46] LABS: BASO # 0.1 K/uL (0.0-0.2); BASO % 1.5 % (0.0-2.0); EOS # 0.1 K/uL (0.0-0.7); EOS % 1.8 % (0.0-4.0); HEMOGLOBIN 9.7 g/dL (12.0-18.0); LYMPH # 1.8 K/uL (1.0-4.3); LYMPH % 21.7 % (20.0-40.0); MEAN CELL VOLUME 83.7 fL (80.0-94.0); MEAN CORPUSCULAR HEMOGLOBIN 27.7 pg (27.0-31.0); MEAN PLATELET VOLUME 8.5 fL (7.2-11.7); MONO # 1.4 K/uL (0.0-0.8); MONO % 17.1 % (0.0-10.0); NEUT # 4.9 K/uL (1.8-7.0); NEUT % 57.9 % (50.0-75.0); RBC 3.5 Mil/uL (4.40-5.90); RED CELL DISTRIBUTION WIDTH 16.1 % (11.5-14.5); WHITE BLOOD COUNT 8.5 K/uL (4.8-10.8)
[2018-10-13 08:10] LABS: ALB/GLOB RATIO 0.9 (1.0-2.1); ALBUMIN 2.9 g/dL (3.5-5.0); CALCIUM 8.1 mg/dl (8.6-10.4)
[2018-10-13] MEDS: Meropenem 500 MG in Sodium Chloride 0.9% 100 ML IVPB SCH ×2 (09:29→22:33)
[2018-10-13] MEDS: Ferric Sodium Gluconat Complex 62.5 mg/5 ml Vial IVPB SCH (11:43)
--- NOTE | 2018-10-13 14:08 | CP.PCM.PN ---
Subjective - Date & Time of Evaluation Date of Evaluation: 10/13/18 Time of Evaluation: 14:06 - Subjective Subjective: more alert; no new changes stable dialysis 2/5 +UTI and bacteremia- on rx for ID eating better Objective - Vital Signs/Intake and Output Vital Signs (last 24 hours): Temp Pulse Resp BP Pulse Ox 97.9 F 87 20 158/75 H 98 10/13/18 08:08 10/13/18 08:08 10/13/18 08:08 10/13/18 08:08 10/13/18 08:08 Intake and Output: 10/13/18 10/13/18 06:59 18:59 Intake Total 460 Balance 460 - Medications Medications: Current Medications Acetaminophen (Tylenol 325mg Tab) 975 mg PO ONCE PRN PRN Reason: Fever >100.4 F Last Admin: 10/03/18 17:17 Dose: 975 mg Amlodipine Besylate (Norvasc) 10 mg PO DAILY [facility] Last Admin: 10/13/18 09:29 Dose: 10 mg Aspirin (Ecotrin) 81 mg PO DAILY [facility] Last Admin: 10/13/18 09:29 Dose: 81 mg Calcitriol (Rocaltrol) 0.25 mcg PO DAILY [facility] Last Admin: 10/13/18 09:29 Dose: 0.25 mcg Clonidine HCl (Catapres) 0.2 mg PO Q12H [facility] Last Admin: 10/13/18 11:43 Dose: 0.2 mg Clopidogrel Bisulfate (Plavix) 75 mg PO DAILY [facility] Last Admin: 10/13/18 09:29 Dose: 75 mg Diphenoxylate HCl/Atropine (Lomotil 0.025-2.5 Mg Tablet) 1 tab PO DAILY PRN PRN Reason: Diarrhea Epoetin Kyler (Procrit) 10,000 unit IV TTS [facility] Last Admin: 10/12/18 10:57 Dose: 10,000 unit Famotidine (Pepcid) 20 mg PO DAILY [facility] Last Admin: 10/13/18 09:29 Dose: 20 mg Finasteride (Proscar) 5 mg PO DAILY [facility] Last Admin: 10/13/18 09:29 Dose: 5 mg Heparin Sodium (Porcine) (Heparin) 5,000 units SC Q8 [facility] Last Admin: 10/13/18 13:49 Dose: 5,000 units Heparin Sodium (Porcine) (Heparin) 3,700 units IVP TTS [facility] Last Admin: 10/12/18 11:49 Dose: 3,700 units Meropenem 500 mg/ Sodium (Chloride) 100 mls @ 100 mls/hr IVPB Q12 [facility]; Protocol Stop: 10/16/18 22:00 Last Admin: 10/13/18 09:29 Dose: 100 mls/hr Phenytoin Sodium (Dilantin) 100 mg PO TID [facility] Last Admin: 10/13/18 13:49 Dose: 100 mg Rosuvastatin Calcium (Crestor) 10 mg PO HS [facility] Last Admin: 10/12/18 21:43 Dose: 10 mg - Labs Labs: 10/13/18 07:35 10/13/18 07:35 PT 13.3 SECONDS (9.7-12.2) H 10/06/18 07:13 INR 1.2 10/06/18 07:13 APTT 30 SECONDS (21-34) 10/06/18 07:13 - Constitutional Appears: No Acute Distress, Chronically Ill - Head Exam Head Exam: ATRAUMATIC, NORMAL INSPECTION - Eye Exam Eye Exam: EOMI, Normal appearance - Neck Exam Neck Exam: Normal Inspection. absent: Tenderness - Respiratory Exam Respiratory Exam: Clear to Ausculation Bilateral, NORMAL BREATHING PATTERN - Cardiovascular Exam Cardiovascular Exam: REGULAR RHYTHM, +S1 - GI/Abdominal Exam GI & Abdominal Exam: Soft. absent: Tenderness - Extremities Exam Extremities Exam: Normal Inspection. absent: Tenderness - Neurological Exam Neurological Exam: Awake, CN II-XII Intact - Skin Skin Exam: Dry, Warm Assessment and Plan (1) Line sepsis Status: Acute (2) PAD (peripheral artery disease) Status: Acute (3) Bacteremia Status: Acute (4) Hypertensive chronic kidney disease with stage 5 chronic kidney disease or end stage renal disease Status: Acute (5) ESRD (end stage renal disease) on dialysis Status: Acute - Assessment and Plan (Free Text) Plan: ABs as per ID Dialysis in AM using permcath AV access was revised- good bruit
--- NOTE | 2018-10-13 16:42 | CP.PCM.PN ---
Subjective - Date & Time of Evaluation Date of Evaluation: 10/13/18 Time of Evaluation: 07:00 - Subjective Subjective: Medicine progress note ( Dr. Sin's service) Patient was seen and examined at bedside as he was receiving his dialysis treatment in no acute distress. Patient states that he is feeling well and denies any complaints or discomfort. Objective - Vital Signs/Intake and Output Vital Signs (last 24 hours): Temp Pulse Resp BP Pulse Ox 97.9 F 87 20 158/75 H 98 10/13/18 08:08 10/13/18 08:08 10/13/18 08:08 10/13/18 08:08 10/13/18 08:08 Intake and Output: 10/13/18 10/13/18 06:59 18:59 Intake Total 460 Balance 460 - Medications Medications: Current Medications Acetaminophen (Tylenol 325mg Tab) 975 mg PO ONCE PRN PRN Reason: Fever >100.4 F Last Admin: 10/03/18 17:17 Dose: 975 mg Amlodipine Besylate (Norvasc) 10 mg PO DAILY [facility] Last Admin: 10/13/18 09:29 Dose: 10 mg Aspirin (Ecotrin) 81 mg PO DAILY [facility] Last Admin: 10/13/18 09:29 Dose: 81 mg Calcitriol (Rocaltrol) 0.25 mcg PO DAILY [facility] Last Admin: 10/13/18 09:29 Dose: 0.25 mcg Clonidine HCl (Catapres) 0.2 mg PO Q12H [facility] Last Admin: 10/13/18 11:43 Dose: 0.2 mg Clopidogrel Bisulfate (Plavix) 75 mg PO DAILY [facility] Last Admin: 10/13/18 09:29 Dose: 75 mg Diphenoxylate HCl/Atropine (Lomotil 0.025-2.5 Mg Tablet) 1 tab PO DAILY PRN PRN Reason: Diarrhea Epoetin Kyler (Procrit) 10,000 unit IV TTS [facility] Last Admin: 10/12/18 10:57 Dose: 10,000 unit Famotidine (Pepcid) 20 mg PO DAILY [facility] Last Admin: 10/13/18 09:29 Dose: 20 mg Finasteride (Proscar) 5 mg PO DAILY [facility] Last Admin: 10/13/18 09:29 Dose: 5 mg Heparin Sodium (Porcine) (Heparin) 5,000 units SC Q8 [facility] Last Admin: 10/13/18 13:49 Dose: 5,000 units Heparin Sodium (Porcine) (Heparin) 3,700 units IVP TTS [facility] Last Admin: 10/12/18 11:49 Dose: 3,700 units Meropenem 500 mg/ Sodium (Chloride) 100 mls @ 100 mls/hr IVPB Q12 [facility]; Protocol Stop: 10/16/18 22:00 Last Admin: 10/13/18 09:29 Dose: 100 mls/hr Losartan Potassium (Cozaar) 50 mg PO DAILY [facility] Last Admin: 10/13/18 15:54 Dose: 50 mg Phenytoin Sodium (Dilantin) 100 mg PO TID [facility] Last Admin: 10/13/18 13:49 Dose: 100 mg Rosuvastatin Calcium (Crestor) 10 mg PO HS [facility] Last Admin: 10/12/18 21:43 Dose: 10 mg - Labs Labs: 10/13/18 07:35 10/13/18 07:35 PT 13.3 SECONDS (9.7-12.2) H 10/06/18 07:13 INR 1.2 10/06/18 07:13 APTT 30 SECONDS (21-34) 10/06/18 07:13 - Additional Findings Additional findings: - Constitutional Appears: No Acute Distress - Head Exam Head Exam: ATRAUMATIC, NORMAL INSPECTION - Eye Exam Eye Exam: EOMI - ENT Exam ENT Exam: Mucous Membranes Moist - Neck Exam Additional comments: Right IJ permacath placed 10/06/17 - Respiratory Exam Respiratory Exam: Clear to Ausculation Bilateral, NORMAL BREATHING PATTERN. absent: Rhonchi, Wheezes, Respiratory Distress - Cardiovascular Exam Cardiovascular Exam: REGULAR RHYTHM, +S1, +S2 - GI/Abdominal Exam GI & Abdominal Exam: Soft, Normal Bowel Sounds. absent: Distended, Firm, Guarding, Rigid, Tenderness - Extremities Exam Extremities Exam: absent: Calf Tenderness, Pedal Edema Additional comments: Left forearm AVF Bruit is audible - Neurological Exam Neurological Exam: Alert, Awake, Oriented x3 - Psychiatric Exam Psychiatric exam: Normal Affect Assessment and Plan - Assessment and Plan (Free Text) Assessment: (1) Sepsis, resolved Assessment & Plan: SIRS (fever, leukocytosis, tachypnea, tachyardia), likely secondary to infected permacath + UTI - ID consulted, Dr. Nieves * Patient needs to complete two weeks of IV antibiotics - Vascular Surgery consulted, Dr. Hung - permacath placed 08/05/18 ( removed), AVF left arm 08/09/18 - Right IJ permacath placed 10/06/17 - Suspected fat necrosis in previous admission - will need superficialization of AVF once infection resolved - Blood culture (09/30/18) - ESLB + Klebsiella - repeat blood culture (10/03/18) - negative at 5 days - Urine culture (10/01/18) - ESLB + Klebsiella - repeat urine culture (10/11/18)- gram + cocci - CXR shows cardiomegaly, ectatic aorta, atherosclerotic calcifications - Negative flu a/b -Meropenem 500mg IVPB q12h (started on 10/03/18, end date 10/16/18) Status: Acute (2) ESRD (end stage renal disease) on dialysis Assessment & Plan: Nephrology Consult: Dr. Prince - HD TTS - Use permacath until AVF is mature - Vascular Surgery: Dr. Hung - Shilely cath placed in right groin on 10/03/18 , removed - Right IJ permacath placed 10/06/17 Calcitrol 0.25mcg PO daily Status: Acute (3) Hypertension Assessment & Plan: - Furosemide 80mg daily (held due to hypotension) - Clonidine 0.2mg q12h - Amlodipine 10mg daily - Losartan 100mg daily (held due to hypotension) - started Losartan 50mg daily on 10/13/18 due to elevated bps Status: Acute (4) History of coronary artery disease Assessment & Plan: - Patient had a AAA repair 02/2017 - ASA 81mg po daily - Plavix 75mg po daily - Crestor 10mg po HS Status: Acute (5) Hyperlipidemia Assessment & Plan: - Crestor 10mg po HS Status: Acute (6) History of seizure disorder Assessment & Plan: - Phenytoin 100mg po TID Status: Acute (7) History of anemia of chronic disease Assessment & Plan: - EPO 10,000 IV TTS Ferrlecit 125mg IV daily Status: Acute (8) History of gastroesophageal reflux (GERD) Assessment & Plan: - Pepcid 20mg BID Status: Acute (9) History of BPH Assessment & Plan: - Continue Finasteride 5mg daily Status: Acute (10) Prophylactic measure Assessment & Plan: DVT: Heparin 5,000u SC q8h and SCDs GI: Pepcid 20mg PO daily Status: Acute Disposition: As per ID, patient will need IV meropenem for 2 weeks in total, which can be done in a [facility]. Patient may not receive a PICC line or midline as per nephro, therefore [facility] is not an option. Patient stable for discharge to [facility] as patient can get antibiotics through IV until 10/16/18. All plans and management discussed with Dr. Sin
[2018-10-13 17:05] VITALS: BP 118/75; PULSE 82; TEMP 97.3; O2SAT 100
--- NOTE | 2018-10-18 07:39 | DS ---
HOSPITAL COURSE: The patient was admitted to the hospital with chief complaints of fever, weakness, infected catheter. The patient started IV antibiotics. Surgical consult. Catheter changed. The patient transferred to [facility] IV antibiotics. DIAGNOSES: renal disease, infected catheter. Arthur Sin MD
== END 2018-10-13 23:48 | DRG 252 ==
LOC: C.ER 20:24 → C.9E 22:08 → C.9I 10-01 01:32 → C.5S 10-01 21:33 → C.3T 10-06 04:58
PROVIDERS: ADMIT Internal Medicine Pulmonary Disease; ATTEND Internal Medicine Pulmonary Disease
PROC: 05H533Z Insertion of Infusion Device into Right Subclavian Vein, Percutaneous Approach (ICD-10-PCS; 2018-10-06)
PROC: 5A1D70Z Performance of Urinary Filtration, Intermittent, Less than 6 Hours Per Day (ICD-10-PCS; 2018-10-06)
PROC: 051C0ZY Bypass Left Basilic Vein to Upper Vein, Open Approach (ICD-10-PCS; principal; 2018-10-06 09:00)
DX: T80.211A Bloodstream infection due to central venous catheter, initial encounter (principal); A41.50 Gram-negative sepsis, unspecified; N18.6 End stage renal disease; N39.0 Urinary tract infection, site not specified; I12.0 Hypertensive chronic kidney disease with stage 5 chronic kidney disease or end stage renal disease; N40.0 Benign prostatic hyperplasia without lower urinary tract symptoms; Y84.8 Other medical procedures as the cause of abnormal reaction of the patient, or of later complication, without mention of misadventure at the time of the procedure; F03.90 Unspecified dementia, unspecified severity, without behavioral disturbance, psychotic disturbance, mood disturbance, and anxiety; F17.210 Nicotine dependence, cigarettes, uncomplicated; G40.909 Epilepsy, unspecified, not intractable, without status epilepticus; E78.5 Hyperlipidemia, unspecified; I95.9 Hypotension, unspecified; D63.8 Anemia in other chronic diseases classified elsewhere; I25.10 Atherosclerotic heart disease of native coronary artery without angina pectoris; I73.9 Peripheral vascular disease, unspecified; K21.9 Gastro-esophageal reflux disease without esophagitis; Z83.3 Family history of diabetes mellitus; Z86.73 Personal history of transient ischemic attack (TIA), and cerebral infarction without residual deficits; Z80.42 Family history of malignant neoplasm of prostate; Z99.2 Dependence on renal dialysis